=== PATIENT | male | born 1945 | race Hispanic/Latino ===

== ENCOUNTER 2018-04-25 20:08 | Emergency (ER) | payer BC, OTHER ==
--- OUTSIDE RECORDS SUMMARY | 2018-04-25 20:10 | XMS REPORT | Clinical Summary ---
:1945 Author Organization [facility] Address [address] [place] [address] Care Team Providers Name Role Phone Asked, No Pcp Primary Care Provider Unavailable Allergies Not on File Current Medications Prescription Sig. Disp. Refills Start Date End Date Status metFORMIN (GLUCOPHAGE) Take 1,000 mg by Active 500 mg tablet mouth 2 (two) times a day with meals. chlorthalidone Take 25 mg by mouth Active (HYGROTEN) 25 MG tablet daily. repaglinide (PRANDIN) 1 Take 1 mg by mouth 3 Active MG tablet (three) times a day before meals. amLODIPine (NORVASC) 5 Take 5 mg by mouth Active mg tablet daily. olmesartan (BENICAR) 40 Take 40 mg by mouth Active MG tablet daily. atorvastatin (LIPITOR) Take 40 mg by mouth Active 40 MG tablet daily. hydrALAZINE (APRESOLINE) Take 50 mg by mouth Active 50 MG tablet 2 (two) times a day. clopidogrel (PLAVIX) 75 Take 75 mg by mouth Active mg tablet daily. famotidine (PEPCID) 20 Take 20 mg by mouth Active MG tablet 2 (two) times a day as needed for indigestion or heartburn. omega-3 acid ethyl Take 1 g by mouth 2 Active esters (LOVAZA) 1 gram (two) times a day. capsule nebivolol (BYSTOLIC) 5 Take 5 mg by mouth Active MG tablet daily. aspirin (ECOTRIN) 81 MG Take 81 mg by mouth Active enteric coated tablet daily. nitroglycerin Place 0.4 mg under Active (NITROSTAT) 0.4 MG SL the tongue every 5 tablet (five) minutes as needed for chest pain. sodium chloride (OCEAN) 1 spray into each Active 0.65 % nasal spray nostril as needed for rhinitis. insulin GLARGINE Inject 28 Units Active (LANTUS) 100 unit/mL under the skin injection (vial) daily. Active Problems Problem Noted Date Chest pain 01/22/2017 Coronary artery disease involving [place] coronary artery 01/22/2017 Type 2 diabetes mellitus 01/22/2017 Essential hypertension 01/22/2017 Family History Medical History Relation Name Comments Diabetes Father Relation Name Status Comments Father Social History Tobacco Use Types Packs/Day Years Used Date Former Smoker Cigarettes 2 1.5 Quit: 1986 Alcohol Use Drinks/Week oz/Week Comments Yes sociable Sex Assigned at Date Recorded Not on file Last Filed Vital Signs Not on file Plan of Treatment Health Maintenance Due Date Last Done Comments DIABETIC FOOT EXAM 01/07/1954 DIABETIC RETINAL EYE EXAM 01/07/1954 URINE MICROALBUMIN 01/07/1954 COLON CANCER SCREENING 01/07/1994 SHINGRIX VACCINE (#1) 01/07/1994 ZOSTER VACCINE 2004 PNEUMOCOCCAL POLYSACCHARIDE VACCINE AGE 65 AND OVER 01/07/2009 PNEUMOCOCCAL-13 01/07/2009 INFLUENZA VACCINE 06/06/2018 Results Not on fileafter 04/24/2017 Insurance Payer Benefit Plan / Group Subscriber ID Type Phone Address BCBS BCBS CHOICE PPO/FEDERAL EMPL PPO xxxxxxxxxxxx PPO MEDICARE MEDICARE PART A AND B xxxxxxxxxx Medicare [place], [place] Home: [id number] [address] y [phone] [id number]
[2018-04-25] MEDS ORDERED: FLUORESCEIN SODIUM 0.6 MG/WRAP ONE (20:39)
[2018-04-25] MEDS ORDERED: TETRACAINE HCL 0.5% 2ML OPTH ONE (20:40)
--- NOTE | 2018-04-25 21:50 | EDPHYS ---
Physician Documentation [facility] Name: Kel Clark Age: 73 yrs Sex: Male : 1945 Arrival Date: 04/25/2018 Time: 20:12 Bed 10 Private MD: Blake Patel V ED Physician Salomon Marshall HPI: 04/26 00:00 This 73 yrs old Male presents to ER via Ambulatory with complaints of Left Eye pm1 Pain. 00:00 The patient is experiencing itching. 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 Duration: the symptoms are continuous. Aggravated by closing eye, Alleviated by nothing. Associated signs and symptoms: Pertinent negatives: None. fever, headache. Patient wears glasses. Severity of symptoms: in the emergency department the symptoms are unchanged. The patient has been recently seen by a physician: Dr. Griffin Rousseau with left eye injections for DM retinopathy. No changes in vision. Historical: - Allergies: 04/25 20:23 No Known Allergies; aj1 - Home Meds: 20:23 aspirin 325 mg Oral TbEC 1 tab once daily [Active]; Plavix 75 mg Oral tab 1 tab once aj1 daily [Active]; atorvastatin 40 mg Oral tab 1 tab once daily [Active]; Benicar 20 mg Oral tab 1 tab once daily [Active]; Insulin: Regular Sub-Q [Active]; Januvia 100 mg Oral tab 1 tab once daily [Active]; - PMHx: 20:23 Diabetes - IDDM; High Cholesterol; Hypertension; aj1 20:24 cardiac stent; aj1 - PSHx: 20:23 None; aj1 - Immunization history:: Flu vaccine is not up to date. - Social history:: Smoking status: Patient/guardian denies using tobacco. - Ebola Screening: : Patient denies travel to an Ebola-affected area in the 21 days before illness onset. ROS: 04/26 00:00 Constitutional: Negative for fever, chills, and weight loss. pm1 ENT: Negative for injury, pain, and discharge, Neck: Negative for injury, pain, and swelling, Cardiovascular: Negative for chest pain, palpitations, and edema, Respiratory: Negative for shortness of breath, cough, wheezing, and pleuritic chest pain, Abdomen/GI: Negative for abdominal pain, nausea, vomiting, diarrhea, and constipation, Back: Negative for injury and pain, : Negative for injury, bleeding, discharge, and swelling, MS/Extremity: Negative for injury and deformity, Skin: Negative for injury, rash, and discoloration. Neuro: Negative for headache, weakness, numbness, tingling, and seizure. Eyes: Positive for foreign body sensation, Negative for itching, matting, pain, vision loss, visual disturbance. Exam: 00:00 Visual Acuity: I have reviewed the nursing documentation. pm1 00:00 Constitutional: This is a well developed, well nourished patient who is awake, alert, and in no acute distress. Head/Face: Normocephalic, atraumatic. 00:00 Eyes: Periorbital structures: appear normal, Pupils: no acute changes, Extraocular movements: no acute changes, Conjunctiva: injected, in the left eye, Corneas: are normal, no acute changes, no evidence of abrasion, no foreign body, abrasion, is not appreciated, foreign body, is not appreciated, a fluorescein strip employed to appreciate the findings, Sclera: no appreciated abnormality, no acute changes, Anterior chamber: normal, no acute changes, Lids and lashes: appear normal. Vital Signs: 04/25 20:24 BP 122 / 87; Pulse 60; Resp 18; Temp 97.5; Pulse Ox 97% on R/A; Weight 96.62 kg; Height aj1 5 ft. 6 in. (167.64 cm); Pain 9/10; 22:08 BP 164 / 64; Pulse 61; Resp 18 S; Temp 97.1(O); Pulse Ox 97% on R/A; Pain 2/10; bb 20:24 Body Mass Index 34.38 (96.62 kg, 167.64 cm) aj1 MDM: 21:00 Patient medically screened. pm1 21:47 Data reviewed: vital signs. Counseling: I had a detailed discussion with the patient pm1 and/or guardian regarding: the historical points, exam findings, and any diagnostic results supporting the discharge/admit diagnosis, the need for outpatient follow up, to return to the emergency department if symptoms worsen or persist or if there are any questions or concerns that arise at home. 04/25 21:11 Order name: Visual Acuity; Complete Time: 21:15 pm1 04/25 21:11 Order name: Eye Tray; Complete Time: 21:15 pm1 04/25 21:11 Order name: Fluoresene Opth strip; Complete Time: 21:15 pm1 Administered Medications: 21:15 Drug: Tetracaine Drops 0.5 % 1 drops Route: Ophthalmic; Site: left eye; bb Disposition: 04/26 15:34 Co-signature as Attending Physician, Salomon Marshall MD I agree with the assessment and mychal plan of care. Disposition: 04/25/18 21:50 Discharged to Home. Impression: Ocular pain, left eye - localized post injection. - Condition is Stable. - Medication Reconciliation Form, Thank You Letter, Antibiotic Education, Prescription Opioid Use form. - Follow up: Emergency Department; When: As needed; Reason: Worsening of condition. Follow up: Private Physician; When: 2 - 3 days; Reason: Recheck today's complaints, Continuance of care, Re-evaluation by your physician. - Problem is new. - Symptoms have improved. Signatures: Erika Sneed RN RN aj1 Salomon Marshall MD MD cha Ballard, Brenda, RN RN bb Dax Lyles, GARNISHER GARNISHER pm1 Corrections: (The following items were deleted from the chart) 04/25 22:09 21:50 04/25/2018 21:50 Discharged to Home. Impression: Ocular pain, left eye - bb localized post injection. Condition is Stable. Forms are Medication Reconciliation Form, Thank You Letter, Antibiotic Education, Prescription Opioid Use. Follow up: Emergency Department; When: As needed; Reason: Worsening of condition. Follow up: Private Physician; When: 2 - 3 days; Reason: Recheck today's complaints, Continuance of care, Re-evaluation by your physician. Problem is new. Symptoms have improved. pm1
--- NOTE | 2018-04-25 21:50 | ER ---
Nurse's Notes [facility] Name: Kel Clark Age: 73 yrs Sex: Male : 1945 Arrival Date: 04/25/2018 Time: 20:12 Bed 10 Private MD: Blake Patel V Diagnosis: Ocular pain, left eye-localized post injection Presentation: 04/25 20:19 Presenting complaint: Patient states: He went to go get his eye doctor and he got an aj1 injection his eye, and now his left eye is hurting and feels like its scratched when he closes his eye. States this is his 3rd injection and hes never had a feeling like this before. Transition of care: patient was not received from another setting of care. Mechanism of Injury: No Mechanism of Injury. The patient denies any loss of vision. Onset of symptoms was April 25, 2018. Risk Assessment: Do you want to hurt yourself or someone else? Patient reports no desire to harm self or others. Initial Sepsis Screen: Does the patient meet any 2 criteria? No. Patient's initial sepsis screen is negative. Does the patient have a suspected source of infection? No. Patient's initial sepsis screen is negative. Care prior to arrival: None. 20:19 Method Of Arrival: Ambulatory aj1 20:19 Acuity: SAMEER 4 aj1 Triage Assessment: 20:24 General: Appears in no apparent distress. uncomfortable, Behavior is calm, cooperative, aj1 appropriate for age. Pain: Complains of pain in left eye Pain does not radiate. Pain currently is 9 out of 10 on a pain scale. Quality of pain is described as burning, Is continuous. EENT: Reports eye pain. Historical: - Allergies: 20:23 No Known Allergies; aj1 - Home Meds: 20:23 aspirin 325 mg Oral TbEC 1 tab once daily [Active]; Plavix 75 mg Oral tab 1 tab once aj1 daily [Active]; atorvastatin 40 mg Oral tab 1 tab once daily [Active]; Benicar 20 mg Oral tab 1 tab once daily [Active]; Insulin: Regular Sub-Q [Active]; Januvia 100 mg Oral tab 1 tab once daily [Active]; - PMHx: 20:23 Diabetes - IDDM; High Cholesterol; Hypertension; aj1 20:24 cardiac stent; aj1 - PSHx: 20:23 None; aj1 - Immunization history:: Flu vaccine is not up to date. - Social history:: Smoking status: Patient/guardian denies using tobacco. - Ebola Screening: : Patient denies travel to an Ebola-affected area in the 21 days before illness onset. Screenin:38 Abuse screen: Denies threats or abuse. Nutritional screening: No deficits noted. bb Tuberculosis screening: No symptoms or risk factors identified. Fall Risk None identified. Assessment: 20:38 General: Appears in no apparent distress. Behavior is calm, cooperative. Pain: bb Complains of pain in left eye. Neuro: Level of Consciousness is awake, alert, obeys commands, Oriented to person, place, time, situation. Cardiovascular: No deficits noted. Respiratory: Respiratory effort is even, labored. GI: No signs and/or symptoms were reported involving the gastrointestinal system. EENT: Eyes left eye reddened. Sclera/Cornea are reddened in left eye Reports pain in left eye. Musculoskeletal: Circulation, motion, and sensation intact. 21:14 Reassessment: VA cc OD 20/30, OS CF, OU 20/30 pupils 5 mm bilaterally. bb 22:07 Reassessment: Patient is alert, oriented x 3, equal unlabored respirations, skin bb warm/dry/pink. pt verbalized understanding of and agrees to plan of care discharge instructions given, pt ambulated with steady gait to exit accompanied by spouse. Vital Signs: 20:24 BP 122 / 87; Pulse 60; Resp 18; Temp 97.5; Pulse Ox 97% on R/A; Weight 96.62 kg; Height aj1 5 ft. 6 in. (167.64 cm); Pain 9/10; 22:08 BP 164 / 64; Pulse 61; Resp 18 S; Temp 97.1(O); Pulse Ox 97% on R/A; Pain 2/10; bb 20:24 Body Mass Index 34.38 (96.62 kg, 167.64 cm) aj1 ED Course: 20:12 Patient arrived in ED. es 20:12 Blake Patel MD is Private Physician. es 20:21 Triage completed. aj1 20:24 Arm band placed on Patient placed in waiting room, Patient notified of wait time. aj1 20:38 Patient has correct armband on for positive identification. Call light in reach. Adult bb w/ patient. 20:54 Dax Lyles NP is PHCP. pm1 20:54 Salomon Marshall MD is Attending Physician. pm1 21:12 Lena Rodrigez, RN is Primary Nurse. bb 21:15 Assist provider with eye exam of left eye. using fluorescein stain, Performed by fredi Lyles NP Patient tolerated well. 22:09 Patient did not have IV access during this emergency room visit. bb Administered Medications: 21:15 Drug: Tetracaine Drops 0.5 % 1 drops Route: Ophthalmic; Site: left eye; bb Outcome: 21:50 Discharge ordered by . pm1 22:08 Discharged to home ambulatory, with family. bb 22:08 Condition: stable 22:08 Discharge instructions given to patient, Instructed on discharge instructions, follow up and referral plans. Demonstrated understanding of instructions, follow-up care. 22:09 Patient left the ED. bb Signatures: Erika Sneed RN RN aj1 Shana Witt Lena Rodrigez, SUNNY RN Dax Smith, MESSI OPTOMETRY ASSISTANT pm1
== END 2018-04-25 22:09 | disposition home or self-care (01) ==
LOC: ER 20:08
DX: H57.12 Ocular pain, left eye (principal); E11.9 Type 2 diabetes mellitus without complications; I10 Essential (primary) hypertension; E78.00 Pure hypercholesterolemia, unspecified; Z79.4 Long term (current) use of insulin
CPT/HCPCS: 99283

== ENCOUNTER 2019-10-28 08:49 | Day surgery (SDC) | payer BC, OTHER ==
--- NOTE | 2019-10-25 09:18 | RAD REPORT ---
EXAM DESCRIPTION: RAD - Chest Pa And Lat (2 Views) - 10/25/2019 8:56 am CLINICAL HISTORY: preop, soft tissue mass removal from the head COMPARISON: November 2017 TECHNIQUE: PA and lateral views of the chest were obtained. FINDINGS: The lungs are clear. Lung parenchyma is similar to comparison. Diaphragm is flattened als o similar to comparison. Heart size is normal and central vasculature is within normal limits. No pl eural effusion or pneumothorax seen. No acute bony finding noted. No aortic abnormality. IMPRESSION: No acute cardiopulmonary process. No identifiable changes from comparison.
[2019-10-25 09:24] LABS: Absolute Lymphocytes (CBC) 1.4 K/uL (0.7-4.9); Hematocrit 34.1 % (39.6-49.0); Lymphocytes % 29.5 % (15.3-44.8); MPV 9.5 fL (7.6-11.3); RBC Red Blood Cell Count 3.89 M/uL (4.33-5.43)
[2019-10-25 10:18] LABS: Potassium 4.7 mmol/L (3.5-5.1)
--- NOTE | 2019-10-25 16:35 | EKG ---
Test Date: 2019-10-25 Test Time: 08:41:25 Beverage Inspection Machine Tender: CRAMEN MEASUREMENT RESULTS: Intervals: Rate: 50 MS: 180 QRSD: 82 QT: 470 QTc: 428 [place]: P: 37 MS: 180 QRS: 21 T: 64 INTERPRETIVE STATEMENTS: Sinus bradycardia Otherwise normal ECG Compared to ECG 07/12/2012 15:59:47 Sinus rhythm no longer present Sinus arrhythmia no longer present Electronically Signed On 10-25-19 16:33:54 INCOMING FREIGHT CLERK by Amando Huff
[2019-10-28] MEDS ORDERED: NA CHLORIDE 0.9% 1,000 ML ONE (09:57)
[2019-10-28] MEDS ORDERED: CEFAZOLIN/SWI 1gm 1 GM/10 ML SYR ONE (09:57)
[2019-10-28] MEDS ORDERED: propofoL 200 MG/20 ML VIAL IV ONE (11:32)
[2019-10-28] MEDS ORDERED: FENTANYL CITR 100 MCG/2 ML ONE (11:32)
[2019-10-28] MEDS ORDERED: LIDOCAINE 1% MPF 5 ML VIAL ONE (11:32)
[2019-10-28] MEDS ORDERED: KETOROLAC 30 MG/ML INJ ONE (12:22)
[2019-10-28] MEDS ORDERED: ONDANSETRON 4 MG/2 ML VIAL ONE ×2 (12:23→13:56)
--- NOTE | 2019-10-28 12:50 | P.BOP ---
Preoperative diagnosis: tender scalp mass Postoperative diagnosis: same Primary procedure: Excisional biopsy of tender scalp mass 2.5 x 2.5 cm Estimated blood loss: <10cc Specimen: mass Findings: mass Anesthesia: General Complications: None Transferred to: Recovery Room Condition: Good
[2019-10-28] MEDS: HYDRALAZINE HCL 20 MG/ML VIAL ONE ×2 (13:16→13:46)
[2019-10-28] MEDS: MORPHINE 4 MG/ML SYR ONE ×2 (13:53→14:00)
[2019-10-28] MEDS ORDERED: CODEINE 30MG/APAP 300MG TAB ONE (14:38)
[2019-10-28 14:41] VITALS: BP 165/50; TEMP 96.8; O2SAT 98
--- NOTE | 2019-10-28 22:57 | OP ---
Date of Procedure: 10/28/2019 Surgeon: Chano Fernández MD Preoperative Diagnosis: Tender scalp mass with ulceration. Postoperative Diagnosis: Tender scalp mass with ulceration. Procedure: Excisional biopsy of tender scalp mass, 2.5 x 2.5 cm. Estimated Blood Loss: Less than 10 mL. Specimen: Mass. Findings: Subcutaneous mass with involvement of the skin, so both of them were removed at the same t reed. Anesthesia: General plus local. Indications: This is the case of a 74-year-old patient with ulcerated mass in his scalp. Given pain and discomfort, he wants it excised. Benefits, alternatives, and risks of excision were fully expla ined which include but are not limited to infection, bleeding, damage to adjacent structures, anesthe lele complication, recurrence, MO, and even . He also understands this may not relieve any sympt oms. He might need more than one surgical intervention. He understood, signed a consent. Description Of Procedure: Patient was brought to the operating room, placed in supine position. Ane sthesia was done without complication. A time-out was called. The area of concern was marked by me and the patient in the holding room. The patient was placed in lateral decubitus position with prope r protection. Local anesthesia was applied followed by sharp incision of the skin all the way down t o deep subcutaneous tissue. Bone is not involved. Hemostasis was obtained. Local anesthesia was ap plied. Irrigation was done and then the area was closed with suture mattress 2-0 nylon interrupted m ultiple times. Patient tolerated the procedure well. Mass was sent to the pathologist. Sponge count and instrument counts were correct. Patient was sent to the [facility] in stable condition. SHEA/NEDRA Voice ID: [id number] Report ID: [id number]
--- NOTE | 2019-10-28 23:03 | DS ---
Date of Discharge: 10/28/2019 Diagnosis: Tender scalp mass. Procedure: Excisional biopsy of ulcerated tender scalp mass. Disposition: Home. Activity: As tolerated. No heavy lifting. Followup: Follow up in my office in 1 week. Call for appointment at [phone]. Instructions: Keep area dry for 48 hours, then may shower. After shower and remove the gauze, severino wilson put triple antibiotics over the area. SHEA/NEDRA Voice ID: [id number] Report ID: [id number]
== END 2019-10-28 15:15 | disposition home or self-care (01) ==
LOC: OR 08:49
PROVIDERS: ATTEND Surgery
PROC: 0JB00ZZ Excision of Scalp Subcutaneous Tissue and Fascia, Open Approach (ICD-10-PCS; principal; 2019-10-28 13:30)
DX: L72.11 Pilar cyst (principal); L98.499 Non-pressure chronic ulcer of skin of other sites with unspecified severity; E11.622 Type 2 diabetes mellitus with other skin ulcer; I10 Essential (primary) hypertension; I25.10 Atherosclerotic heart disease of native coronary artery without angina pectoris; K21.9 Gastro-esophageal reflux disease without esophagitis; Z79.02 Long term (current) use of antithrombotics/antiplatelets; Z79.4 Long term (current) use of insulin; Z87.891 Personal history of nicotine dependence; Z95.5 Presence of coronary angioplasty implant and graft
CPT/HCPCS: 93005; 85025; 80048; 36415; 82947 ×2; 88304; 71046; 11423; J0360; J2704; J3010; J0690; J7030; J2405 ×2

== ENCOUNTER 2019-11-01 08:45 | Emergency (ER) | payer BC, OTHER ==
[2019-11-01 09:36] LABS: Absolute Lymphocytes (CBC) 1.2 K/uL (0.7-4.9); Basophils % 0.8 % (0-1.3); Hematocrit 32.6 % (39.6-49.0); Lymphocytes % 20.5 % (15.3-44.8); MPV 9.7 fL (7.6-11.3); Protime INR 1.04; RBC Red Blood Cell Count 3.77 M/uL (4.33-5.43)
[2019-11-01 09:46] LABS: Potassium 4.6 mmol/L (3.5-5.1)
--- NOTE | 2019-11-01 11:23 | RAD REPORT ---
EXAM DESCRIPTION: US - Upper Ext Artery Uni Lui - 11/01/2019 11:09 am CLINICAL HISTORY: right arm swelling COMPARISON: None. TECHNIQUE: Sonographic evaluation of the right upper extremity arterial tree performed. FINDINGS: Right common carotid artery is patent with normal velocity. Right subclavian artery is als o patent with peak systolic velocity of 115 cm/second. Right axillary artery shows an elevated veloci ty to 163 cm per second. There is no focal plaque or stenosis. Brachial artery patency is seen with a 99 cm/second peak systolic velocity. Radial and ulnar arteries are also patent. No focal stenosis or occlusion. IMPRESSION: No focal stenosis, occlusion or other significant right upper extremity arterial finding .
--- NOTE | 2019-11-01 11:26 | RAD REPORT ---
EXAM DESCRIPTION: US - UPPER EXTREMITY VENOUS UNILATE - 11/01/2019 11:11 am CLINICAL HISTORY: Right arm pain and swelling COMPARISON: None. TECHNIQUE: Real-time sonographic evaluation of the right upper extremity deep venous systems was per formed. FINDINGS: Normal compressibility, flow augmentation, phasic flow and spontaneous flow are identified in the right upper extremity deep venous system. No intraluminal filling defects seen. Internal jugu lar and subclavian veins are normal as well. IMPRESSION: No DVT in the right upper extremity.
--- NOTE | 2019-11-01 11:57 | ER ---
Nurse's Notes [facility] Name: Kel Clark Age: 74 yrs Sex: Male : 1945 Arrival Date: 11/01/2019 Time: 08:46 Bed 6 Private MD: Blake Patel V; Martinez, Henry Diagnosis: Left Upper extremity Swelling. Cellulitis, Thrombophlebitis left arm Presentation: 11/01 08:58 Presenting complaint: Right lower arm and hand swelling x 5 days. Transition of care: hb patient was not received from another setting of care. Onset of symptoms was October 28, 2019. Risk Assessment: Do you want to hurt yourself or someone else? Patient reports no desire to harm self or others. Initial Sepsis Screen: Does the patient meet any 2 criteria? No. Patient's initial sepsis screen is negative. Does the patient have a suspected source of infection? No. Patient's initial sepsis screen is negative. Care prior to arrival: None. 08:58 Method Of Arrival: Ambulatory hb 08:58 Acuity: SAMEER 3 hb Triage Assessment: 09:00 General: Appears in no apparent distress. comfortable, obese, Behavior is cooperative, bp appropriate for age, anxious. Pain: Complains of pain in right arm. EENT: No deficits noted. Neuro: No deficits noted. Cardiovascular: No deficits noted. Respiratory: No deficits noted. GI: No signs and/or symptoms were reported involving the gastrointestinal system. : No signs and/or symptoms were reported regarding the genitourinary system. Derm: No deficits noted. Musculoskeletal: Swelling present in right arm. Historical: - Allergies: 08:59 No Known Allergies; hb - Home Meds: 08:59 aspirin 325 mg Oral TbEC 1 tab once daily [Active]; atorvastatin 40 mg Oral tab 1 tab hb once daily [Active]; Benicar 20 mg Oral tab 1 tab once daily [Active]; Insulin: Regular Sub-Q [Active]; Januvia 100 mg Oral tab 1 tab once daily [Active]; Plavix 75 mg Oral tab 1 tab once daily [Active]; - PMHx: 08:59 cardiac stent; Diabetes - IDDM; High Cholesterol; Hypertension; hb - PSHx: 08:59 None; hb - Immunization history:: Adult Immunizations up to date. - Social history:: Smoking status: Patient/guardian denies using tobacco. - Ebola Screening: : No symptoms or risks identified at this time. Screenin:00 Abuse screen: Denies threats or abuse. Denies injuries from another. Nutritional bp screening: No deficits noted. Tuberculosis screening: No symptoms or risk factors identified. Fall Risk None identified. Assessment: 09:00 General: SEE TRIAGE NOTE. bp 09:48 Reassessment: Patient appears in no apparent distress at this time. pt remains off the sg unit in ultrasound/radiology at this time. 11:00 Reassessment: PT RETURNED FROM U/S. bp 12:07 Reassessment: PT D/C HOME AMBULATORY, DX WITH CELLULITIS. bp Vital Signs: 08:59 BP 224 / 71; Pulse 60; Resp 16; Temp 97.9; Pulse Ox 100% on R/A; Pain 3/10; hb 09:20 BP 192 / 77; Pulse 66; Resp 16; Pulse Ox 100% on R/A; sg 11:00 BP 185 / 75; Pulse 61; Resp 16; Pulse Ox 100% ; bp 12:08 BP 187 / 77; Pulse 68; Resp 17; Temp 98; Pulse Ox 100% ; bp ED Course: 08:46 Patient arrived in ED. as 08:47 Chano Fernández MD is Private Physician. as 08:47 Blake Patel MD is Private Physician. as 08:53 Kel Rai, SUNNY is Primary Nurse. bp 08:55 Erick Chicas MD is Attending Physician. kdr 08:59 Triage completed. hb 08:59 Arm band placed on. hb 09:00 Patient has correct armband on for positive identification. Bed in low position. Call bp light in reach. Side rails up X2. 09:19 Initial lab(s) drawn, by me, sent to lab. Inserted saline lock: 20 gauge in left sg antecubital area, using aseptic technique. Blood collected. 11:16 Upper Ext Artery Uni Lui In Process Unspecified. EDMS 11:16 UPPER EXTREMITY VENOUS UNILATE In Process Unspecified. EDMS 11:44 Blake Patel MD is Referral Physician. kdr 12:07 No provider procedures requiring assistance completed. IV discontinued, intact, bp bleeding controlled, No redness/swelling at site. Pressure dressing applied. Administered Medications: 11:50 Drug: KeFLEX 500 mg Route: PO; bp 12:09 Follow up: Response: No adverse reaction bp Outcome: 11:56 Discharge ordered by . kdr 12:08 Discharged to home ambulatory. bp 12:08 Condition: stable 12:08 Discharge instructions given to patient, Instructed on discharge instructions, follow up and referral plans. medication usage, Demonstrated understanding of instructions, follow-up care, medications, Prescriptions given X 2. 12:09 Patient left the ED. bp Signatures: Dispatcher [employer] EDMS Eren Lares RN RN sg Erick Chicas MD MD kdr Martinez, Amelia as Araseli Fritz RN RN Kel Rai RN RN bp Corrections: (The following items were deleted from the chart) 09:17 08:58 Acuity: SAMEER 4 hb hb
--- NOTE | 2019-11-01 11:58 | EDPHYS ---
Physician Documentation [facility] Name: Kel Clark Age: 74 yrs Sex: Male : 1945 Arrival Date: 11/01/2019 Time: 08:46 Bed 6 Private MD: Blake Patel V; Martinez, Henry ED Physician Erick Chicas HPI: 11/01 09:05 This 74 yrs old Male presents to ER via Ambulatory with complaints of Hand kdr Swelling. 09:05 The patient or guardian reports decreased range of motion, swelling. The complaints kdr affect the right hand diffusely. Context: The problem was sustained at home, resulted from The patient had an IV on Monday in his right hand and has had the swelling since then to the right arm. He denies CP/SOB. He was here today as an outpatient for an US of his abdomen when it was noted that he had right arm swelling and he was sent to the ED for evaluation. Onset: The symptoms/episode began/occurred gradually, Since Monday. Modifying factors: The symptoms are alleviated by nothing, the symptoms are aggravated by nothing. Associated signs and symptoms: The patient has no apparent associated signs or symptoms. Severity of symptoms: At their worst the symptoms were mild, moderate, just prior to arrival, in the emergency department the symptoms are unchanged. The patient has not experienced similar symptoms in the past. The patient has been recently seen by a physician: The patient had a superficial excision on his posterior scalp on Monday which is what necessitated the IV. Historical: - Allergies: 08:59 No Known Allergies; hb - Home Meds: 08:59 aspirin 325 mg Oral TbEC 1 tab once daily [Active]; atorvastatin 40 mg Oral tab 1 tab hb once daily [Active]; Benicar 20 mg Oral tab 1 tab once daily [Active]; Insulin: Regular Sub-Q [Active]; Januvia 100 mg Oral tab 1 tab once daily [Active]; Plavix 75 mg Oral tab 1 tab once daily [Active]; - PMHx: 08:59 cardiac stent; Diabetes - IDDM; High Cholesterol; Hypertension; hb - PSHx: 08:59 None; hb - Immunization history:: Adult Immunizations up to date. - Social history:: Smoking status: Patient/guardian denies using tobacco. - Ebola Screening: : No symptoms or risks identified at this time. ROS: 09:05 Constitutional: Negative for fever, chills, and weight loss, Eyes: Negative for injury, kdr pain, redness, and discharge, ENT: Negative for injury, pain, and discharge, Neck: Negative for injury, pain, and swelling, Cardiovascular: Negative for chest pain, palpitations, and edema, Respiratory: Negative for shortness of breath, cough, wheezing, and pleuritic chest pain, Abdomen/GI: Negative for abdominal pain, nausea, vomiting, diarrhea, and constipation, Back: Negative for injury and pain, : Negative for injury, bleeding, discharge, and swelling, Skin: Negative for injury, rash, and discoloration, Neuro: Negative for headache, weakness, numbness, tingling, and seizure activity. Psych: Negative for depression, anxiety, suicide ideation, homicidal ideation, and hallucinations, Allergy/Immunology: Negative for hives, rash, and allergies, Endocrine: Negative for neck swelling, polydipsia, polyuria, polyphagia, and marked weight changes, Hematologic/Lymphatic: Negative for swollen nodes, abnormal bleeding, and unusual bruising. 09:05 MS/extremity: Positive for swelling, of the right arm. Exam: 09:05 Constitutional: This is a well developed, well nourished patient who is awake, alert, kdr and in no acute distress. Head/Face: Normocephalic, atraumatic. Eyes: Pupils equal round and reactive to light, extra-ocular motions intact. Lids and lashes normal. Conjunctiva and sclera are non-icteric and not injected. Cornea within normal limits. Periorbital areas with no swelling, redness, or edema. Neck: Trachea midline, no thyromegaly or masses palpated, and no cervical lymphadenopathy. Supple, full range of motion without nuchal rigidity, or vertebral point tenderness. No Meningismus. Chest/axilla: Normal chest wall appearance and motion. Nontender with no deformity. No lesions are appreciated. Cardiovascular: Regular rate and rhythm with a normal S1 and S2. No gallops, murmurs, or rubs. Normal PMI, no JVD. No pulse deficits. Respiratory: Lungs have equal breath sounds bilaterally, clear to auscultation and percussion. No rales, rhonchi or wheezes noted. No increased work of breathing, no retractions or nasal flaring. Abdomen/GI: Soft, non-tender, with normal bowel sounds. No distension or tympany. No guarding or rebound. No evidence of tenderness throughout. Back: No spinal tenderness. No costovertebral tenderness. Full range of motion. Skin: Warm, dry with normal turgor. Normal color with no rashes, no lesions, and no evidence of cellulitis. Neuro: Awake and alert, GCS 15, oriented to person, place, time, and situation. Cranial nerves II-XII grossly intact. Motor strength 5/5 in all extremities. Sensory grossly intact. Cerebellar exam normal. Normal gait. Psych: Awake, alert, with orientation to person, place and time. Behavior, mood, and affect are within normal limits. 09:05 Musculoskeletal/extremity: Extremities: grossly normal except: noted in the right arm: decreased ROM, pain, swelling, tenderness. Vital Signs: 08:59 BP 224 / 71; Pulse 60; Resp 16; Temp 97.9; Pulse Ox 100% on R/A; Pain 3/10; hb 09:20 BP 192 / 77; Pulse 66; Resp 16; Pulse Ox 100% on R/A; sg 11:00 BP 185 / 75; Pulse 61; Resp 16; Pulse Ox 100% ; bp 12:08 BP 187 / 77; Pulse 68; Resp 17; Temp 98; Pulse Ox 100% ; bp MDM: 09:05 Data reviewed: vital signs, nurses notes, lab test result(s), radiologic studies. kdr Counseling: I had a detailed discussion with the patient and/or guardian regarding: the historical points, exam findings, and any diagnostic results supporting the discharge/admit diagnosis, lab results, radiology results, the need for outpatient follow up. 11:56 Patient medically screened. kdr 11/01 09:05 Order name: CBC with Diff; Complete Time: 10:19 kdr 11/01 09:05 Order name: Chem 7; Complete Time: 10:19 kdr 11/01 09:05 Order name: PT-INR; Complete Time: 10:19 kdr 11/01 09:12 Order name: Upper Ext Artery Uni Lui; Complete Time: 11:34 EDMS 11/01 09:12 Order name: UPPER EXTREMITY VENOUS UNILATE; Complete Time: 11:34 EDMS Administered Medications: 11:50 Drug: KeFLEX 500 mg Route: PO; bp 12:09 Follow up: Response: No adverse reaction bp Disposition: 11/01/19 11:56 Discharged to Home. Impression: Left Upper extremity Swelling. Cellulitis, Thrombophlebitis left arm. - Condition is Stable. - Discharge Instructions: Phlebitis, [id number]. - Prescriptions for Keflex 500 mg Oral Capsule - take 1 capsule by ORAL route every 8 hours for 10 days; 30 capsule. Ibuprofen 600 mg Oral Tablet - take 1 tablet by ORAL route every 6 hours As needed take with food; 30 tablet. - Medication Reconciliation Form, Thank You Letter, Antibiotic Education form. - Follow up: Blake Patel MD; When: 2 - 3 days; Reason: If symptoms return, Further diagnostic work-up, Recheck today's complaints, Continuance of care, Re-evaluation by your physician. - Problem is new. - Symptoms are unchanged. Signatures: Dispatcher [employer] EDMS Erick Chicas MD MD [facility] Araseli Fritz RN RN Kel Rai RN RN bp Corrections: (The following items were deleted from the chart) 09:12 09:06 Extremity Venous Uni Ltd+US.RAD.BRZ ordered. EDMS EDMS 09:12 09:07 Lower Extremity Artery Uni Ltd+US.RAD.BRZ ordered. EDID EDMS 12:09 11:56 11/01/2019 11:56 Discharged to Home. Impression: Left Upper extremity Swelling. bp Cellulitis, Thrombophlebitis left arm. Condition is Stable. Forms are Medication Reconciliation Form, Thank You Letter, Antibiotic Education, Prescription Opioid Use. Follow up: Blake Patel; When: 2 - 3 days; Reason: If symptoms return, Further diagnostic work-up, Recheck today's complaints, Continuance of care, Re-evaluation by your physician. Problem is new. Symptoms are unchanged. kdr
[2019-11-01] MEDS ORDERED: CEPHALEXIN 250 MG CAP ONE (12:05)
[2019-11-01 12:16] VITALS: O2SAT 100
[2019-11-01 12:20] VITALS: BP 187/77; TEMP 98
== END 2019-11-01 12:09 | disposition home or self-care (01) ==
LOC: ER 08:45
DX: L03.114 Cellulitis of left upper limb (principal); I80.8 Phlebitis and thrombophlebitis of other sites; I10 Essential (primary) hypertension; E78.00 Pure hypercholesterolemia, unspecified; E11.9 Type 2 diabetes mellitus without complications; Z95.818 Presence of other cardiac implants and grafts; Z79.01 Long term (current) use of anticoagulants; Z79.4 Long term (current) use of insulin; Z79.82 Long term (current) use of aspirin
CPT/HCPCS: 36415; 80048; 85025; 85610; 93931; 93971; 99284

== ENCOUNTER 2020-03-06 19:07 | Emergency (ER) | payer BC, OTHER ==
--- NOTE | 2020-03-06 20:11 | EDPHYS ---
Physician Documentation [facility] Name: Kel Clark Age: 75 yrs Sex: Male : 1945 Arrival Date: 03/06/2020 Time: 19:08 Bed 12 Private MD: ED Physician Herb Carnes HPI: 03/06 20:17 This 75 yrs old Male presents to ER via Wheelchair with complaints of Foot kb Injury. 20:17 The patient presents with a contusion, an injury, pain, swelling, tenderness. The kb complaints affect the left foot. Context: The problem was sustained outdoors, resulted from a heavy object falling, log, the patient can fully bear weight, the patient is able to ambulate. Onset: The symptoms/episode began/occurred today. Modifying factors: The symptoms are alleviated by nothing, the symptoms are aggravated by nothing. Associated signs and symptoms: Pertinent positives: swelling, Pertinent negatives: calf tenderness, fever, nausea, numbness, rash, tingling, vomiting, warmth, weakness. Severity of symptoms: At their worst the symptoms were moderate, in the emergency department the symptoms are unchanged. The patient has not experienced similar symptoms in the past. The patient has not recently seen a physician. Historical: - Allergies: 19:19 No Known Allergies; ca1 - Home Meds: 19:20 aspirin 81 mg oral chew 1 tab once daily [Active]; Plavix 75 mg Oral tab 1 tab once ca1 daily [Active]; - PMHx: 19:19 cardiac stent; Diabetes - IDDM; High Cholesterol; Hypertension; ca1 - PSHx: 19:19 None; ca1 - Immunization history:: Adult Immunizations up to date, Pneumococcal vaccine is up to date, Flu vaccine is not up to date. - Social history:: Smoking status: Patient denies any tobacco usage or history of. ROS: 20:16 Constitutional: Negative for fever, chills, and weight loss, Cardiovascular: Negative kb for chest pain, palpitations, and edema, Respiratory: Negative for shortness of breath, cough, wheezing, and pleuritic chest pain, Abdomen/GI: Negative for abdominal pain, nausea, vomiting, diarrhea, and constipation, Back: Negative for injury and pain, MS/Extremity: Negative for injury and deformity, Neuro: Negative for headache, weakness, numbness, tingling, and seizure. 20:16 Skin: Positive for abrasion(s), ecchymosis, swelling, of the dorsum of left foot. Exam: 20:16 Constitutional: This is a well developed, well nourished patient who is awake, alert, kb and in no acute distress. Head/Face: Normocephalic, atraumatic. Chest/axilla: Normal chest wall appearance and motion. Nontender with no deformity. No lesions are appreciated. Cardiovascular: Regular rate and rhythm with a normal S1 and S2. No gallops, murmurs, or rubs. Normal PMI, no JVD. No pulse deficits. Respiratory: Lungs have equal breath sounds bilaterally, clear to auscultation and percussion. No rales, rhonchi or wheezes noted. No increased work of breathing, no retractions or nasal flaring. Abdomen/GI: Soft, non-tender, with normal bowel sounds. No distension or tympany. No guarding or rebound. No evidence of tenderness throughout. MS/ Extremity: Pulses equal, no cyanosis. Neurovascular intact. Full, normal range of motion. Neuro: Awake and alert, GCS 15, oriented to person, place, time, and situation. Cranial nerves II-XII grossly intact. Motor strength 5/5 in all extremities. Sensory grossly intact. Cerebellar exam normal. Normal gait. 20:16 Skin: injury, abrasion(s), very small abrasion noted, of the dorsum of left foot, contusion(s), that are superficial, of the dorsum of left foot. Vital Signs: 19:14 BP 191 / 78; Pulse 54; Resp 17 S; Temp 97.5(TE); Pulse Ox 99% on R/A; Weight 90.72 kg ca1 (R); Height 5 ft. 7 in. (170.18 cm) (R); Pain 2/10; 20:20 BP 181 / 73; Pulse 65; Resp 17 S; Pulse Ox 99% on R/A; ca1 19:14 Body Mass Index 31.32 (90.72 kg, 170.18 cm) ca1 MDM: 19:59 Patient medically screened. kb 20:16 Data reviewed: vital signs, nurses notes. Data interpreted: Pulse oximetry: on room air kb is 99 %. Interpretation: normal. Counseling: I had a detailed discussion with the patient and/or guardian regarding: the historical points, exam findings, and any diagnostic results supporting the discharge/admit diagnosis, radiology results, the need for outpatient follow up, a family practitioner, to return to the emergency department if symptoms worsen or persist or if there are any questions or concerns that arise at home. 03/06 19:25 Order name: XRAY Foot LEFT 3 View ca1 Administered Medications: No medications were administered Disposition: 23:36 Co-signature as Attending Physician, Herb Carnes MD. donna Disposition: 03/06/20 20:11 Discharged to Home. Impression: Contusion of left foot. - Condition is Stable. - Discharge Instructions: Foot Contusion, [id number]. - Medication Reconciliation Form, Thank You Letter, Antibiotic Education, Prescription Opioid Use form. - Follow up: Emergency Department; When: As needed; Reason: Worsening of condition. Follow up: Private Physician; When: 2 - 3 days; Reason: Recheck today's complaints, Continuance of care, Re-evaluation by your physician. Signatures: Dispatcher [employer] EDMS Suzan Monge, MANAGER MEDICAL DEVICE-C MANAGER MEDICAL DEVICE-Herb Carrillo MD MD pkl Acob, Cheryl RN RN ca1 Corrections: (The following items were deleted from the chart) 20:22 20:11 03/06/2020 20:11 Discharged to Home. Impression: Contusion of left foot. ca1 Condition is Stable. Forms are Medication Reconciliation Form, Thank You Letter, Antibiotic Education, Prescription Opioid Use. Follow up: Emergency Department; When: As needed; Reason: Worsening of condition. Follow up: Private Physician; When: 2 - 3 days; Reason: Recheck today's complaints, Continuance of care, Re-evaluation by your physician. kb
--- NOTE | 2020-03-06 20:11 | ER ---
Nurse's Notes [facility] Name: Kel Clark Age: 75 yrs Sex: Male : 1945 Arrival Date: 03/06/2020 Time: 19:08 Bed 12 Private MD: Diagnosis: Contusion of left foot Presentation: 03/06 19:14 Chief complaint: Patient states: "I was cutting a trunk of a tree when a piece of wood ca1 hit my L foot. I am diabetic so am worried". Bruise noted on L foot. Coronavirus screen: Proceed with normal triage. Patient denies a cough. Patient denies shortness of breath or difficulty breathing. Patient denies measured and/or subjective temperature greater than 100.4F prior to today's visit. Patient denies travel on a cruise ship or to a country the [facility] currently lists as an affected area. Patient denies contact with known and/or suspected case of COVID-19. Ebola Screen: Patient negative for fever greater than or equal to 101.5 degrees Fahrenheit, and additional compatible Ebola Virus Disease symptoms Patient denies exposure to infectious person. Patient denies travel to an Ebola-affected area in the 21 days before illness onset. No symptoms or risks identified at this time. Initial Sepsis Screen: Does the patient meet any 2 criteria? No. Patient's initial sepsis screen is negative. Does the patient have a suspected source of infection? No. Patient's initial sepsis screen is negative. Risk Assessment: Do you want to hurt yourself or someone else? Patient reports no desire to harm self or others. Onset of symptoms was March 06, 2020. 19:14 Method Of Arrival: Wheelchair ca1 19:14 Acuity: SAMEER 4 ca1 Triage Assessment: 20:00 Injury Description: Bruise sustained to dorsum of left foot is black, was sustained 2-4 ca1 hours ago. Historical: - Allergies: 19:19 No Known Allergies; ca1 - Home Meds: 19:20 aspirin 81 mg oral chew 1 tab once daily [Active]; Plavix 75 mg Oral tab 1 tab once ca1 daily [Active]; - PMHx: 19:19 cardiac stent; Diabetes - IDDM; High Cholesterol; Hypertension; ca1 - PSHx: 19:19 None; ca1 - Immunization history:: Adult Immunizations up to date, Pneumococcal vaccine is up to date, Flu vaccine is not up to date. - Social history:: Smoking status: Patient denies any tobacco usage or history of. Screenin:59 Abuse screen: Denies threats or abuse. Denies injuries from another. Nutritional ca1 screening: No deficits noted. Tuberculosis screening: No symptoms or risk factors identified. Fall Risk None identified. Assessment: 19:59 General: Appears in no apparent distress. comfortable, Behavior is calm, cooperative, ca1 appropriate for age. Pain: Complains of pain in dorsum of left foot Pain currently is 3 out of 10 on a pain scale. Pain began 3 hours ago. Neuro: Level of Consciousness is awake, alert, obeys commands, Oriented to person, place, time, situation, Appropriate for age. Derm: Skin is intact, is healthy with good turgor, Skin is pink, warm \\T\\ dry. Bruising that is dark purple, on dorsum of left foot. Musculoskeletal: Circulation, motion, and sensation intact. Capillary refill < 3 seconds, Range of motion: intact in all extremities. 20:20 Reassessment: Patient appears in no apparent distress at this time. Patient is alert, ca1 oriented x 3, equal unlabored respirations, skin warm/dry/pink. "I normally have high BP. I take 4 meds for it but it still does not go down. They say it's because of my heart and my kidneys". Vital Signs: 19:14 BP 191 / 78; Pulse 54; Resp 17 S; Temp 97.5(TE); Pulse Ox 99% on R/A; Weight 90.72 kg ca1 (R); Height 5 ft. 7 in. (170.18 cm) (R); Pain 2/10; 20:20 BP 181 / 73; Pulse 65; Resp 17 S; Pulse Ox 99% on R/A; ca1 19:14 Body Mass Index 31.32 (90.72 kg, 170.18 cm) ca1 ED Course: 19:08 Patient arrived in ED. ag5 19:09 Blake Patel MD is Private Physician. ag5 19:18 Triage completed. ca1 19:19 Suzan Monge FNP-C is [facility]. kb 19:19 Herb Carnes MD is Attending Physician. kb 19:19 Arm band placed on right wrist. ca1 19:59 Daniela Beavers, RN is Primary Nurse. ca1 19:59 Patient has correct armband on for positive identification. Bed in low position. Call ca1 light in reach. Side rails up X 1. Pulse ox on. NIBP on. 19:59 No provider procedures requiring assistance completed. Patient did not have IV access ca1 during this emergency room visit. 20:09 XRAY Foot LEFT 3 View In Process Unspecified. EDMS Administered Medications: No medications were administered Outcome: 20:11 Discharge ordered by MD. etienne 20:21 Discharged to home ambulatory. ca1 20:21 Condition: good 20:21 Discharge instructions given to patient, Instructed on discharge instructions, follow up and referral plans. 20:22 Patient left the ED. ca1 Signatures: Dispatcher [employer] EDMS Suzan Monge, GE SANCHEZ-Daniela Gant RN RN ca1 Karrie Carr ag5 Corrections: (The following items were deleted from the chart) 19:19 19:14 Pulse 54bpm; Resp 17bpm; Spontaneous; Pulse Ox 99% RA; Temp 97.5F Temporal; 90.72 ca1 kg Reported; Height 5 ft. 7 in. Reported; BMI: 31.3; Pain 2/10; ca1
--- NOTE | 2020-03-06 20:39 | RAD REPORT ---
EXAM DESCRIPTION: RAD - Foot Left 3 View - 03/06/2020 8:08 pm CLINICAL HISTORY: PAIN COMPARISON: No comparisons FINDINGS: No fracture or dislocation seen. Vascular calcifications are evident. Moderate soft tissue swelling is seen along the dorsum of the forefoot. Prominent calcaneal spurs evident.
== END 2020-03-06 20:22 | disposition home or self-care (01) ==
LOC: ER 19:07
DX: S90.32XA Contusion of left foot, initial encounter (principal); W22.8XXA Striking against or struck by other objects, initial encounter; Y93.9 Activity, unspecified; Y92.89 Other specified places as the place of occurrence of the external cause; Z79.01 Long term (current) use of anticoagulants; Z79.82 Long term (current) use of aspirin; E78.00 Pure hypercholesterolemia, unspecified; I10 Essential (primary) hypertension; E11.9 Type 2 diabetes mellitus without complications; Z95.818 Presence of other cardiac implants and grafts
CPT/HCPCS: 99283

== ENCOUNTER → 2020-04-29 | Day surgery (SDC) | payer BC, OTHER ==
[~2020-04-29] MED LIST: EPOETIN ALFA-EPBX 10,000 UNIT/ML VIAL ONE
--- OUTSIDE RECORDS SUMMARY | 2020-04-29 08:02 | XMS REPORT | Clinical Summary ---
:1945 Author Organization [facility] Address [address] [place] [address] Care Team Providers Name Role Phone Asked, No Pcp Primary Care Provider Unavailable Allergies No Known Allergies Medications Medication Sig Dispensed Refills Start End Date Status Date chlorthalidone Take 25 mg by 0 A ctive (HYGROTEN) 25 MG mouth daily. tablet repaglinide Take 1 mg by 0 Activ e (PRANDIN) 1 MG mouth 3 (three) tablet times a day before meals. atorvastatin Take 40 mg by 0 Act josh (LIPITOR) 40 MG mouth daily. tablet clopidogrel Take 75 mg by 0 Acti ve (PLAVIX) 75 mg mouth daily. tablet famotidine (PEPCID) Take 20 mg by 0 Active 20 MG tablet mouth 2 (two) times a day as needed for indigestion or heartburn. omega-3 acid ethyl Take 1 g by 0 Active esters (LOVAZA) 1 mouth 2 (two) gram capsule times a day. nebivolol Take 5 mg by 0 Active (BYSTOLIC) 5 MG mouth daily. tablet aspirin (ECOTRIN) Take 81 mg by 0 Active 81 MG enteric mouth daily. coated tablet nitroglycerin Place 0.4 mg 0 Act josh (NITROSTAT) 0.4 MG under the SL tablet tongue every 5 (five) minutes as needed for chest pain. sodium chloride 1 spray into 0 A ctive (OCEAN) 0.65 % each nostril as nasal spray needed for rhinitis. multivitamin with Take 1 tablet 0 Active minerals tablet by mouth daily. tamsulosin (FLOMAX) Take 0.4 mg by 0 Active 0.4 mg capsule mouth daily with dinner. pantoprazole Take 40 mg by 0 Act josh (PROTONIX) 40 MG EC mouth 2 (two) tablet times a day. metFORMIN Take 1,000 mg 0 02/04/20 Discon tinued (GLUCOPHAGE) 500 mg by mouth 2 20 (Stop Taking at tablet (two) times a Discha rge) day with meals. amLODIPine Take 5 mg by 0 02/04/20 Discon tinued (NORVASC) 5 mg mouth daily. 20 (S top Taking at tablet Discharge) olmesartan Take 40 mg by 0 02/04/20 Disco ntinued (BENICAR) 40 MG mouth daily. 20 ( Stop Taking at tablet Discharge) hydrALAZINE Take 100 mg by 0 02/04/20 Dis continued (APRESOLINE) 50 MG mouth 2 (two) 20 (Stop Taking at tablet times a day. Luna ge) insulin GLARGINE Inject 28 Units 0 0 Discontinued (LANTUS) 100 under the skin 20 (S top Taking at unit/mL injection daily. Di kimmie) (vial) NIFEdipine XL Take 30 mg by 0 02/04/20 Di scontinued (PROCARDIA XL) 30 mouth daily. 20 (Stop Taking at MG 24 hr tablet Disc harge) spironolactone Take 25 mg by 0 02/04/20 D iscontinued (ALDACTONE) 25 MG mouth daily. 20 (Stop Taking at tablet Discharge) cholecalciferol, Take 2,000 0 02/04/20 Di scontinued vitamin D3, 50 mcg Units by mouth 20 (Stop Taking at (2,000 unit) daily. Luna young) capsule capsule hydrALAZINE Take 1 tablet 90 tablet 2 03/05/20 Expi red (APRESOLINE) 50 MG (50 mg total) 0 20 tablet by mouth every 8 (eight) hours for 30 days. NIFEdipine XL Take 1 tablet 30 tablet 2 03/06/20 Ex pired (PROCARDIA XL) 90 (90 mg total) 0 20 MG 24 hr tablet by mouth daily for 30 days. finasteride Take 1 tablet 30 tablet 2 03/05/20 Expi red (PROSCAR) 5 mg (5 mg total) by 0 20 tablet mouth nightly for 30 days. furosemide (Lasix) Take 1 tablet 60 tablet 0 0 40 mg tablet (40 mg total) 0 20 by mouth 2 (two) times a day for 30 days. Active Problems Problem Noted Date Acute systolic congestive heart failure 01/31/2020 Chest pain 01/22/2017 Coronary artery disease involving [place] coronary [place] 01/22/2017 Type 2 diabetes mellitus 01/22/2017 Essential hypertension 01/22/2017 Encounters Date Type Specialty Care Team Description 02/10/2020 Patient Outreach Quality Jean Pierre Sotomayor, [facility] 02/07/2020 Patient Outreach Quality Jean Pierre Sotomayor [facility] 01/31/2020 - Hospital Encounter General Internal Power, Acute systolic congestive heart failure (HCC) (Primary Dx); 02/04/2020 Medicine MD Yohannes CRISTIAN (acute kidney injury) (HCC); [place], Type 2 diabetes mellitus with hyperosmolarity without coma, with long-term current use of insulin (HCC); Brandon Butler Sr., Essential hyp ertension MD after 04/29/2019 Family History Medical History Relation Name Comments Diabetes Father Relation Name Status Comments Father Social History Tobacco Use Types Packs/Day Years Used Date Former Smoker Cigarettes 2 1.5 Quit: 1986 Alcohol Use Drinks/Week oz/Week Comments Yes sociable Sex Assigned at Date Recorded Not on file Job Start Date Occupation Industry Not on file Not on file Not on file Travel History Travel Start Travel End No recent travel history available. Last Filed Vital Signs Vital Sign Reading Time Taken Comments Blood Pressure 149/61 02/04/2020 3:54 PM CDT Pulse 67 02/04/2020 3:54 PM CDT Temperature 36.3 C (97.4 F) 02/04/2020 3:54 PM CDT Respiratory Rate 18 02/04/2020 3:54 PM CDT Oxygen Saturation 97% 02/04/2020 3:54 PM CDT Inhaled Oxygen Concentration - - Weight 93.8 kg (206 lb 14.4 oz) 02/04/2020 6:03 AM CDT Height 170.2 cm (5' 7") 01/31/2020 7:10 PM CDT Body Mass Index 32.41 01/31/2020 7:10 PM CDT Plan of Treatment Health Maintenance Due Date Last Done Comments DIABETIC RETINAL EYE EXAM 1945 DIABETIC FOOT EXAM 01/07/1954 URINE MICROALBUMIN 01/07/1954 COLONOSCOPY SCREENING 01/07/1994 SHINGLES VACCINES (#1) 01/07/1994 65+ PNEUMOCOCCAL VACCINE (1 of 2 - PCV13) 01/07/2009 INFLUENZA VACCINE 06/06/2020 Procedures Procedure Name Priority Date/Time Associated Comments Diagnosis POC GLUCOSE Routine 02/04/2020 11:29 Results for this AM CDT procedure are i n the results section. POC GLUCOSE Routine 02/04/2020 7:46 Results for this AM CDT procedure are i n the results section. ESTIMATED GFR Routine 02/04/2020 4:25 Results fo r this AM CDT procedure are i n the results section. PHOSPHORUS LEVEL Routine 02/04/2020 4:25 Results for this AM CDT procedure are i n the results section. MAGNESIUM LEVEL Routine 02/04/2020 4:25 Results for this AM CDT procedure are i n the results section. BASIC METABOLIC PANEL Routine 02/04/2020 4:25 Re sults for this AM CDT procedure are i n the results section. POC GLUCOSE Routine 02/03/2020 8:58 Results for this PM CDT procedure are i n the results section. POC GLUCOSE Routine 02/03/2020 5:21 Results for this PM CDT procedure are i n the results section. POC GLUCOSE Routine 02/03/2020 11:13 Results for this AM CDT procedure are i n the results section. POC GLUCOSE Routine 02/03/2020 8:13 Results for this AM CDT procedure are i n the results section. ESTIMATED GFR Routine 02/03/2020 5:25 Results fo r this AM CDT procedure are i n the results section. BASIC METABOLIC PANEL Routine 02/03/2020 5:25 Re sults for this AM CDT procedure are i n the results section. MAGNESIUM LEVEL Routine 02/03/2020 5:25 Results for this AM CDT procedure are i n the results section. PHOSPHORUS LEVEL Routine 02/03/2020 5:25 Results for this AM CDT procedure are i n the results section. HC COMPLETE BLD COUNT Routine 02/03/2020 4:00 Re sults for this W/AUTO DIFF AM CDT procedure are i n the results section. POC GLUCOSE Routine 02/02/2020 9:33 Results for this PM CDT procedure are i n the results section. POC GLUCOSE Routine 02/02/2020 6:47 Results for this PM CDT procedure are i n the results section. POC GLUCOSE Routine 02/02/2020 5:14 Results for this PM CDT procedure are i n the results section. POC GLUCOSE Routine 02/02/2020 12:11 Results for this PM CDT procedure are i n the results section. POC GLUCOSE Routine 02/02/2020 9:31 Results for this AM CDT procedure are i n the results section. ESTIMATED GFR Routine 02/02/2020 4:00 Results fo r this AM CDT procedure are i n the results section. PHOSPHORUS LEVEL Routine 02/02/2020 4:00 Results for this AM CDT procedure are i n the results section. MAGNESIUM LEVEL Routine 02/02/2020 4:00 Results for this AM CDT procedure are i n the results section. TOTAL IRON BINDING Routine 02/02/2020 4:00 Resul ts for this CAPACITY AM CDT procedure are i n the results section. FERRITIN LEVEL Routine 02/02/2020 4:00 Results f or this AM CDT procedure are i n the results section. BASIC METABOLIC PANEL Routine 02/02/2020 4:00 Re sults for this AM CDT procedure are i n the results section. HC COMPLETE BLD COUNT Routine 02/02/2020 3:30 Re sults for this W/AUTO DIFF AM CDT procedure are i n the results section. POC GLUCOSE Routine 02/01/2020 9:13 Results for this PM CDT procedure are i n the results section. POC GLUCOSE Routine 02/01/2020 5:14 Results for this PM CDT procedure are i n the results section. US RENAL Routine 02/01/2020 3:41 Results for this PM CDT procedure are i n the results section. CREATININE LEVEL, Routine 02/01/2020 2:00 Result s for this URINE, RANDOM PM CDT procedure are in the results section. PROTEIN, URINE, RANDOM Routine 02/01/2020 2:00 R esults for this PM CDT procedure are i n the results section. TTE COMPLETE, WO Routine 02/01/2020 12:19 Results for this CONTRAST, W DOPPLER PM CDT procedur e are in ([id number]) the results section. POC GLUCOSE Routine 02/01/2020 11:40 Results for this AM CDT procedure are i n the results section. POC GLUCOSE Routine 02/01/2020 7:34 Results for this AM CDT procedure are i n the results section. POC GLUCOSE Routine 02/01/2020 4:39 Results for this AM CDT procedure are i n the results section. MANUAL DIFFERENTIAL Routine 02/01/2020 3:44 Resu lts for this AM CDT procedure are i n the results section. ESTIMATED GFR Routine 02/01/2020 3:44 Results fo r this AM CDT procedure are i n the results section. T4, FREE Routine 02/01/2020 3:44 Results for this AM CDT procedure are i n the results section. THYROID STIMULATING Routine 02/01/2020 3:44 Resu lts for this HORMONE AM CDT procedure are i n the results section. HEMOGLOBIN A1C Routine 02/01/2020 3:44 Results f or this AM CDT procedure are i n the results section. LIPID PANEL Routine 02/01/2020 3:44 Results for this AM CDT procedure are i n the results section. BASIC METABOLIC PANEL Routine 02/01/2020 3:44 Re sults for this AM CDT procedure are i n the results section. CBC WITH PLATELET AND Routine 02/01/2020 3:44 Re sults for this DIFFERENTIAL AM CDT procedure are i n the results section. TROPONIN Timed 02/01/2020 1:45 Results for this AM CDT procedure are i n the results section. TROPONIN Timed 01/31/2020 9:24 Results for this PM CDT procedure are i n the results section. URINALYSIS SCREEN AND Routine 01/31/2020 9:10 Re sults for this MICROSCOPY, WITH REFLEX PM CDT proc edure are in TO CULTURE the results section. URINE CULTURE Routine 01/31/2020 9:00 Results fo r this PM CDT procedure are i n the results section. XR CHEST 1 VW PORTABLE STAT 01/31/2020 8:57 R esults for this PM CDT procedure are i n the results section. ECG 12-LEAD STAT 01/31/2020 8:04 Results for this PM CDT procedure are i n the results section. ECG ED PRELIMINARY Routine 01/31/2020 7:49 Resul ts for this INTERPRETATION PM CDT procedure are in the results section. D-DIMER STAT 01/31/2020 7:43 Results for this PM CDT procedure are i n the results section. ESTIMATED GFR STAT 01/31/2020 7:43 Results fo r this PM CDT procedure are i n the results section. PROTHROMBIN TIME WITH STAT 01/31/2020 7:43 Re sults for this INR PM CDT procedure are i n the results section. PARTIAL THROMBOPLASTIN STAT 01/31/2020 7:43 R esults for this TIME (PTT) PM CDT procedure are i n the results section. B NATRIURETIC PEPTIDE STAT 01/31/2020 7:43 Re sults for this PM CDT procedure are i n the results section. TROPONIN STAT 01/31/2020 7:43 Results for this PM CDT procedure are i n the results section. COMPREHENSIVE METABOLIC STAT 01/31/2020 7:43 Results for this PANEL PM CDT procedure are i n the results section. HC COMPLETE BLD COUNT STAT 01/31/2020 7:43 Re sults for this W/AUTO DIFF PM CDT procedure are i n the results section. after 04/29/2019 Results POC glucose (02/04/2020 11:29 AM CDT)Only the most recent of16 resultswithin the time period is included. Pathologist Sig nature POC glucose 182 (H) 65 - 99 mg/dL [facility] Comment: [facility] [employer] Worker Name: Phogn Neil Device ID: [id number] Chartable: [facility] Notified RN Specimen Blood Performing Organization Address City/[facility]/Zipcode Phone Number [facility] DEPARTMENT OF PATHOLOGY AND [address] [place] [phone] Estimated GFR (02/04/2020 4:25 AM CDT)Only the most recent of5 resultswithin the time period is included. Estimated GFR 15 (A) mL/min/1.73 [facility] Comment: HOSPITAL Catergory Units Interpretation G1 >=90 Normal or high G2 60-89 Mildly decreased G3a 45-59 Mildly to moderately decreas ed G3b 30-44 Moderately to severely decre ased G4 15-29 Severely decreased G5 <15 Kidney failure The eGFR was calculated using the Chronic Kidney Disea se Epidemiology Collaboration (CKD-EPI) equation. Interpretation is based on recommendations of the National Kidney Foundation-Kidney Disease Outcomes Darrel lity Initiative (NKF-KDOQI) published in 2014. Specimen Performing Organization Address City/[facility]/Zipcode Phone Number [facility] DEPARTMENT OF PATHOLOGY AND [address] [place] [phone] Phosphorus level (02/04/2020 4:25 AM CDT)Only the most recent of3 resultswithin the time period is included. Pathologist Sig nature Phosphorus 4.2 2.4 - 4.5 mg/dL [facility] L Specimen Blood Performing Organization Address City/[facility] Phone Number [facility] DEPARTMENT OF [facility]OLOG[facility] AND [address] [place] [address] [phone] [phone] Magnesium level (02/04/2020 4:25 AM CDT)Only the most recent of3 resultswithin the time period is included. Pathologist Sig nature Magnesium 1.6 1.6 - 2.4 mg/dL [facility] L Specimen Blood Performing Organization Address [facility] Phone Number [facility] DEPARTMENT OF PATHOLOGY AND [address] [place] [phone] Basic metabolic panel (02/04/2020 4:25 AM CDT)Only the most recent of4 results within the time period is included. Pathologist Sig nature Sodium 141 135 - 148 mEq/L [facility] [place] Potassium 4.3 3.5 - 5.0 mEq/L [facility] [place] Chloride 105 98 - 112 mEq/L [facility] [place] CO2 26 24 - 31 mEq/L [facility] [place] Anion gap 10@ANIO 7 - 15 mEq/L [facility] [place] [place] BUN 40 (H) 8 - 23 mg/dL [facility] [place] [place] Creatinine 3.71 (H) 0.70 - 1.20 mg/dL [facility] [place] [place] Glucose 96 65 - 99 mg/dL [facility] [place] Calcium 8.5 (L) 8.8 - 10.2 mg/dL [facility] Specimen Blood Performing Organization Address City/[facility] Phone Number [facility] DEPARTMENT OF [facility]OLOGY AND [address] [place] [address] [phone] [phone] CBC with platelet and differential (02/03/2020 4:00 AM CDT)Only the most recent of4 resultswithin the time period is included. WBC 4.46 (L) 4.50 - 11.00 [facility] RBC 3.12 (L) 4.40 - 6.00 [facility] m/uL [facility] HGB 9.0 (L) 14.0 - 18.0 [facility] g/dL HOSPITAL HCT 28.6 (L) 41.0 - 51.0 % [facility] [place] MCV 91.7 82.0 - 100.0 [facility] MCH 28.8 27.0 - 34.[address] [facility] [place] MCHC 31.5 31.0 - 37.0 [facility] g/dL HOSPITAL RDW - SD 48.0 37.0 - 55.0 [facility] MPV 11.5 8.8 - 13.2 [facility] Platelet count 146 (L) 150 - 400 k/uL [facility] [place] Nucleated RBC 0.00 /[address] [facility] [place] Neutrophils 46.5 39.0 - 69.0 % [facility] [place] Lymphocytes 40.6 25.0 - 45.0 % [facility] [place] Monocytes 8.3 0.0 - 10.0 % [facility] [place] Eosinophils 4.0 0.0 - 5.0 % [facility] [place] Basophils 0.4 0.0 - 1.0 % [facility] [place] Immature granulocytes 0.2Comment: 0.0 - 1.0 % [facility] "[facility] granulocytes" (promyelocytes , myelocytes, metamyelocytes ) Specimen Performing Organization Address City/State/Zipcode Phone Number [facility] DEPARTMENT OF PATHOLOGY AND [address] [place] [address] [phone] [address] Total iron binding capacity (02/02/2020 4:00 AM CDT) Pathologist Sig nature Iron level 56 (L) 59 - 158 ug/dL [facility] [place] Iron binding capacity 170 (L) 200 - 400 ug/dL [facility] % Saturation 32.9 20.0 - 40.0 % [facility] [place] Specimen Blood Performing Organization Address City/State/Zipcode Phone Number [facility] DEPARTMENT OF PATHOLOGY AND [address] [place] [address] [phone] [address] Ferritin level (02/02/2020 4:00 AM CDT) Pathologist Sig nature Ferritin level 197 30 - 400 ng/mL [facility] Specimen Blood Performing Organization Address City/State/Zipcode Phone Number [facility] DEPARTMENT OF PATHOLOGY AND [address] [place] [phone] [facility] [place] [address] [place] [phone] [place] Renal (02/01/2020 3:41 PM CDT) Specimen Narrative Performed At [facility]AMIN[facility]: Renal failure acute (kidney inju ry), Renal failure chronic (kidney disease) COMPARISON: None available. FINDINGS: The kidneys are normal in size and echogenicity. There is no evidence of renal mass, calculi, or hydronephrosis. The right kidney measures 11.5 x 6.1 x 5.4 cm. The rig ht renal parenchymal width measures [address] ructures are present likely representing simple cysts, the largest of which measures 2.4 x 2.0 x 2.1 cm. The left kidney measures 11.2 x 5.8 x 5.6 cm. The left renal parenchymal width measures 15 mm. The urinary bladder is unremarkable. IMPRESSION: No acute sonographic renal abnormality. [facility]-[id number] Procedure Note Interface, Radiology Results Incoming - 02/01/2020 3:50 PM CDT EXAMINATION: US RENAL CLINICAL HISTORY: Renal failure acute (kidney injury), Renal failure chronic (kidney disease) COMPARISON: None available. FINDINGS: The kidneys are normal in size and echog enicity. There is no evidence of renal mass, calculi, or hydronephrosis. The right kidney measures 11.5 x 6.1 x 5 .4 cm. The right renal parenchymal width measures 15 mm. Multiple anechoic structures are present likely representing simple cysts, the largest of which measures 2.4 x 2.0 x 2.1 cm. The left kidney measures 11.2 x 5.8 x 5. 6 cm. The left renal parenchymal width measures 15 mm. The urinary bladder is unremarkable. IMPRESSION: No acute sonographic renal abnormality. [facility]-[id number] Performing Organization Address City/State/Zipcode Phone Number [facility] [address] [place] [address] Protein, urine, random (02/01/2020 2:00 PM CDT) Pathologist Sig nature Protein, urine random 465 mg/dL [facility] [place] Specimen Urine Performing Organization Address City/State/Zipcode Phone Number [facility] DEPARTMENT OF PATHOLOGY AND [address] [place], [place] [phone] [facility] [address] [phone] Creatinine level, urine, random (02/01/2020 2:00 PM CDT) Pathologist Forrest meyer Creatinine, urine, 44 mg/dL [facility] Specimen Urine Performing Organization Address City/State/Zipcode Phone Number [facility] DEPARTMENT OF PATHOLOGY AND [address] [place], [place] [phone] [address] [facility] [address] [place] [address] Transthoracic Echocardiogram Complete, (w Contrast, Strain and 3D if needed) (02/01/2020 12:19 PM CDT) Specimen Narrative Performed At [facility] Echo cardiography Report [id number] [facility] [address] [address] Pat.Name: MACRINA CLARK Pat.ID: [id number] .Date: 02/01/2020 Refer.MD: BRANDON HUGHES MD Exam Time: 11:44:00 AM Study Type:Ro utine Echo Height: 67in Weight: 226lb BSA: 2.13 m2 Ag e: 1945,75Y Sex: MALE BP: 172/70 HR: 58 bpm Sonogr phr: Anum Fernández RDCS Pat. Stat.:Inpatient Room: A0846 Study Status:Final Echo Event ID:[id number] Order ID: [id number] Reason for Study:Chest pain, cardiac crista ology suspected Procedures: 2D Echo, Colorflow Doppler, Strain, Portable Race: C SUMMARY: Normal biventricular systolic function. Elevated LV filling pressure and RAP. Findings consistent with HFpEF. Clinical correlation required. FINDINGS: LV: LV size is normal. There is mild concentric LV hypertrophy. Normal average LV global longitudinal s train at -22%. LV EF is normal. Overall wall m otion is normal. Estimated EF is 60-64%. RV: RV size is normal. RV systo lic function is normal. LA: LA volume is moderately enl arged. RA: RA size is normal. AO: Aortic root diameter is nor mal. BRAULIO: No pericardial effusion. SVn: Inferior vena cava is dilat ed. Minimal collapse of IVC during inspiration is consistent with e levated RA pressure. AV: Tri cuspid aortic valve. MV: No structural MV abnormalit ies noted. PV: No structural PV abnormalit ies noted. TV: No structural TV abnormalit ies noted. Ferrer: Diastolic dysfunction Grade II (Moderate): Impaired relaxation with elevated LV filling pressures. Other: Insufficient TR jet to estim ate PA systolic pressure. MEASUREMENTS: 2D Parasternal Long [place] Ao Rtd 3.8 cm Index 1.8 cm/m2 RWT 0.49 IVSd 1.1 cm LV Mass 254 g (122-1 74) LVIDd 5.3 cm Index 2.5 cm/m2 LVM Index 119 g/m LVPWd 1.3 cm LA Sng Plane LA Area 28 cm (8.8-23.4) LA Vol 91 ml Index 43 ml/m2 LA LngAx 6.9 cm Signed 02/01/2020 03:05 PM Marques Arcos M.D. Procedure Note Interface, Radiology Results In - 2019 3:07 PM CDT Echocardiography Report [id number] [address] Pat.Name: MACRINA CLARK Pat.I D: [id number] .Date: 02/01/2020 Refer.MD: BRANDON HUGHES MD Exam Time: 11:44:00 AM Study Type:Routine Echo Height: 67in Weigh t: 226lb BSA: 2.13 m2 Age: 2 1945,75Y Sex: MALE BP: 172/70 HR: 58 bpm Sonog rphr: Anum Fernández RDCS Pat. Stat.:Inpatient Room: A0846 Study Status:Final Echo Event ID:[id number] Order ID: [id number] Reason for Study:Chest pain, cardiac crista ology suspected Procedures: 2D Echo, Colorflow Doppler, Strain, Portable Race: C SUMMARY: Normal biventricular systolic function. Elevated LV filling pressure and RAP. Findings consistent with HFpEF. Clinical correlation required. FINDINGS: LV: LV size is normal. There is mi ld concentric LV hypertrophy. Normal average LV global longi tudinal strain at -22%. LV EF is normal. Overall wall motion is normal. Estimated EF is 60-64%. RV: RV size is normal. RV systolic function is normal. LA: LA volume is moderately enlarg ed. RA: RA size is normal. AO: Aortic root diameter is normal . BRAULIO: No pericardial effusion. SVn: Inferior vena cava is dilated. Minimal collapse of IVC during inspiration is consiste nt with elevated RA pressure. AV: Tri cuspid aortic valve. MV: No structural MV abnormalities noted. PV: No structural PV abnormalities noted. TV: No structural TV abnormalities noted. Ferrer: Diastolic dysfunction Grade II (Moderate): Impaired relaxation with elevated LV fi lling pressures. Other: Insufficient TR jet to estimat e PA systolic pressure. MEASUREMENTS: 2D Parasternal [place] Ao Rtd 3.8 cm Inde x 1.8 cm/m2 RWT 0.49 IVSd 1.1 cm LV Mass 254 g (122-174) LVIDd 5.3 cm Inde x 2.5 cm/m2 LVM Index 119 g/m LVPWd 1.3 cm LA Sng Plane LA Area 28 cm (8.8-23.4) L A Vol 91 ml Index 43 ml/m2 LA LngAx 6.9 cm Signed 02/01/2020 03:05 PM Marques Arcos M.D. Performing Organization Address City/[facility]/Zipcode Phone Number [facility] [address] [place] [address] Manual differential (02/01/2020 3:44 AM CDT) Manual differential PERFORMED [facility] [place] Neutrophils 53.0 39.0 - 69.0 % [facility] [place] [place] Lymphocytes 42.0 25.0 - 45.0 % [facility] [place] Monocytes 2.0 0.0 - 10.0 % [facility] [place] [place] Eosinophils 3.0 0.0 - 5.0 % [facility] Basophils 0.0 0.0 - 1.0 % [facility] [place] [place] Metamyelocytes 0 % [facility] [place] [place] Promyelocytes 0 % [facility] [place] [place] Platelet slide review Elke slt decr [facility] Anisocytosis Moderate [facility] Enlarged platelets Moderate (A) [facility] [place] Specimen Performing Organization Address City/[facility]/Zipcode Phone Number [facility] DEPARTMENT OF PATHOLOGY AND [address] [place] [address] [phone] [address] Thyroid stimulating hormone (02/01/2020 3:44 AM CDT) Pathologist Sig nature TSH 5.93 (H) 0.27 - 4.20 uIU/mL [facility] [place] Specimen Blood Performing Organization Address [facility]/Zipcode Phone Number [facility] DEPARTMENT OF PATHOLOGY AND [address] [place] [address] [phone] [address] T4, free (02/01/2020 3:44 AM CDT) Pathologist Sig nature T4, free 1.0 0.9 - 1.7 ng/dL [facility] L Specimen Blood Performing Organization Address City/State/Zipcode Phone Number [facility] DEPARTMENT OF PATHOLOGY AND [address] [place] [address] [phone] [address] Hemoglobin A1c (02/01/2020 3:44 AM CDT) Hemoglobin A1C 7.5 (H) 4.0 - 5.6 % [facility] Comment: HOSPITAL HbA1c cutoffs for diagnosing diabetes: 4.0% - 5.6% = normal 5.7% - 6.4% = increased risk for diabetes (prediabetes )9 >=6.5% = diabetes9 Goals for glycemic control (ADA 2016) < 7.0% Target for non adults with diabetes. More or less stringent targets may be appropriate for individual patients. <7.5% Target for Children and adolescents with type 1 diabetes. Specimen Blood Performing Organization Address City/State/Zipcode Phone Number [facility] DEPARTMENT OF PATHOLOGY AND [address] [place] [address] [phone] [address] Lipid panel (02/01/2020 3:44 AM CDT) Cholesterol 105 <200 mg/dL [facility] [place] Triglycerides 125 <150 mg/dL [facility] [place] HDL cholesterol 34 (L) >40 mg/dL [facility] [place] LDL cholesterol 57Comment: Result <100 mg/dL [place] obtained by direct [facility]IAN LDL measurement [facility] Comment: [facility] Total Cholesterol (mg/dL) HOSPIT [place] <200 Desirable 200-239 Borderline-high >=240 High Triglycerides (mg/dL) <150 Normal 150-199 Borderline-high 200-499 High >=500 Very high HDL Cholesterol (mg/dL) <40 Low (male) <40 Low (female) LDL Cholesterol (mg/dL) <100 Optimal 100-129 Near or above optimal 130-159 Borderline-high 160-189 High >=190 Very high Risk Catergories that modify LDL goals. Risk Catergories LDL goal (mg/d L) CHD and CHD risk equivalent <100 (10-year risk >20%) Multiple (2+) risk factors <130 (10-year risk =<20%) 0-1 risk factors <160 (<10-year risk) Defining levels of lipids in metabolic syndrome Triglycerides >=150 mg/dL HDL Cholesterol Men <40 mg /dL Women <40 mg/ dL Non-HDL cholesterol is a second target for therapy in persons with high triglycerides (>=200 mg/dL) Specimen Blood Performing Organization Address [facility] Phone Number [facility] DEPARTMENT OF [facility]OLOGY AND [address] [place], [place] [phone] GENOMIC MEDICINE [address] [address] Troponin (02/01/2020 1:45 AM CDT)Only the most recent of3 resultswithin the time period is included. Troponin 0.019 0.000 - 0.040 [facility] Comment: ng/mL HOSPITAL In patients suspected of having a myocardial infarctio n, along with all other appropriate clinical measures and actions includ ing ECG and other diagnostics as appropriate, measure Ultra TnI at 0 hrs and at 3 hrs. Myocardial infarction VERY LIKELY The 0 hr TnI level is > 0.10 ng/mL Myocardial infarction LIKELY The 0 hr TnI level is > 0.04 ng/mL and 3 hr level is i ncreased or decreased by at least 0.020 ng/mL Myocardial infarction VERY UNLIKELY Both the 0 hr and 3 hr TnI levels <= 0.04 ng/mL(within normal limits) OR 0 hr is > 0.04 ng/mL and 3 hr is increased OR decreased by less than 0.020 ng/mL Specimen Blood Performing Organization Address City/[facility] Phone Number [facility] DEPARTMENT OF PATHOLOGY AND [address] [place], [place] [phone] [address] Urinalysis screen and microscopy, with reflex to culture (01/31/2020 9:10 PM CDT) Specimen site Clean catch [facility] Color, UA Yellow [facility] Appearance, UA Clear [facility] Specific gravity, UA 1.015 1.001 - 1.[address] [facility] pH, UA 7.0 5.0 - 8.[address] [facility] [place] Protein, UA 3+ (A) Negative [facility] Glucose, UA 3+ (A) Negative [facility] Ketones, UA Negative Negative [facility] Bilirubin, UA Negative Negative [facility] Blood, UA Negative Negative [facility] Nitrite, UA Negative Negative [facility] Urobilinogen, UA <2.0 <2.[address] [facility] [place] Leukocyte esterase, Negative Negative [facility] Epithelial cells, UA <1 /HPF [facility] [place] WBC, UA 3 (H) 0 - 1 /HPF [facility] RBC, UA 1 0 - 5 /HPF [facility] [place] Bacteria, UA None seen None seen [facility] Yeast, UA None seen [facility] Yeast with None seen [facility] pseudohyphae, [facility] Hyaline casts, UA 10 /LPF [facility] Specimen Urine Performing Organization Address City/[facility]/Zipcode Phone Number [facility] DEPARTMENT OF PATHOLOGY AND [address] [place] [address] [phone] [address] Urine culture (01/31/2020 9:00 PM CDT) Pathologist Sig nature Urine culture SEE COMMENTComment: [facility] Bacteriuria screen HOSPITAL negative. Specimen Performing Organization Address City/[facility]/Zipcode Phone Number [facility] DEPARTMENT OF PATHOLOGY AND [address] [place] [address] [phone] [address] XR Chest 1 Vw Portable (01/31/2020 8:57 PM CDT) Specimen Narrative Performed At EXAMINATION: XR CHEST 1 VW PORTABLE [facility] CLINICAL HISTORY: 75 years Male edema COMPARISON: 01/22/2017 IMPRESSION: 1.The heart size is normal. The aorta is atherosclerotic. 2.Mild central pulmonary vascular conges tion. 3.Minimal bibasilar atelectasis with tin y pleural effusions. [facility]-[id number] Procedure Note Hm Interface, Radiology Results Incoming - 01/31/2020 9:02 PM CDT EXAMINATION: XR CHEST 1 VW PORTABLE CLINICAL HISTORY: 75 years Male edema COMPARISON: 01/22/2017 IMPRESSION: 1.The heart size is normal. The aorta is atherosclerotic. 2.Mild central pulmonary vascular conges tion. 3.Minimal bibasilar atelectasis with tin y pleural effusions. [facility]-[id number] Performing Organization Address [facility] Phone Number [facility] [address] [place] [address] ECG 12 lead (01/31/2020 8:04 PM CDT) Pathologist Sig nature Ventricular rate 56 [facility] Atrial rate 56 [facility] [place] interval 164 [facility] QRSD interval 82 [facility] QT interval 446 [facility] QTC interval 430 [facility] P axis 1 28 [facility] QRS axis 1 11 [facility] T wave axis 30 [facility] EKG impression Sinus [facility] bradycardia-Otherwise normal ECG-- Specimen Narrative Performed At This result has an attachment that is no t available. Performing Organization Address [facility] Phone Number [facility] MUSE [address] [place] [address] ECG ED Preliminary Interpretation - Not an Order (01/31/2020 7:49 PM CDT) Narrative Performed At Yohannes Power MD 02/03/2020 7 :50 AM ECG ED Preliminary Interpretation - Not an Order Performed by: Yohannes Power MD Authorized by: Yohannes Power MD ECG reviewed by ED Physician in the abse nce of a warehouse assistant: yes Interpretation: Interpretation: abnormal Rate: ECG rate: 56 ECG rate assessment: bradycardic Rhythm: Rhythm: sinus bradycardia Ectopy: Ectopy: none QRS: QRS axis: Normal QRS intervals: Normal Conduction: Conduction: normal ST segments: ST segments: Normal T waves: T waves: normal Partial thromboplastin time, activated (01/31/2020 7:43 PM CDT) PTT 31.7 23.0 - 36.0 [facility] Comment: [facility] PTT therapeutic range for unfractionated heparin is 61.0-112.0 seconds which corresponds to Anti-Xa 0.3-0.7 U/ml. Specimen Blood Performing Organization Address City/State/Zipcode Phone Number [facility] DEPARTMENT OF PATHOLOGY AND [address] [place] [address] [phone] [address] Prothrombin time with INR (01/31/2020 7:43 PM CDT) [facility] Prothrombin time 14.9 (H) 11.5 - 14.5 [facility] INR 1.2 [place] Comment: [facility] International Normalized Ratio (INR) is a therapeu [facility] HOSPITAL monitoring tool for patients who are stable on oral anticoagulant therapy. An INR of 2.0-3.0 is suggested for deep vein thrombosis/pulmonary embolism. Specimen Blood Performing Organization Address [facility] Phone Number [facility] DEPARTMENT OF PATHOLOGY AND [address] [place] [address] D-dimer (01/31/2020 7:43 PM CDT) [facility] D-dimer 1.30 (H) 0.00 - 0.40 [facility] Comment: ug/mL [facility] HOSPITAL Units are ug/ml Fibrinogen Equivalent Unit. When combined with low clinical probability, D-dimer r esults of less than 0.5 ug/ml FEU have a good negative pred ictive value in excluding PE or DVT. For D-dimer results greater than 0.5 ug/ml FEU [facility] er testing is indicated if PE or DVT is suspected clini nasir. Elevated D-dimer results have been reported in DVT, PE , and DIC cases and may indicate the presence of a clot. D-dimer results may be elevated due to old age, pregna ncy, inflammatory diseases, trauma, post-operative states, sepsis, and malignancies. Specimen Blood Performing Organization Address City/State/Zipcode Phone Number [facility] DEPARTMENT OF PATHOLOGY AND [address] [place] [address] [phone] [address] B natriuretic peptide (01/31/2020 7:43 PM CDT) Pathologist Sig nature BNP 538 (H) 0 - 100 pg/mL [facility] Specimen Blood Performing Organization Address City/[facility]/Zipcode Phone Number [facility] DEPARTMENT OF PATHOLOGY AND [address] [place], [place] [address] [facility] [address] [place] [address] Comprehensive metabolic panel (01/31/2020 7:43 PM CDT) Sodium 141 135 - 148 [facility] mEq/L [facility] Potassium 5.3 (H) 3.5 - 5.0 [facility] mEq/L [facility] Chloride 114 (H) 98 - 112 [facility] mEq/L [facility] CO2 22 (L) 24 - 31 mEq/L [facility] Anion gap 5@ANIO (L) 7 - 15 mEq/L [facility] BUN 37 (H) 8 - 23 mg/dL [facility] Creatinine 3.78 (H) 0.70 - 1.20 [facility] mg/dL [facility] Glucose 193 (H) 65 - 99 mg/dL [facility] Calcium 8.7 (L) 8.8 - 10.2 [facility] mg/dL [facility] Protein 6.0 (L) 6.3 - 8.3 [facility] Comment: g/dL HOSPITAL - 4.6-7.0 g/dL 1 week 4.4-7.6 g/dL 7 months-1year 5.1-7.3 g/dL 1-2 years 5.6-7.5 g/dL >3 years 6.0-8.0 g/dL 18-150 6.3-8.3 g/dL Albumin 2.4 (L) 3.5 - 5.0 [facility] g/dL [facility] A/G ratio 0.7 0.7 - 3.[address] [facility] Alkaline phosphatase 99 40 - 129 U/L [facility] AST 27 10 - 50 U/L [facility] ALT 20 5 - 50 U/L [facility] [place] Total bilirubin 0.4 0.0 - 1.2 [facility] mg/dL [facility] Specimen Blood Performing Organization Address City/[facility]/Zipcode Phone Number [facility] DEPARTMENT OF PATHOLOGY AND [address] [place], [place] [address] 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
--- OUTSIDE RECORDS SUMMARY | 2020-04-29 08:04 | XMS REPORT | Continuity of Care Document ---
:1945 Author Organization [facility] t Address [address] [place] [address] Care Team Providers Name Role Phone Asked, No Pcp Primary Care Physician Unavailable Bran IZQUIERDO Attending Clinician Unavailable Tono ECHOLS Attending Clinician Ellne ECHOLS, O. Attending Clinician ELLEN Admitting Clinician Unavailable Payers Payer Name Policy Policy Number Effective Expiration Source Type Date Date BCBSBCBS CHOICE xxxxxxxxxxxx 2008 [facility] PPO/FEDERAL EMPL 00:00:00 Methodis t PPOxxxxxxxxxxxx2[facility] xxxxxxxxxxx 2011 Tiburcio jamil A AND 00:00:00 Faith Bxxxxxxxxxxx2011- [place], [place] Condition Condition Condition Status Onset Resolution Last Treating Co mments Source Name Details Category Date Date Treatment Clinician Date Acute Acute Disease Active [facility] systolic systolic 01-30 Method i congestive congestive 00:00: st heart heart 00 failure failure Chest pain Chest pain Disease Active [place] - Method[facility] 00:00: st 00 Coronary Coronary Disease Active [place] artery artery 01-22 [facility] disease disease 00:00: st involving involving 00 kotlik kotlik coronary coronary artery artery Type 2 Type 2 Disease Active [facility] diabetes diabetes 3- Method i mellitus mellitus 00:00: st 00 Essential Essential Disease Active [facility] [facility] hypertensi hypertensi 01-22 Me thodi on on 00:00: st 00 Allergies, Adverse Reactions, Alerts This patient has no known allergies or adverse reactions. Family History Family Member Diagnosis Comments Start Date Stop Date Source Natural father Diabetes [facility] thodist Social History Social Habit Start Date Stop Date Quantity Comments Source History of tobacco Current smoker Tiburcio jamil Faith use Sex Assigned At [facility] ethodist Cigarettes smoked 2017-01-23 2017-01-23 [facility] Faith current (pack per 00:00:00 00:00:00 day) - Reported Cigarette 2017-01-23 2017-01-23 [facility] Method ist pack-years 00:00:00 00:00:00 Alcohol intake 2017-01-23 2017-01-23 Current drinker [place] [facility] 00:00:00 00:00:00 of alcohol (finding) Alcohol Comment 2017-01-22 2017-01-22 sociable [facility] ethodist 00:00:00 00:00:00 Smoking Status Start Date Stop Date Source Former smoker 2017-01-23 00:00:00 2017-01-23 00:00:00 [facility] Faith Medications Ordered Filled Start Stop Current Ordering Indication Dosage Frequency Signature Comments Components Source Medication Medication Date Date Medication? Clinician (SIG) Name Name NIFEdipine 2019-0 2020- No 90mg QD Take 1 [place] XL 02-04 tablet (90 Method[facility] (PROCARDIA 00:00: 23:59 mg total) s t XL) 90 MG 00 :00 by mouth 24 hr daily for tablet 30 days. metFORMIN 2019-0 2020- No 1000mg Q.5D Take 1,000 [place] (GLUCOPHAGE 02-03-31 mg by Method i ) 500 mg 16:44: 00:[address] tablet 41 :00 (two) times a day with meals. amLODIPine 2019-0 2020- No 5mg QD Take 5 mg [place] (NORVASC) 5 02-03 by mouth Met hodi mg tablet 16:44: 00:[address] 41 :00 olmesartan 2019-0 2020- No 40mg QD Take 40 mg [facility] (BENICAR) 02-03 by mouth Metho di 40 MG 16:44: 00:[address] tablet 41 :00 hydrALAZINE 2019-0 2020- No 100mg Q.5D Take 100 [facility] (APRESOLINE 02-03-31 mg by Method i ) 50 MG 16:44: 00:[address] tablet 41 :00 (two) times a day. insulin 2020-0 2020- No 28U QD Inject 28 [place] GLARGINE 02-03-31 Units Methodi (LANTUS) 16:44: 00:[address] 100 unit/mL 41 :00 skin injection daily. (vial) NIFEdipine 2020-0 2020- No 30mg QD Take 30 mg [place] XL 02-03 by mouth Methodi (PROCARDIA 16:44: 00:[address] XL) 30 MG 41 :00 24 hr tablet spironolact 2020-0 2020- No 25mg QD Take 25 mg [facility] one 02-03 by mouth [facility] (ALDACTONE) 16:44: 00:[address] 25 MG 41 :00 tablet cholecalcif 2020-0 2020- No 2000U QD Take 2,000 [place] nasir, 02-03 Units by Methodi vitamin D3, 16:44: 00:[address] 50 mcg 41 :00 daily. (2,000 unit) capsule capsule chlorthalid 2020-0 Yes 25mg QD Take 25 mg [place] one 02-03 by mouth [facility] (HYGROTEN) 16:44: daily. st 25 MG 40 tablet repaglinide 2020-0 Yes 1mg Q.[id number] Take 1 mg [place] (PRANDIN) 1 02-03 [id number] by mouth 3 Methodi MG tablet 16:44: 3D (three) st 40 times a day before meals. atorvastati 2020-0 Yes 40mg QD Take 40 mg [place] n (LIPITOR) - by mouth Meth tiffanie 40 MG 16:44: daily. st tablet 40 clopidogrel 2020-0 Yes 75mg QD Take 75 mg [facility] (PLAVIX) 75 3-31 by mouth Meth tiffanie mg tablet 16:44: daily. st 40 famotidine 2020-0 Yes 20mg Q.5D Take 20 mg [place] (PEPCID) 20 3-31 by mouth 2 Me thodi MG tablet 16:44: (two) st 40 times a day as needed for indigestio n or heartburn. omega-3 2020-0 Yes 1g Q.5D Take 1 g [place] acid ethyl -31 by mouth 2 Met hodi esters 16:44: (two) st (LOVAZA) 1 40 times a gram day. capsule nebivolol 2020-0 Yes 5mg QD Take 5 mg [place] (BYSTOLIC) 3-31 by mouth Metho di 5 MG tablet 16:44: daily. st 40 aspirin 2020-0 Yes 81mg QD Take 81 mg [place] (ECOTRIN) 3-31 by mouth Method i 81 MG 16:44: daily. st enteric 40 coated tablet nitroglycer 2020-[address] 0.4 [place] in 3-31 mg under Method[facility] (NITROSTAT) 16:44: the tongue st 0.4 MG SL 40 every 5 tablet (five) minutes as needed for chest pain. sodium 2020-0 Yes 1{spray 1 spray [place] chloride 3-31 } into each Method i (OCEAN) 16:44: nostril as st 0.65 % 40 needed for nasal spray rhinitis. multivitami 2020-0 Yes 1{tbl} QD Take 1 [place] with 3-31 tablet by Methodi minerals 16:44: mouth st tablet 40 daily. tamsulosin 2020-0 Yes .4mg QD Take 0.4 [place] (FLOMAX) 3-31 mg by Methodi 0.4 mg 16:44: mouth st capsule 40 daily with dinner. pantoprazol 2020-0 Yes 40mg Q.5D Take 40 mg [place] e 3-31 by mouth 2 Method[facility] (PROTONIX) 16:44: (two) st 40 MG EC 40 times a tablet day. hydrALAZINE 2020-0 2020- No 50mg Q8H Take 1 [place] (APRESOLINE 3-31 04-30 tablet (50 M ethodi ) 50 MG 00:00: 23:59 mg total) st tablet 00 :00 by mouth every 8 (eight) hours for 30 days. finasteride 2020-0 2020- No 5mg QD Take 1 [place] (PROSCAR) 5 3-31 04-30 tablet (5 Me thodi mg tablet 00:00: 23:59 mg total) st 00 :00 by mouth nightly for 30 days. furosemide 2020-0 2020- No 40mg Q.5D Take 1 [place] (Lasix) 40 3-31 04-30 tablet (40 Me thodi mg tablet 00:00: 23:59 mg total) st 00 :00 by mouth 2 (two) times a day for 30 days. Vital Signs Vital Name Observation Time Observation Value Comments Source Systolic blood 2020-02-04 15:54:39 149 mm[Hg] [place] n Faith pressure Diastolic blood 2020-02-04 15:54:39 61 mm[Hg] [place] [facility] pressure Heart rate 2020-02-04 15:54:39 67 /min Akbar Gan Body temperature 2020-02-04 15:54:39 36.33 Vanessa [place] [facility] Respiratory rate 2020-02-04 15:54:39 18 /min [place] [facility] Oxygen saturation in 2020-02-04 15:54:39 97 /min Akbar Gan Arterial blood by Pulse oximetry Body weight 2020-02-04 06:03:00 93.849 kg Akbar Gan BMI 2020-02-04 06:03:00 32.41 kg/m2 Akbar Gan Body height 2020-01-31 19:10:00 170.2 cm Akbar Gan Procedures Procedure Date / Time Performing Clinician Source Performed POC GLUCOSE 2020-02-04 11:29:00 Brandon Hughes POC GLUCOSE 2020-02-04 07:46:00 Brandon Hughes BASIC METABOLIC PANEL 2020-02-04 04:25:00 Gerardo Russell Kimo MAGNESIUM LEVEL 2020-02-04 04:25:00 Gerardo Russell ethodist Kimo PHOSPHORUS LEVEL 2020-02-04 04:25:00 Gerardo Russell Kimo ESTIMATED GFR 2020-02-04 04:25:00 Gerardo Russell ethodist Kimo POC GLUCOSE 2020-02-03 20:58:00 Brandon Hughes POC GLUCOSE 2020-02-03 17:21:00 Brandon Hughes POC GLUCOSE 2020-02-03 11:13:00 Brandon Hughes POC GLUCOSE 2020-02-03 08:13:00 Brandon Hughes PHOSPHORUS LEVEL 2020-02-03 05:25:00 Brandon Hughes MAGNESIUM LEVEL 2020-02-03 05:25:00 Brandon Hughes BASIC METABOLIC PANEL 2020-02-03 05:25:00 Brandon Hughes ESTIMATED GFR 2020-02-03 05:25:00 Brandon Hughes HC COMPLETE BLD COUNT 2020-02-03 04:00:00 Brandon Hughes W/AUTO DIFF POC GLUCOSE 2020-02-02 21:33:00 Brandon Hughes POC GLUCOSE 2020-02-02 18:47:00 Brandon Hughes POC GLUCOSE 2020-02-02 17:14:00 Brandon Hughes POC GLUCOSE 2020-02-02 12:11:00 Brandon Hughes POC GLUCOSE 2020-02-02 09:31:00 Brandon Hughes BASIC METABOLIC PANEL 2020-02-02 04:00:00 Brandon Hughes FERRITIN LEVEL 2020-02-02 04:00:00 Gerardo Russell ethodist Kimo TOTAL IRON BINDING 2020-02-02 04:00:00 Gerardo Russell CAPACITY Kimo MAGNESIUM LEVEL 2020-02-02 04:00:00 Gerardo Russell ethodist Kimo PHOSPHORUS LEVEL 2020-02-02 04:00:00 Gerardo Russell Kimo ESTIMATED GFR 2020-02-02 04:00:00 Brandon Hughes HC COMPLETE BLD COUNT 2020-02-02 03:30:00 Brandon Hughes W/AUTO DIFF POC GLUCOSE 2020-02-01 21:13:00 Brandon Hughes POC GLUCOSE 2020-02-01 17:14:00 Brandon Hughes US RENAL 2020-02-01 15:41:55 Gerardo Russell ethodist Kimo PROTEIN, URINE, RANDOM 2020-02-01 14:00:00 Gerardo Russell Kimo CREATININE LEVEL, URINE, 2020-02-01 14:00:00 Gerardo Russell RANDOM Kimo TTE COMPLETE, WO CONTRAST, 2020-02-01 12:19:08 Brandon Hughes W DOPPLER ([id number]) POC GLUCOSE 2020-02-01 11:40:00 Brandon Hughes POC GLUCOSE 2020-02-01 07:34:00 Brandon Hughes POC GLUCOSE 2020-02-01 04:39:00 Brandon Hughes CBC WITH PLATELET AND 2020-02-01 03:44:00 Brandon Hughes DIFFERENTIAL BASIC METABOLIC PANEL 2020-02-01 03:44:00 Brandon Hughes LIPID PANEL 2020-02-01 03:44:00 Brandon Hughes HEMOGLOBIN A1C 2020-02-01 03:44:00 Brandon Hughes THYROID STIMULATING 2020-02-01 03:44:00 Brandon Hughes HORMONE T4, FREE 2020-02-01 03:44:00 Brandon Hughes ESTIMATED GFR 2020-02-01 03:44:00 Brandon Hughes MANUAL DIFFERENTIAL 2020-02-01 03:44:00 Brandon Hughes TROPONIN 2020-02-01 01:45:00 [facility]odist TROPONIN 2020-01-31 21:24:00 [facility] URINALYSIS SCREEN AND 2020-01-31 21:10:00 Yohann[facility] on [facility] MICROSCOPY, WITH REFLEX TO CULTURE URINE CULTURE 2020-01-31 21:00:00 [facility] hodist XR CHEST 1 VW PORTABLE 2020-01-31 20:57:35 Y[facility]ann[facility] Faith ECG 12-LEAD 2020-01-31 20:04:24 [facility]ist ECG ED PRELIMINARY 2020-01-31 19:49:26 Yohann[facility] INTERPRETATION HC COMPLETE BLD COUNT 2020-01-31 19:43:00 Yohannes [facility] on Faith W/AUTO DIFF COMPREHENSIVE METABOLIC 2020-01-31 19:43:00 [facility] PANEL TROPONIN 2020-01-31 19:43:00 [facility] B NATRIURETIC PEPTIDE 2020-01-31 19:43:00 Yohannes [facility] on [facility] PARTIAL THROMBOPLASTIN 2020-01-31 19:43:00 Yohannes Power Faith TIME (PTT) PROTHROMBIN TIME WITH INR 2020-01-31 19:43:00 Yohannes [facility] ESTIMATED GFR 2020-01-31 19:43:00 Y[facility]ann[facility]odist D-DIMER 2020-01-31 19:43:00 PowerYohannes starr Met hodist Plan of Care Planned Activity Planned Date Details Comments Source Future Scheduled 2020-06-06 INFLUENZA VACCINE [place] [facility] Test 00:00:00 [code = INFLUENZA VACCINE] Future Scheduled 2009-01-07 65+ PNEUMOCOCCAL [facility] Test 00:00:00 VACCINE (1 of 2 - PCV13) [code = 65+ PNEUMOCOCCAL VACCINE (1 of 2 - PCV13)] Future Scheduled 1994-01-07 COLONOSCOPY SCREENING [facility] [place] [facility] Test 00:00:00 [code = COLONOSCOPY SCREENING] Future Scheduled 1994-01-07 SHINGLES VACCINES (#1) [place] [facility] Test 00:00:00 [code = SHINGLES VACCINES (#1)] Future Scheduled 1955-01-07 DIABETIC FOOT EXAM [place] [facility] Test 00:00:00 [code = DIABETIC FOOT EXAM] Future Scheduled 1955-01-07 URINE MICROALBUMIN [place] [facility] Test 00:00:00 [code = URINE MICROALBUMIN] Future Scheduled 1945 DIABETIC RETINAL EYE [place] [facility] Test 00:00:00 EXAM [code = DIABETIC RETINAL EYE EXAM] Encounters Start End Encounter Admission Attending Care Care Encounter Source Date/Time Date/Time Type Type Clinicians Facility Department ID 2020-01-31 2020-02-04 Inpatient [facility] [id number] [facility] 00:00:00 00:00:[address] BRANDON [address] Results Test Description Test Time Test Comments Results Result Comments Source POC glucose 2020-02-04 11:30:26 Test Item Value Reference Range Interpretation Comme nts POC glucose (test code = 182 mg/dL 65-99 H Ope rator Name: Phong Campos [id number]) ID: [id number] hartable: [facility] 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 Interpretation (test code = Abnormal 93947-0) [facility] SanjayistBasic metabolic [id number] 05:55:35 Test Item Value Reference Range Interpretation Comments Sodium (test code = 2951-2) 141 135- 148 mEq/L Potassium (test code = 2823-3) 4.3 3.5- 5.0 mEq/L Chloride (test code = 2075-0) 105 98- 112 mEq/L CO2 (test code = 2027-9) 26 24- 31 mEq/L Anion gap (test code = 56440-0) 10@ANIO 7- 15 mEq/L BUN (test code = 3094-0) 40 mg/dL 8-23 H Creatinine (test code = 2160-0) 3.71 mg/dL 0.7-1.2 H Glucose (test code = 2345-7) 96 mg/dL 65-99 Calcium (test code = 97117-5) 8.5 mg/dL 8.8-10.2 L Lab Interpretation (test code = Abnormal 97311-8) Akbar MethodistMagnesium [id number] 05:55:35 Test Item Value Reference Range Interpretation Comments Magnesium (test code = 59479-1) 1.6 mg/dL 1.6-2.4 Akbar MethodistEstimated [id number] 05:55:35 Test Item Value Reference Range Interpretation Comments Estimated GFR (test 15 mL/min/1.73 m2 Almaz Luis Manuel mitchell Units code = 5488) InterpretationG 1 >=90 Annamarie l or highG2 60-89 Mildly decrease dG3a 45-59 Mil dly to moderately decr sprmiV5z 30-44 Moderately to s everely decreasedG4 15-29 Severe ly decreasedG5 <15 Kidney zachery lureThe eGFR was calcul ated using the Chron ic Kidney Disease Epidemiology Collaboration ( CKD-EPI) equation. Interpretation is based on recommendati ons of the National Ki dney Foundation-Kidn ey Disease Outcome s Quality Initiat josh (NKF-KDOQI) pub lished in 2013. Lab Interpretation Abnormal (test code = 34212-8) Akbar MethodistPhosphorus [id number] 05:55:34 Test Item Value Reference Range Interpretation Comments Phosphorus (test code = 2777-1) 4.2 mg/dL 2.4-4.5 Akbar MethodistCBC with platelet and [id number] 05:31:32 Test Item Value Reference Range Interpretation Comments WBC (test code = 43773-2) 4.46 4.50- 11.00 k/uL L RBC (test code = 69039-0) 3.12 m/uL 4.4-6 L HGB (test code = 718-7) 9.0 g/dL 14-18 L HCT (test code = 4544-3) 28.6 % 41-51 L MCV (test code = 787-2) 91.7 fL 82-100 MCH (test code = 785-6) 28.8 pg 27-34 MCHC (test code = 786-4) 31.5 g/dL 31-37 RDW - SD (test code = 48.0 fL 37-55 64938-2) MPV (test code = 44136-9) 11.5 fL 8.8-13.2 Platelet count (test code 146 150- 400 k/uL L = 49380-3) Nucleated RBC (test code 0.00 /100 WBC = 29255-9) Neutrophils (test code = 46.5 % 39-69 34264-5) Lymphocytes (test code = 40.6 % 25-45 04388-7) Monocytes (test code = 8.3 % 0-10 21567-7) Eosinophils (test code = 4.0 % 0-5 94801-6) Basophils (test code = 0.4 % 0-1 12777-9) Immature granulocytes 0.2 % 0-1 "Immat ure (test code = 49709-2) granul ocytes" (promyelocytes, myelocytes, metamyelocytes) Lab Interpretation (test Abnormal code = 72254-8) [facility] MethodistFerritin [id number] 05:22:34 Test Item Value Reference Range Interpretation Comments Ferritin level (test code = 2276-4) 197 ng/mL 30-400 [facility] MethodistTotal iron binding [id number] 05:16:37 Test Item Value Reference Range Interpretation Comments Iron level (test code = 2498-4) 56 ug/dL 59-158 L Iron binding capacity (test code = 170 ug/dL 200-400 L 2500-7) % Saturation (test code = 2502-3) 32.9 % 20-40 Lab Interpretation (test code = Abnormal 83708-5) Akbar MethodistProtein, urine, [id number] 17:19:52 Test Item Value Reference Range Interpretation Comments Protein, urine random (test code = 465 mg/dL 2888-6) [facility] MethodistCreatinine level, urine, [id number] 17:07:30 Test Item Value Reference Range Interpretation Comments Creatinine, urine, random (test code 44 mg/dL = 33844-2) [facility] FaithUS [id number] 15:47:22Hm Interface, Radiology Results Incoming 02/01/2020 3:50 PM CDTEXAMINATION: US RENALCLINICAL HISTORY: Renal failure acute (kidney injury), Renal failure chronic (kidney disease)COMPARISON: Noneavailable.FINDINGS: The kidneys are normal in size and echogenicity. There is no evidence of renal mass, calculi, or hydronephrosis.The right kidney measures 11.5 x 6.1 x 5.4 cm. The right renal parenchymal width measures 15 mm. Multiple anechoic structures are present likely representing simple cysts, the largest of which measures 2.4 x 2.0 x 2.1 cm.The left kidney measures 11.2 x 5.8 x 5.6 cm. The left renal parenchymal width measures 15 mm. The urinary bladder is unremarkable.IMPRESSION:No acute sonographic renal abnormality.[facility]-[id number] MethodistTransthoracic Echocardiogram Complete, (w Contrast, Strain and 3D if needed)2020-02-01 15:05:00Interface, Radiology Results In 02/01/2020 3:07 PM CDT Echocardiography Report [address] [place] [address] Pat.Name: SONAL CLARKIRO Pat.ID: [id number].Date: 02/01/2020 Refer.MD: BRANDON HUGHES MDExrenuka Time: 11:44:00 AM Study Type:Routine Echo Height: 67in Weight: 226lb BSA: 2.13 m2 Age: 3 1945,75Y Sex: MALE BP: 172/70 HR: 58 bpm Sonogrphr: Anum Fernández RDCS Pat. Stat.:Inpatient Room: A0846 Study Status:Final Echo Event ID:[id number] Order ID: [id number] Reason for Study:Chest pain, cardiac etiology suspectedProcedures: 2D Echo, Colorflow Doppler, Strain, PortableRace: C SUMMARY: Normal biventricular systolic function.Elevated LV filling pressure and RAP.Findings consistent with HFpEF. Clinical correlation required. FINDINGS:---- LV: LV size is normal. There is mild concentric LV hypertrophy. Normal average LV global longitudinal strain at -22%. LV EF is normal. Overall wall motion is normal. Estimated EF is 60-64%.RV: RV size is normal. RV systolic function is normal.LA: LA volume is moderately enlarged.RA: RA size is normal.AO: Aortic root diameter is normal.BRAULIO: No pericardial effusion.SVn: Inferior vena cava is dilated. Minimal collapse of IVC during inspiration is consistent with elevated RA pressure.AV: Tri cuspid aortic valve.MV: No structural MV abnormalities noted.PV: No structural PV abnormalities noted.TV: No structural TV abnormalities noted.Ferrer: Diastolic dysfunction Grade II (Moderate): Impaired relaxation with elevated LV filling pressures.Other: Insufficient TR jet to estimate PA systolic pressure. MEASUREMENTS: 2DParasternal Long [place] Ao Rtd 3.8 cm Index 1.8 cm/m2 RWT 0.49 IVSd 1.1 cm LV Mass 254 g (122- 174) LVIDd 5.3 cm Index 2.5 cm/m2 LVM Index 119 g/m2 LVPWd 1.3 cm LA Sng Plane LA Area 28 cm2 (8.8-23.4) LA Vol 91 ml Index 43 ml/m2 LA LngAx 6.9 cm Signed 02/01/2020 03:05 PMSherif Rhina Arcos M.D.Akbar MethodistECG 12 [id number] 12:13:03 Test Item Value Reference Range Interpretation Comments Ventricular rate (test 56 code = 253) Atrial rate (test code = 56 255) GA interval (test code = 164 266) QRSD interval (test code 82 = 260) QT interval (test code = 446 264) QTC interval (test code 430 = 265) P axis 1 (test code = 28 267) QRS axis 1 (test code = 11 268) T wave axis (test code = 30 270) EKG impression (test Sinus code = 273) bradycardia-Otherwise normal ECG-- [facility] MethodistHemoglobin [id number] 08:05:23 Test Item Value Reference Range Interpretation Comments Hemoglobin A1C (test 7.5 % 4-5.6 H HbA1c c utoffs for code = 18609-7) diagnosing diabetes:4.0% - 5.6% = normal5.7% - 6.4% = increased risk for diabetes (prediabetes)9> =6.5% = fbvapizq5Ccou s for glycemic contro l (ADA 2016)< 7.0% Ta rget for non adults with pati betes. More or less stringent targe ts may be appropriate for individual kalpana ents. <7.5% Target for Children and adolescents wit h type 1 diabetes. Lab Interpretation (test Abnormal code = 17797-1) Akbar MethodistManual [id number] 07:10:42 Test Item Value Reference Range Interpretation Comments Manual differential (test code = PERFORMED 66391-4) Neutrophils (test code = 53.0 % 39-69 09646-5) Lymphocytes (test code = 42.0 % 25-45 33721-7) Monocytes (test code = 70277-1) 2.0 % 0-10 Eosinophils (test code = 3.0 % 0-5 87913-3) Basophils (test code = 13525-6) 0.0 % 0-1 Metamyelocytes (test code = 0 % 740-1) Promyelocytes (test code = 0 % 783-1) Platelet slide review (test code Elke slt decr = 45721-2) Anisocytosis (test code = 702-1) Moderate Enlarged platelets (test code = Moderate A 77408-8) Lab Interpretation (test code = Abnormal 36827-6) Akbar MethodistT4, [id number] 04:35:47 Test Item Value Reference Range Interpretation Comments T4, free (test code = 3024-7) 1.0 ng/dL 0.9-1.7 [facility] MethodistThyroid stimulating [id number] 04:35:47 Test Item Value Reference Range Interpretation Comments TSH (test code = 3016-3) 5.93 0.27- 4.20 uIU/mL H Lab Interpretation (test code = Abnormal 13971-5) [facility] MethodistLipid [id number] 04:30:09 Test Item Value Reference Interpretation Comments Range Cholesterol (test 105 mg/dL <200 code = 2093-3) Triglycerides (test 125 mg/dL <150 code = 2571-8) HDL cholesterol 34 mg/dL >40 L (test code = 2085-9) LDL cholesterol 57 mg/dL <100 Result obtai jalil by direct (test code = 2089-1) LDL efrain surement Lipid panel SeeBelow Total Cholester ol (mg/dL) interpretation (test < 200 code = 89347-9) Desirable 200-239 Borderline -high >=240 Hi gh Triglyceri [place] (mg/dL) <150 No rmal 150-199 Borderline-high 200-499 High >=500 Very high HDL Choles terol (mg/dL) <40 Low (male) < 40 Low (female) L DL Cholesterol (mg /dL) <100 Optimal 1 00-129 Near or above o ptimal 130-159 Borderline-high 160-189 High >=190 Very high Risk Cat ergories that modify LDL goals.Risk Catergories LDL goal (mg/dL )CHD and CHD risk equiva lent <100 (10-year risk >20%)Multiple ( 2+) risk factors < 130 (10-year risk = <20%)0-1 risk factors <160 (<10-ye ar risk) Defining levels of lipids in metabolic syndromeTriglyc erides > =150 mg/dLHDL Choles terol Men <40 mg/dL Women <40 mg/dL Non-HDL cholest nasir is a second target f or therapy in personswith high triglycerides ( >=200 mg/dL) Lab Interpretation Abnormal (test code = 85881-1) Akbar [id number] 02:58:50 Test Item Value Reference Range Interpretation Comments Troponin (test code 0.019 ng/mL 0-0.04 In patie nts suspected = 01373-1) of having a matty cardial infarction, jeny mercedes with all other appro priate clinical measur es and actions includi ng ECG and other diagn ostics as appropriate, measure Ultra TnI at 0 hrs and at 3 hrs.Myocar dial infarction VERY LIKELYThe 0 hr TnI level is > 0.10 ng/mL -------- -------- -------- --------Myocard ial infarction LIKE LYThe 0 hr TnI level is > 0.04 ng/mL and 3 hr level is increased or de creased by at least 0.0 20 ng/mL -------- -------- -------- ---Myocardial infarction VERY UNLIKELYBoth th e 0 hr and 3 hr TnI le vels <= 0.04 ng/mL(with in normal limits) OR 0 hr is > 0.04 ng/mL and 3 hr is increased OR decreased by le ss than 0.020 ng/mL [facility] MethodistUrinalysis screen and microscopy, with reflex to culture 2020-01-31 22:34:38 Test Item Value Reference Range Interpretation Comments Specimen site (test code = Clean catch 4812507) Color, UA (test code = 5778-6) Yellow Appearance, UA (test code = Clear 5767-9) Specific gravity, UA (test code = 1.015 1.001-1.035 5811-5) pH, UA (test code = 5803-2) 7.0 5.0-8.5 Protein, UA (test code = 09962-6) 3+ Negative A Glucose, UA (test code = 36883-0) 3+ Negative A Ketones, UA (test code = 2514-8) Negative Negative Bilirubin, UA (test code = Negative Negative 5770-3) Blood, UA (test code = 5794-3) Negative Negative Nitrite, UA (test code = 5802-4) Negative Negative Urobilinogen, UA (test code = <2.0 <2.0 10312-9) Leukocyte esterase, UA (test code Negative Negative = 5799-2) Epithelial cells, UA (test code = <1 /HPF 5787-7) WBC, UA (test code = 5821-4) 3 0- 1 /HPF H RBC, UA (test code = 48385-9) 1 0- 5 /HPF Bacteria, UA (test code = None seen None seen 01232-9) Yeast, UA (test code = 81017-0) None seen Yeast with pseudohyphae, UA (test None seen code = 62265-3) Hyaline casts, UA (test code = 10 /LPF 5796-8) Lab Interpretation (test code = Abnormal 79925-9) Akbar GanUrine [id number] 21:52:58 Test Item Value Reference Range Interpretation Comments Urine culture (test SEE COMMENT Bacteriu bolivar screen code = 3379682) negative. Akbar GanXR Chest 1 [id number] 20:59:33Hm Interface, Radiology Results 01/31/2020 9:02 PM CDTEXAMINATION: XR CHEST 1 PORTABLECLINICAL HISTORY: 75 years Male edemaCOMPARISON: 01/22/2017IMPRESSION:1.The heart size is normal. The aorta is atherosclerotic.2.Mild central pulmonary vascular congestion.3.Minimal bibasilar atelectasis with tiny pleural effusions. [facility]-[id number] [facility] metabolic [id number] 20:21:09 Test Item Value Reference Range Interpretation Comments Sodium (test code = 141 135- 148 mEq/L 2951-2) Potassium (test code = 5.3 3.5- 5.0 mEq/L H 2823-3) Chloride (test code = 114 98- 112 mEq/L H 5-0) CO2 (test code = 2027-) 22 24- 31 mEq/L L Anion gap (test code = 5@ANIO 7- 15 mEq/L L 65743-0) BUN (test code = 3094-0) 37 mg/dL 8-23 H Creatinine (test code = 3.78 mg/dL 0.7-1.2 H 2160-0) Glucose (test code = 193 mg/dL 65-99 H 2345-7) Calcium (test code = 8.7 mg/dL 8.8-10.2 L 96030-7) Protein (test code = 6.0 g/dL 6.3-8.3 L -[place] n 2885-2) 4.6-7.0 g/dL1 week 4.4-7 .6 g/dL7 months-1y ear 5.1-7 .3 g/dL1-2 years 5.6-7 .5 g/dL>3 years 6.0-8 .0 g/xL97-063 6.3-8 .3 g/dL Albumin (test code = 2.4 g/dL 3.5-5 L 1751-7) A/G ratio (test code = 0.7 0.7-3.8 1759-0) Alkaline phosphatase 99 U/L 40-129 (test code = 6768-6) AST (test code = 1920-8) 27 U/L 10-50 ALT (test code = 1742-6) 20 U/L 5-50 Total bilirubin (test 0.4 mg/dL 0-1.2 code = 1974-) Lab Interpretation (test Abnormal code = 09930-7) [facility]bar MethodistB natriuretic [id number] 20:18:36 Test Item Value Reference Range Interpretation Comments BNP (test code = 78938-6) 538 pg/mL 0-100 H Lab Interpretation (test code = Abnormal 88641-4) Akbar [id number] 20:06:38 Test Item Value Reference Range Interpretation Comments D-dimer (test code = 1.30 0.00- 0.40 ug/mL H Uni ts are ug/ml 66648-4) FEU Fibrinogen Equivalent Unit .When combined with l ow clinical probability, D- dimer results of less than 0.5 ug/ml FEU h ave a good negative predictive valu e in excluding PE or DVT. For D-dimer re sults greater than 0. 5 ug/ml FEU furth er testing is laurie cated if PE or DVT is suspected clinically.Elev ated D-dimer results have been reported i n DVT, PE, and DI C cases and may indicate the presence of a c lot. D-dimer results may be elevated due to old age, pregna ncy, inflammatory diseases, traum a, post-operative states, sepsis, and malignancies. Lab Interpretation Abnormal (test code = 70547-8) Mclean MethodistProthrombin time with [id number] 20:04:52 Test Item Value Reference Range Interpretation Comments Prothrombin time (test 14.9 11.5- 14.5 sec H code = 5902-2) INR (test code = 1.2 [facility] 53037-3) Normalized Rati o (INR) is a therapeuti c monitoring tool for patients who ar e stable on oral anticoagulant t herapy. An INR of 2.0-3 .0 is suggested for d eep vein thrombosis/pulm onary embolism. Lab Interpretation Abnormal (test code = 35894-8) Mclean MethodistPartial thromboplastin time, [id number] 20:04:33 Test Item Value Reference Range Interpretation Comments PTT (test code = 31.7 23.0- 36.0 [place] [address]-9) unfractionated heparin is61.0-112.0 se conds which corresponds to Anti-Xa0.3-0.7 U/ml. [facility] Preliminary Interpretation - Not an [id number] 19:49:26 Test Item Value Reference Range Interpretation Comments SRIDHAR (test code = SRIDHAR) Yohannes Power MD 02/03/2020 7:50 [facility] ED Preliminary Interpretation - Not an OrderPerformed by: Yohannes Power MDAuthorized by: Yohannes Power MD ECG reviewed by ED Physician in the absence of a soccer referee: yes Interpretation: Interpretation: abnormal Rate: ECG rate: 56 ECG rate assessment: bradycardic Rhythm: Rhythm: sinus bradycardia Ectopy: Ectopy: none QRS: QRS axis: Normal QRS intervals: NormalConduction: Conduction: normal ST segments: ST segments: NormalT waves: T waves: normal Lab Interpretation Abnormal (test code = 52835-5) Akbar Gan
[2020-04-29 08:14] VITALS: BP 148/53; TEMP 97.5; O2SAT 98; BMI 33.0
[2020-04-29 08:25] LABS: Hematocrit 26.4 % (39.6-49.0)
== END ==
LOC: DS 07:46
PROVIDERS: ATTEND Internal Medicine
DX: N18.4 Chronic kidney disease, stage 4 (severe) (principal); D63.1 Anemia in chronic kidney disease; D50.9 Iron deficiency anemia, unspecified
CPT/HCPCS: 36415; 85018; 85014; 96372; Q5106

== ENCOUNTER 2022-07-25 09:34 | Emergency (ER) | payer BC, OTHER ==
--- OUTSIDE RECORDS SUMMARY | 2022-07-25 09:38 | XMS REPORT | Continuity of Care Document ---
:1945 Author Organization [facility] t Address Pending sale to [facility] [place] [address] Care Team Providers Name Role Phone Asked, No Pcp Primary Care Physician Unavailable KAMLESH MOORE Attending Clinician Unavailable MD KAMLESH MOORE Attending Clinician Unavailable BRANDON HUGHES Attending Clinician Unavailable KAMLESH MOORE Admitting Clinician Unavailable MD KAMLESH MOORE Admitting Clinician Unavailable BRANDON HUGHES Admitting Clinician Unavailable Problems Condition Condition Condition Status Onset Resolution Last Treating Co mments Source Name Details Category Date Date Treatment Clinician Date ESRD (end ESRD (end Disease Active Overview: [facility] stage stage 5-[address] renal renal 00:00: g of this Hospita disease) disease) 00 note l might be different from the original. 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 Family History Family Member Diagnosis Comments Start Date Stop Date Source Natural father [facility] Social History Social Habit Start Date Stop Date Quantity Comments Source History of tobacco Current smoker [facility] Alcohol intake 2021-10-18 2021-10-18 [facility] 00:00:00 00:00:00 Hospital Cigarettes smoked 2021-03-15 2021-03-[address] current (pack per 00:00:00 00:00:00 Hospita l day) - Reported Cigarette 2021-03-15 2021-03-15 [facility] pack-years 00:00:00 00:00:00 Hospital Tobacco use and 2021-03-15 2021-03-15 Smokeless tobacco [facility] exposure 00:00:00 00:00:00 non-user Hospital Alcohol Comment 2017-01-22 2017-01-22 [facility] 00:00:00 00:00:00 Hospital Sex Ass[birth year] At [birth year] [facility] 00:00:00 00:[facility]:00 Hospital Smoking Status Start Date Stop Date Source Ex-smoker 2021-03-15 00:00:00 2021-03-[facility] Or[facility] F[facility] Start Stop Current Ordering Indication Dosage Frequency Signature Comments Components Source Medication Medication Date Date Medication? Clinician (SIG) Name Name chlorthalid Yes 25mg QD Take 25 mg [facility] one 5-[address] (HYGROTEN) 17:07: daily. Hospi ta 25 MG 39 l tablet repaglinide Yes 1mg Q.55140308 Take 1 mg [facility] (PRANDIN) 1 5-20 [id number] mouth [address] MG tablet 17:07: 3D (three) Hospi ta 39 times a l day before meals. atorvastati Yes 40mg QD Take 40 mg [facility] n (LIPITOR) 5-[address] 40 MG 17:07: daily. Hospita tablet 39 l clopidogrel Yes 75mg QD Take 75 mg [facility] (PLAVIX) 75 5-[address] mg tablet 17:07: daily. Hospit a 39 l famotidine Yes 20mg Q.5D Take 20 mg M [facility]i (PEPCID) 20 5-[address] MG tablet 17:07: (two) Hospita 39 times a l day as needed for indigestio n or heartburn. omega-3 Yes 1g Q.5D Take 1 g [facility] acid ethyl 5-[address] esters 17:07: (two) Hospita (LOVAZA) 1 39 times a l gram day. capsule nebivolol Yes 5mg QD Take 5 mg Met hodi (BYSTOLIC) 5-[address] 5 MG tablet 17:07: daily. Hosp abdirizak 39 l aspirin Yes 81mg QD Take 81 mg Meth tiffanie (ECOTRIN) 5-[address] 81 MG 17:07: daily. Hospita enteric 39 l coated tablet nitroglycer Yes .4mg Place 0.4 M ethodi in 5-[address] (NITROSTAT) 17:07: the tongue Hospita 0.4 MG SL 39 every 5 l tablet (five) minutes as needed for chest pain. sodium Yes 1{spray 1 spray Metho di chloride 5-20 } into each st (OCEAN) 17:07: nostril as Hosp abdirizak 0.65 % 39 needed for l nasal spray rhinitis. multivitami Yes 1{tbl} QD Take 1 [facility] with 5-[address] minerals 17:07: mouth Hospita tablet 39 daily. l tamsulosin Yes .4mg QD Take 0.4 Met [facility]odi (FLOMAX) 5-[address] 0.4 mg 17:07: mouth Hospita capsule 39 daily with l dinner. pantoprazol Yes 40mg Q.5D Take 40 mg [facility] e 5-[address] (PROTONIX) 17:07: (two) Hospit a 40 MG EC 39 times a l tablet day. Procedures This patient has no known procedures. Plan of Care Planned Activity Planned Date Details Comments Source Future Scheduled 2022-07-05 HEPATITIS B VACCINES Met [facility] Test 09:38:21 (1 of 3 - 3-dose series) [code = HEPATITIS B VACCINES (1 of 3 - 3-dose series)] Future Scheduled 2022-07-05 COVID-19 VACCINE (#1) [facility] Test 09:38:21 [code = COVID-19 VACCINE (#1)] Future Scheduled 2022-07-05 65+ PNEUMOCOCCAL [facility] Test 09:38:21 VACCINE (1 - PCV) [code = 65+ PNEUMOCOCCAL VACCINE (1 - PCV)] Future Scheduled 2022-07-05 DIABETES: RETINAL EYE [facility] Test 09:38:21 EXAM [code = DIABETES: RETINAL EYE EXAM] Future Scheduled 2022-07-05 DIABETIC FOOT EXAM [facility] Test 09:38:21 [code = DIABETIC FOOT EXAM] Future Scheduled 2022-07-05 Hepatitis C screening [facility] Test 09:38:21 (procedure) [code = 000577466] Future Scheduled 2022-07-05 SHINGLES VACCINES (1 Met [facility] Test 09:38:21 of 2) [code = SHINGLES VACCINES (1 of 2)] Future Scheduled 2022-07-05 INFLUENZA VACCINE Method [facility] Test 09:38:21 [code = INFLUENZA VACCINE] Encounters Start End Encounter Admission Attending Care Care Encounter Source Date/Time Date/Time Type Type Clinicians Facility Department ID 2021-04-07 2021-04-07 Outpatient [facility] [id number] [place] 00:00:00 00:00:00 KAMLESH 685 Method i 2021-03-25 2021-03-25 Outpatient [facility] 021 [id number] [place] 00:00:00 00:00:00 KAMLESH 314 Method i 2021-03-22 2021-03-22 Outpatient [facility] [id number] [place] 00:00:00 00:00:00 KAMLESH 912 Method i 2021-03-15 2021-03-15 Outpatient [facility] [id number] [place] 00:00:00 00:00:00 KAMLESH 471 Method i 2020-01-31 2020-02-04 Inpatient [facility] [id number] [place] 00:00:00 00:00:00 BRANDON [address] Results Test Description Test Time Test Comments Results Result Comments Source SARS-CoV-2 (COVID-19) RNA [Presence] in Respiratory sp ecimen by 2021-03-23 02:40:28 SERGIO with probe detection Test Item Value Reference Range Interpretation Comme nts SARS-CoV-2 (COVID-19) RNA [Presence] in Respiratory Not detected No t-Detected specimen by SERGIO with probe detection (test code = 31271-7) Whether patient is employed in a healthcare setting (test code = 02135-6) Whether the patient has symptoms related to condition of interest (test code = 18937-2) Patient was hospitalized because of this condition (test code = 10069-4) Whether the patient was admitted to intensive care unit (ICU) for condition of interest (test code = 18533-6) Whether patient resides in a congregate care setting (test code = 76134-8)
--- NOTE | 2022-07-25 11:04 | ER ---
Nurse's Notes [facility] Name: Kel Clark Age: 77 yrs Sex: Male : 1945 Arrival Date: 07/25/2022 Time: 09:36 Bed 10 Private MD: Diagnosis: Other specified disorders of synovium, left wrist;Left Wrist Tendonitis Presentation: 07/25 09:57 Chief complaint: Patient states: L wrist pain x 3 days, denies trauma, swelling noted ph to hand, took Tylenol at 0730. Coronavirus screen: Vaccine status: Patient reports receiving the 2nd dose of the covid vaccine. Ebola Screen: No symptoms or risks identified at this time. Initial Sepsis Screen: Does the patient meet any 2 criteria? No. Patient's initial sepsis screen is negative. Does the patient have a suspected source of infection? No. Patient's initial sepsis screen is negative. Risk Assessment: Do you want to hurt yourself or someone else? Patient reports no desire to harm self or others. Onset of symptoms was July 25, 2022. 09:57 Method Of Arrival: Ambulatory ph 09:57 Acuity: SAMEER 4 ph Triage Assessment: 09:59 General: Appears in no apparent distress. Behavior is calm, cooperative, appropriate ph for age. Pain: Complains of pain in left wrist. Musculoskeletal: Swelling present in left hand. Historical: - Allergies: :58 No Known Allergies; ph - PMHx: :58 Hypertension; cardiac stent; Diabetes - IDDM; High Cholesterol; peritoneal dialysis; ph - Immunization history:: Adult Immunizations unknown. - Social history:: Smoking status: Patient denies any tobacco usage or history of. Screenin:59 Abuse screen: Denies threats or abuse. Denies injuries from another. Nutritional ph screening: No deficits noted. Tuberculosis screening: No symptoms or risk factors identified. Fall Risk None identified. Assessment: 10:20 General: SEE TRIAGE NOTE. ph Vital Signs: 09:57 BP 145 / 54; Pulse 64; Resp 18; Temp 98.0; Pulse Ox 98% on R/A; Weight 97.98 kg; Height ph 5 ft. 7 in. (170.18 cm); Pain 10/10; 09:57 Body Mass Index 33.83 (97.98 kg, 170.18 cm) ph ED Course: 09:36 Patient arrived in ED. rg4 09:37 [facility] Mitchell [facility] 7 09:37 Dominique Jackson MD is Attending Physician. [facility] er 09:57 Sydney Frias, RN is Primary Nurse. ph 09:58 Triage completed. ph 09:59 Arm band placed on Patient placed in an exam room, on a stretcher. ph 09:59 Patient has correct armband on for positive identification. Bed in low position. Call light in reach. Side rails up X 1. Pulse ox on. NIBP on. 10:32 XRAY Hand LEFT 3 View In Process Unspecified. EDMS 10:32 XRAY Wrist LEFT 3 view In Process Unspecified. EDMS 11:25 No provider procedures requiring assistance completed. Patient did not have IV access jl7 during this emergency room visit. Yon wrap to left wrist. Administered Medications: 11:25 Drug: Decadron (dexamethasone) 10 mg Route: IM; Site: left deltoid; 7 11:26 Follow up: Response: Medication administered at discharge. 7 Medication: 09:59 VIS not applicable for this client. Outcome: 11:04 Discharge ordered by . 7 11:25 Discharged to home ambulatory, with family. jl7 11:25 Condition: stable 11:25 Discharge instructions given to patient, family, Instructed on discharge instructions, follow up and referral plans. Demonstrated understanding of instructions, follow-up care. 11:26 Patient left the ED. jl7 Signatures: Dispatcher [employer] EDCA Sydney Frias, RN Analisa Flores ph rg4 Dorothea Mittal RN RN [facility] Meghna Mitchell FNP [place] [id number]
--- NOTE | 2022-07-25 11:04 | EDPHYS ---
Physician Documentation [facility] Name: Kel Clark Age: 77 yrs Sex: Male : 1945 Arrival Date: 07/25/2022 Time: 09:36 Bed 10 Private MD: ED Physician Dominique Jackson HPI: 07/25 09:55 This 77 yrs old Male presents to ER via Ambulatory with complaints of Arm Pain.jh7 09:55 The patient or guardian complains of decreased range of motion, pain, that is acute, jh7 swelling, tenderness. The complaints affect the left wrist. Onset: The symptoms/episode began/occurred 3 day(s) ago. Treatment prior to arrival includes: over the counter medications, Tylenol. Associated signs and symptoms: Pertinent negatives: deformity, fever, warmth. Historical: - Allergies: 09:58 No Known Allergies; ph - PMHx: 09:58 Hypertension; cardiac stent; Diabetes - IDDM; High Cholesterol; peritoneal dialysis; ph - Immunization history:: Adult Immunizations unknown. - Social history:: Smoking status: Patient denies any tobacco usage or history of. ROS: 09:55 Constitutional: Negative for fever, chills, and weight loss, Eyes: Negative for injury, jh7 pain, redness, and discharge, Neck: Negative for injury, pain, and swelling, Cardiovascular: Negative for chest pain, palpitations, and edema, Respiratory: Negative for shortness of breath, cough, wheezing, and pleuritic chest pain, Abdomen/GI: Negative for abdominal pain, nausea, vomiting, diarrhea, and constipation, Back: Negative for injury and pain, Skin: Negative for injury, rash, and discoloration, Neuro: Negative for headache, weakness, numbness, tingling, and seizure. 09:55 MS/extremity: Positive for decreased range of motion, pain, swelling, tenderness, Negative for injury or acute deformity, erythema. 09:55 All other systems are negative. Exam: 09:55 Constitutional: This is a well developed, well nourished patient who is awake, alert, jh7 and in no acute distress. Head/Face: Normocephalic, atraumatic. Neck: Trachea midline, no thyromegaly or masses palpated, and no cervical lymphadenopathy. Supple, full range of motion without nuchal rigidity, or vertebral point tenderness. No Meningismus. Cardiovascular: Regular rate and rhythm with a normal S1 and S2. No gallops, murmurs, or rubs. Normal PMI, no JVD. No pulse deficits. Respiratory: Lungs have equal breath sounds bilaterally, clear to auscultation and percussion. No rales, rhonchi or wheezes noted. No increased work of breathing, no retractions or nasal flaring. Back: No spinal tenderness. No costovertebral tenderness. Full range of motion. Skin: Warm, dry with normal turgor. Normal color with no rashes, no lesions, and no evidence of cellulitis. Neuro: Awake and alert, GCS 15, oriented to person, place, time, and situation. Sensory grossly intact. Normal gait. 09:55 Musculoskeletal/extremity: ROM: limited active range of motion, in the left wrist, limited passive range of motion due to pain, in the left wrist. Vital Signs: 09:57 BP 145 / 54; Pulse 64; Resp 18; Temp 98.0; Pulse Ox 98% on R/A; Weight 97.98 kg; Height ph 5 ft. 7 in. (170.18 cm); Pain 10/10; 09:57 Body Mass Index 33.83 (97.98 kg, 170.18 cm) ph MDM: 09:41 Patient medically screened. [facility] 11:20 Differential diagnosis: closed fracture, contusion, tendonitis. Data reviewed: vital [facility] signs, nurses notes, radiologic studies, plain films. Data interpreted: Pulse oximetry: is 98 %. Interpretation: normal. Counseling: I had a detailed discussion with the patient and/or guardian regarding: the historical points, exam findings, and any diagnostic results supporting the discharge/admit diagnosis, to return to the emergency department if symptoms worsen or persist or if there are any questions or concerns that arise at home. 07/25 09:54 Order name: XRAY Hand LEFT 3 View; Complete Time: 11:49 [facility] 07/25 09:54 Order name: XRAY Wrist LEFT 3 view; Complete Time: 11:49 [facility] 07/25 10:58 Order name: Yon Wrap; Complete Time: 11:25 [facility] Administered Medications: 11:25 Drug: Decadron (dexamethasone) 10 mg Route: IM; Site: left deltoid; 7 11:26 Follow up: Response: Medication administered at discharge. jl7 Disposition: 17:08 STAFF ATTESTATION STATEMENT: I was immediately available onsite in the emergency sd2 department for consultation in the care of this patient. I did not see or examine this patient. Dominique Jackson MD. Disposition Summary: 07/25/22 11:04 Discharge Ordered Location: [place] [address] Problem: new [facility] Symptoms: are unchanged [facility] Condition: Stable [facility] Diagnosis - Other specified disorders of synovium, left wrist [facility] - Left Wrist Tendonitis [facility] Followup: [facility] - With: Private Physician - When: 2 - 3 days - Reason: Recheck today's complaints Discharge Instructions: - Discharge Summary Sheet [facility] - Wrist Pain, Adult [facility] Forms: - Medication Reconciliation Form [facility] - Thank You Letter [facility] Signatures: Dispatcher [employer] Sydney Hwang, RN RN Dorothea Mittal RN RN 7 Meghna Mitchell, PAINTING MANAGER PAINTING MANAGER [facility] Dominique Jackson MD MD [facility]
[2022-07-25] MEDS ORDERED: dexAMETHasone 10 MG/ML VIAL ONE (11:26)
--- NOTE | 2022-07-25 11:45 | RAD REPORT ---
EXAM DESCRIPTION: RAD - Hand Left 3 View - 07/25/2022 10:31 am CLINICAL HISTORY: PAIN COMPARISON: No comparisons FINDINGS: Soft tissue swelling is seen along the dorsum of the hand and wrist. Diffuse osteopenia is evident. No acute fracture or dislocation. Moderate radiocarpal arthritic changes. Heavy vascular at herosclerotic change.
--- NOTE | 2022-07-25 11:45 | RAD REPORT ---
EXAM DESCRIPTION: RAD - Wrist Left 3 View - 07/25/2022 10:31 am CLINICAL HISTORY: PAIN Pain COMPARISON: Hand Left 3 View dated 07/25/2022 FINDINGS: Prominent osteopenia seen. Mild radiocarpal arthritic changes are present. Heavy atheros clerosis. No acute fracture or dislocation.
[2022-07-26 15:10] VITALS: BP 145/54; TEMP 98; O2SAT 98
== END 2022-07-25 11:26 | disposition home or self-care (01) ==
LOC: ER 09:34
DX: M67.832 Other specified disorders of synovium, left wrist (principal); I10 Essential (primary) hypertension; Z99.2 Dependence on renal dialysis
CPT/HCPCS: 73130; 73110; J1100; 96372; 99284

== ENCOUNTER 2023-09-01 17:31 | Emergency (ER) | payer OTHER ==
--- OUTSIDE RECORDS SUMMARY | 2023-09-01 17:35 | XMS REPORT | Continuity of Care Document ---
:1945 Author Organization [facility] t Address [address] [place] [address] Care Team Providers Name Role Phone Asked, [...] Added automatic ally from request for surgery [id number] Acute Acute Disease Active [facility] systolic systolic 3-27 st congestive congestive 00:00: [facility] heart heart 00 l failure failure Coronary Coronary Disease Active [facility] artery artery 3-[facility] st disease disease 00:00: [facility]ospita involving involving [place] coronary coronary artery artery Chest pain Chest pain Disease Active [facility] 00:00: Hospita 00 l Coronary Coronary Disease Active [facility] artery artery 3-[facility] st disease disease 00:00: [facility]ospita involving involving [place] coronary coronary artery artery Type 2 Type [...] Date Stop Date Source Natural father [facility] Social History Social Habit Start Date Stop Date Quantity Comments Source History of tobacco [facility]igarette [facility] of Social 2021-10-18 2021-10-[address] function 00:00:00 00:00:00 [facility] Alcohol intake 2021-10-18 2021-10-18 [facility] Tobacco use and 2021-03-15 2021-03-15 Smokeless [facility] 00:[facility]:00 tobacco non-user Hospital Cigarettes smoked 2021-03-15 2021-03-[address] current (pack per 00:00:00 00:00:00 Hospita l day) - Reported Cigarette 2021-03-15 2021-03-15 [facility]00 [facility] Alcohol Comment 2017-01-22 2017-01-22 [facility] Sex Assigned At [birth year] [facility] Smoking Status Start Date Stop Date Source Ex-smoker 2021-03-15 00:00:00 2021-03-15 00:00:00 [facility] Medications Ordered Filled Start Stop Current Ordering Indication Dosage Frequency Signature Comments Components Source Medication Medication Date Date Medication? Clinician (SIG) Name Name chlorthalid Yes 25mg QD Take 25 mg [facility] one 5-[address] (HYGROTEN) 17:07: daily. Hospi ta 25 MG 39 l tablet repaglinide Yes 1mg Q.[id number] Take 1 mg [facility] (PRANDIN) 1 5-20 [id number] [address] mouth [address] MG tablet 17:07: 3D (three) Hospi ta 39 times a l day before meals. atorvastati Yes 40mg QD Take 40 mg [facility] n (LIPITOR) 5-[address] 40 MG 17:07: daily. Hospita tablet 39 l clopidogrel 0 Yes 75mg QD Take 75 mg [facility] (PLAVIX) 75 5-[address] mg tablet 17:07: daily. Hospit a 39 l famotidine 0 Yes 20mg Q.5D Take 20 mg [facility] (PEPCID) 20 5-[address] MG tablet 17:07: (two) Hospita 39 times a l day as needed for indigestio n or heartburn. omega-3 0 Yes 1g Q.5D Take 1 g [facility] acid ethyl 5-[address] esters 17:07: (two) Hospita (LOVAZA) 1 39 times a l gram day. capsule nebivolol 0 Yes 5mg QD Take 5 mg [facility] (BYSTOLIC) 5-[address] 5 MG tablet 17:07: daily. Hosp abdirizak 39 l aspirin 0 Yes 81mg QD Take 81 mg Meth [...] mouth Hospita tablet 39 daily. l tamsulosin 0 Yes .4mg QD Take 0.4 [facility] (FLOMAX) 5-[address] 0.4 mg 17:07: mouth Hospita capsule 39 daily with l dinner. pantoprazol 0 Yes 40mg Q.5D Take 40 mg [facility] e 5-[address] (PROTONIX) 17:07: (two) Hospit a 40 MG EC 39 times a l tablet day. chlorthalid 0 Yes 25mg QD Take 25 mg [facility] one 5-[address] (HYGROTEN) 17:07: daily. Hospi ta 25 MG 39 l tablet repaglinide Yes 1mg Q.[id number] Take 1 mg [facility] (PRANDIN) 1 5-20 [id number] [address] mouth [address] MG tablet 17:07: 3D (three) Hospi ta 39 times a l day before meals. atorvastati 0 Yes 40mg QD Take 40 mg [facility] (LIPITOR) 5-[address] 40 MG 17:07: daily. Hospita tablet 39 l clopidogrel 0 Yes 75mg QD Take 75 mg [facility] (PLAVIX) 75 5-[address] mg tablet 17:07: daily. Hospit a 39 l famotidine Yes 20mg Q.5D Take 20 mg [facility] (PEPCID) 20 5-[address] MG tablet 17:07: (two) Hospita 39 times a l day as needed for indigestio n or heartburn. omega-3 0 Yes 1g Q.5D Take 1 g [facility] acid ethyl 5-[address] esters 17:07: (two) Hospita (LOVAZA) 1 39 times a l gram day. capsule nebivolol Yes 5mg QD Take 5 mg [facility] (BYSTOLIC) 5-[address] 5 MG tablet 17:07: daily. Hosp abdirizak 39 l aspirin 0 Yes 81mg QD Take 81 mg Meth [...] mouth Hospita tablet 39 daily. l tamsulosin 2021-0 Yes .4mg QD Take 0.4 [facility] [...] Planned Date Details Comments Source Future Scheduled 2023-08-28 COVID-19 VACCINE (#1) [facility] Test 12:41:02 [code = COVID-19 VACCINE (#1)] Future Scheduled 2023-08-28 65+ P[facility]UMOCOCCAL [facility] Test 12:41:02 VACCINE (1 - PCV) [code = 65+ PNEUMOCOCCAL VACCINE (1 - PCV)] Future Scheduled 2023-08-28 DIABETES: RETINAL EYE [facility] Test 12:41:02 EXAM [code = DIABETES: RETINAL EYE EXAM] Future Scheduled 2023-08-28 DIABETIC FOOT EXAM [facility] Test 12:41:02 [code = DIABETIC FOOT EXAM] Future Scheduled 2023-08-28 Hepatitis C screening [facility] Test 12:41:02 (procedure) [code = 382169182] Future Scheduled 2023-08-28 SHINGLES VACCINES ([address] [facility] Test 12:41:02 of 2) [code = SHINGLES VACCINES (1 of 2)] Future Scheduled 2023-08-28 INFLUENZA VACCINE (#1) [facility] Test 12:41:02 [code = INFLUENZA VACCINE (#1)] Future Scheduled 2022-07-05 HEPATITIS B VACCINES [facility] Test 09:38:21 (1 of 3 - 3-dose series) [code = HEPATITIS B VACCINES (1 of 3 - 3-dose series)] Future Scheduled 2022-07-05 COVID-19 VACCINE (#1) [facility] Test 09:38:21 [code = COVID-19 VACCINE (#1)] Future Scheduled 2022-07-05 65+ [facility]OCOCCAL [facility] Test 09:38:21 VACCINE (1 - PCV) [code = 65+ PNEUMOCOCCAL VACCINE (1 - PCV)] Future Scheduled 2022-07-05 DIABETES: RETINAL EYE [facility] Test 09:38:21 EXAM [code = DIABETES: RETINAL EYE EXAM] Future Scheduled 2022-07-05 DIABETIC FOOT EXAM [facility] Test 09:38:21 [code = DIABETIC FOOT EXAM] Future Scheduled 2022-07-05 Hepatitis C screening [facility] Test 09:38:21 (procedure) [code = 380159925] Future Scheduled 2022-07-05 SHINGLES VACCINES (1 Met [facility] Test 09:38:21 of 2) [code = SHINGLES VACCINES (1 of 2)] Future Scheduled 2022-07-05 INFL[facility]ENZA VACCINE [facility] Test 09:38:21 [code = INFLUENZA VACCINE] Encounters Start End Encounter Admission Attending Care Care Encounter Source Date/Time Date/Time Type Type Clinicians Facility Department ID 2021-04-07 2021-04-07 [facility] [id number] [place] 00:00:00 00:00:[address] [facility] [address] 2021-03-25 2021-03-25 Outpatient [place] [id number] [place] 00:00:00 00:00:00 [facility] [address] 2021-03-22 2021-03-22 Outpatient [facility] [id number] [place] 00:00:00 00:00:00 [facility] [address] 2021-03-15 2021-03-15 Outpatient [facility] [id number] [place] 00:00:00 00:00:00 [facility] [address] 2020-01-31 2020-02-04 Inpatient [facility] [id number] [place] 00:00:00 00:00:[address] [facility] [address] Results Test Description Test Time Test Comments Results Result Comments Source SARS-CoV-2 (COVID-19) RNA [Presence] in Respiratory sp ecimen by 2021-03-23 02:40:28 SERGIO with probe detection Test Item Value Reference Range Interpretation Comme nts SARS-CoV-2 (COVID-19) RNA [Presence] in Respiratory Not detected No t-Detected specimen by SERGIO with probe detection (test code = 51057-6) Whether patient is employed in a healthcare setting (test code = 90163-8) Whether the patient has symptoms related to condition of interest (test code = 69257-1) Patient was hospitalized because of this condition (test code = 39066-1) Whether the patient was admitted to intensive care unit (ICU) for condition of interest (test code = 72573-7) Whether patient resides in a congregate care setting (test code = 19136-3) [facility]
[2023-09-01 18:23] LABS: Absolute Lymphocytes (CBC) 0.5 K/uL (0.7-4.9); Hematocrit 31.1 % (39.6-49.0); MCV 87.4 fL (80-100); MPV 7.9 fL (7.6-11.3); Platelets 244 thou/uL (152-406); RBC Red Blood Cell Count 3.55 M/uL (4.33-5.43)
[2023-09-01 18:38] LABS: Protime INR 1.09
[2023-09-01 18:46] LABS: ALT/SGPT 14 U/L (16-61); AST/SGOT 25 U/L (15-37); Albumin 2.1 g/dL (3.4-5.0); Alkaline Phosphatase 73 U/L (45-117); BUN Blood Urea Nitrogen 42 mg/dL (7-18); Bicarbonate 29 mEq/L (21-32); Bilirubin Direct 0.2 mg/dL (0-0.2); Bilirubin Indirect, Calculated 0.3 mg/dL (0.2-0.8); Bilirubin Total 0.5 mg/dL (0.2-1.0); Glucose Level 69 mg/dL (74-106); Lipase 27 U/L (13-75); Magnesium 2.2 mg/dL (1.6-2.4); Potassium 4.1 mEq/L (3.5-5.1); Protein, Total 6.1 g/dL (6.4-8.2); SARS-CoV-2 Antigen Rapid Res Negative (Negative); Sodium Level 141 mEq/L (136-145)
[2023-09-01 18:57] LABS: Glomerular Filtration Rate 5 ml/min (=/>90)
[2023-09-01 18:58] LABS: NT PRO-BNP > 175000 pg/mL (<450)
--- NOTE | 2023-09-01 19:03 | RAD REPORT ---
EXAM DESCRIPTION: [place] Single View09/01/2023 6:20 pm CLINICAL HISTORY: Chest pain COMPARISON: 2020 FINDINGS: [id number] bilateral pulmonary opacities Heart is mildly enlarged. Small bilateral pleural effusions are probably present. IMPRESSION: These findings most likely represent CHF
--- NOTE | 2023-09-01 19:14 | EDPHYS ---
Physician Documentation [facility] Name: Kel Clark Age: 78 yrs Sex: Male : 1945 Arrival Date: 09/01/2023 Time: 17:31 Bed 20 Private MD: ED Physician Salomon Marshall HPI: 09/01 17:48 This 78 yrs old Male presents to ER via Wheelchair with complaints of cp Shortness Of Breath. 17:48 The patient has shortness of breath at rest. Onset: The symptoms/episode began/occurred cp 2 week(s) ago. 17:48 Duration: The symptoms are continuous, and are steadily getting worse. cp 17:48 Associated signs and symptoms: Pertinent positives: chest pain, Pertinent negatives: cp non-productive cough, productive cough, diaphoresis, fever, vomiting. Severity of symptoms: in the emergency department the symptoms are unchanged despite home interventions. Historical: - Allergies: 17:47 No Known Allergies; tm6 - Home Meds: 17:39 Januvia 100 mg Oral tab 1 tab once daily [Active]; ld1 17:47 hydralazine 100 mg Oral tablet 1 tab 2 times per day [Active]; calcitriol 0.5 mcg oral tm6 capsule 2 caps once [Active]; potassium chloride 20 mEq Oral Tablet, ER Particles/Crystals 1 tab daily [Active]; terbinafine HCl 250 mg oral tablet 1 tab q48h [Active]; furosemide 40 mg Oral tablet 1 tab 2 times per day [Active]; losartan-hydrochlorothiazide 50-12.5 mg oral tablet 1 tab daily [Active]; clonidine HCl 0.1 mg Oral tablet 1 tab 2 times per day [Active]; doxazosin 1 mg oral tablet 3 tabs twice daily [Active]; aspirin 81 mg Oral capsule 1 cap daily [Active]; Farxiga 5 mg oral tablet 1 tab daily [Active]; 17:51 CoQ-10 100 mg oral capsule 1 cap daily [Active]; heparin (porcine) injection [Active]; tm6 - PMHx: 17:39 cardiac stent; Diabetes - IDDM; Hypertension; High Cholesterol; PERITONEAL DIALYSIS; ld1 - Immunization history:: Adult Immunizations up to date. - Social history:: Smoking status: Patient denies any tobacco usage or history of. Patient/guardian denies using alcohol. ROS: 17:50 Constitutional: Negative for body aches, chills, fever, poor PO intake, cp 17:50 Cardiovascular: Positive for chest pain, edema, cp 17:50 Respiratory: Positive for shortness of breath, at rest. 17:50 Eyes: Negative for injury, pain, redness, and discharge, cp 17:50 ENT: Negative for drainage from ear(s), ear pain, sore throat, difficulty swallowing, cp difficulty handling secretions, 17:50 Abdomen/GI: Negative for abdominal pain, 17:50 Neuro: Negative for altered mental status, headache, syncope, weakness, 17:50 All other systems are negative, Exam: 17:54 ECG was reviewed by the Attending Physician. cp 17:55 Constitutional: The patient appears in no acute distress, alert, awake, cp non-diaphoretic, non-toxic, well developed, well nourished, 17:55 Head/Face: Normocephalic, atraumatic. cp 17:55 Eyes: Periorbital structures: appear normal, Conjunctiva: normal, no exudate, no injection, Sclera: no appreciated abnormality, Lids and lashes: appear normal, bilaterally, 17:55 ENT: External ear(s): are unremarkable, Nose: is normal, Mouth: Lips: moist, Oral mucosa: pink and intact, moist, Posterior pharynx: is normal, airway is patent, no erythema, no exudate, 17:55 Chest/axilla: Inspection: normal, cp 17:55 Cardiovascular: Rate: tachycardic, Rhythm: regular, Edema: ankle edema, that is mild, JVD: is not appreciated, 17:55 Respiratory: the patient does not display signs of respiratory distress, Respirations: labored breathing, that is mild, Breath sounds: decreased breath sounds, that are mild, throughout, stridor, is not appreciated, wheezing: is not appreciated, 17:55 Abdomen/GI: Inspection: abdomen appears normal, Palpation: abdomen is soft and non-tender, in all quadrants, 17:55 Back: pain, is absent, ROM is normal, 17:55 Skin: cellulitis, is not appreciated, no rash present. 17:55 Neuro: Orientation: to person, place \T\ time. Mentation: is normal, Motor: moves all fours, strength is normal, Sensation: is normal, Vital Signs: 17:43 BP 146 / 84; Pulse 105; Resp 17; Temp 98.6(TE); Pulse Ox 96% ; Weight 76.2 kg; Height 5 tm6 ft. 7 in. ; Pain /10; 19:10 BP 146 / 78; Pulse 106; Resp 25; Pulse Ox 98% on R/A; nj1 20:00 BP 158 / 89; Pulse 106; Resp 24; Pulse Ox 95% on R/A; nj1 21:01 BP 151 / 86; Pulse 108; Resp 26; Pulse Ox 97% ; nj1 21:30 BP 151 / 86; Pulse 110; Resp 27 S; Pulse Ox 96% on R/A; km8 22:14 BP 138 / 88; Pulse 108; Resp 26 S; Pulse Ox 96% on R/A; 8 22:18 BP 138 / 88; Pulse 108; Resp 24 S; Pulse Ox 98% on R/A; 8 22:40 Weight 92.9 kg; pf1 09/02 00:01 BP 138 / 76; Pulse 104; Resp 24 S; Pulse Ox 97% on R/A; 8 01:22 BP 146 / 83; Pulse 102; Resp 20 S; Pulse Ox 98% on R/A; 8 09/01 17:43 Body Mass Index 26.31 (92.90 kg, 170.18 cm) tm6 09/01 17:43 Pain Scale: Adult tm6 MDM: 09/01 17:54 Patient medically screened. 20:00 Data reviewed: vital signs, nurses notes, lab test result(s), EKG, radiologic studies, cp plain films, ultrasound, I have discussed the patient's presentation/case with the attending Emergency Department Physician; and as a result, I will transfer patient. 20:00 Care significantly affected by the following chronic conditions: Diabetes, cp Hypertension, Congestive Heart Failure, Chronic Kidney Disease. 09/01 17:50 Order name: Basic Metabolic Panel; Complete Time: 19:04 cp 09/01 19:04 Interpretation: Normal except: GLUC 69; BUN 42; CRE 10.40; GFR 5. cp 09/01 17:50 Order name: CBC with Diff; Complete Time: 18:38 cp 09/01 18:38 Interpretation: Normal except: RBC 3.55; HGB 10.1; HCT 31.1; RDW 16.5; BRENNON% 77.9; LYM% cp 10.0; LYMA 0.5. 09/01 17:50 Order name: LFT's; Complete Time: 19:04 cp 09/01 18:54 Interpretation: Normal except: ALT 14; TP 6.1; ALB 2.1; GLOB 4.0; A/G 0.5. cp 09/01 17:50 Order name: Magnesium; Complete Time: 19:04 cp 09/01 17:50 Order name: NT PRO-BNP; Complete Time: 19:04 cp 09/01 19:04 Interpretation: Abnormal: NT PRO-BNP > 736198. cp 09/01 17:50 Order name: PT-INR; Complete Time: 18:53 cp 09/01 17:50 Order name: Troponin HS; Complete Time: 19:04 cp 09/01 18:54 Interpretation: Abnormal: Troponin HS 7738.2. cp 09/01 17:50 Order name: Lipase; Complete Time: 19:04 09/01 17:50 Order name: Influenza Screen (a \T\ B); Complete Time: 18:57 09/01 18:21 Order name: SARS-COV-2 Antigen Rapid; Complete Time: 18:53 EDMS 09/01 19:12 Order name: Lactate w/ 2H reflex if indic.; Complete Time: 20:41 cp 09/01 19:12 Order name: Blood Culture Adult (2) cp 09/01 19:12 Order name: Ptt, Activated; Complete Time: 20:41 09/01 19:45 Order name: Glucose, Ancillary Testing; Complete Time: 19:53 EDMS 09/01 19:54 Interpretation: Reviewed. 09/01 21:42 Order name: Glucose, Ancillary Testing; Complete Time: 22:24 EDMS 09/01 22:24 Interpretation: Reviewed. 09/01 23:53 Order name: Ptt, Activated km8 09/01 17:50 Order name: XRAY Chest (1 view); Complete Time: 19:53 09/01 19:53 Interpretation: Report review. 09/01 17:50 Order name: US Extremity Venous W Compression Lui; Complete Time: 19:53 cp 09/01 19:53 Interpretation: Report reviewed. 09/01 17:50 Order name: EKG; Complete Time: 17:50 09/01 17:50 Order name: Cardiac monitoring; Complete Time: 18:10 cp 09/01 17:50 Order name: EKG - Nurse/Tech; Complete Time: 17:52 cp 09/01 17:50 Order name: IV Saline Lock; Complete Time: 18:10 cp 09/01 17:50 Order name: Labs collected and sent; Complete Time: 18:10 cp 09/01 17:50 Order name: O2 Per Protocol; Complete Time: 17:52 cp 09/01 17:50 Order name: O2 Sat Monitoring; Complete Time: 17:52 cp 09/01 19:12 Order name: Accucheck Blood Glucose; Complete Time: 20:09 cp EC:54 Rate is 105 beats/min. Rhythm is regular. QRS interval is prolonged at 126 msec. QT cp interval is normal. T waves are Inverted in leads I, II, aVL. Interpreted by me. Reviewed by me. Administered Medications: 19:30 Drug: Aspirin PO Chewable Tablet 324 mg PO once; 81 mg tablets x 4 Route: PO; [facility] 21:17 Follow up: Response: No adverse reaction [facility] 19:35 Drug: D10 in Water IVP 250 ml IVP once Route: IVP; Site: left antecubital; [facility] 21:00 Follow up: Response: No adverse reaction; Blood sugar is elevated [facility] 19:46 Drug: Furosemide IVP 40 mg IVP once; give over 2 minutes Route: IVP; Site: right [facility] antecubital; 21:17 Follow up: Response: No adverse reaction [facility] 19:50 Drug: Heparin (TX Drip) 12 units/kg/hr - ([place] [address] units, D5W IV 500 ml) IV at [facility] calculated rate Per protocol; Max initial rate 1000 units/hr {Co-Signature: [email or web address] (Lucila Barrios RN).} Route: IV; Rate: calculated rate; Site: right antecubital; 22:48 Follow up: Rate change 1000 units/hr [facility] 09/02 00:20 Follow up: Rate change 1100 units/hr [facility] 01:51 Follow up: IV Status: Infusion continued upon transfer [facility] 09/01 20:04 Not Given (Patient Refused): fentanyl (pf)25 mcg IVP once [facility] 21:17 Drug: Furosemide IVP 20 mg IVP once; give over 2 minutes Route: IVP; Site: left nj1 antecubital; 22:08 Follow up: Response: No adverse reaction km8 Disposition Summary: 09/01/23 19:14 Transfer Ordered Notes: Transfer Location: [facility] cp Reason: Higher level of care cp Condition: Stable cp Problem: new cp Symptoms: have improved cp Accepting Physician: DR Smith(09/02/23 01:50) km8 Diagnosis - Non ST elevation [place] cp - Unspecified combined systolic (congestive) and diastolic (congestive) heart failure cp - 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 EDMS EDMS 19:04 18:53 Normal except: GLUC 69; BUN 42. cp cp 19:14 19:14 Doctor cp cp 21:12 19:14 Doctor cp cp 09/02 01:50 09/01 21:12 DR Smith cp km8
--- NOTE | 2023-09-01 19:14 | ER ---
Nurse's Notes [facility] Name: Kel Clark Age: 78 yrs Sex: Male : 1945 Arrival Date: 09/01/2023 Time: 17:31 Bed 20 Private MD: Diagnosis: Non ST elevation OK;Unspecified combined systolic (congestive) and diastolic (congestive) heart failure;Hypertensive heart and chronic kidney disease with heart failure and with stage 5 chronic kidney disease, or end stage renal disease Presentation: 09/01 17:43 Chief complaint: Patient states: difficult to breathe, nausea and vomiting. Coronavirus tm6 screen: Vaccine status: Patient reports receiving the 2nd dose of the covid vaccine. Client denies travel out of the [place] in the last 14 days. At this time, unable to obtain information related to travel outside the [place] At this time, the client does not indicate any symptoms associated with coronavirus-19. Ebola Screen: Patient negative for fever greater than or equal to 101.5 degrees Fahrenheit, and additional compatible Ebola Virus Disease symptoms Patient denies exposure to infectious person. Patient denies travel to an Ebola-affected area in the 21 days before illness onset. No symptoms or risks identified at this time. Initial Sepsis Screen: Does the patient meet any 2 criteria? No. Patient's initial sepsis screen is negative. Does the patient have a suspected source of infection? No. Patient's initial sepsis screen is negative. Initial Sepsis Screen: Does the patient meet any 2 criteria? HR > 90 bpm. Risk Assessment: Do you want to hurt yourself or someone else? Patient reports no desire to harm self or others. Onset of symptoms was August 22, 2023. 17:43 Method Of Arrival: Wheelchair tm6 17:43 Acuity: SAMEER 3 tm6 Triage Assessment: 17:43 General: Appears in no apparent distress. Behavior is calm, cooperative, appropriate tm6 for age. Pain: Complains of pain in chest. Neuro: Level of Consciousness is awake, alert, obeys commands, Oriented to person, place, time, situation. Cardiovascular: Reports chest pain, Capillary refill < 3 seconds Patient's skin is warm and dry. Respiratory: Reports shortness of breath Onset: The symptoms/episode began/occurred two weeks, the patient has mild shortness of breath. Historical: - Allergies: 17:47 No Known Allergies; tm6 - Home Meds: 17:39 Januvia 100 mg Oral tab 1 tab once daily [Active]; ld1 17:47 hydralazine 100 mg Oral tablet 1 tab 2 times per day [Active]; calcitriol 0.5 mcg oral tm6 capsule 2 caps once [Active]; potassium chloride 20 mEq Oral Tablet, ER Particles/Crystals 1 tab daily [Active]; terbinafine HCl 250 mg oral tablet 1 tab q48h [Active]; furosemide 40 mg Oral tablet 1 tab 2 times per day [Active]; losartan-hydrochlorothiazide 50-12.5 mg oral tablet 1 tab daily [Active]; clonidine HCl 0.1 mg Oral tablet 1 tab 2 times per day [Active]; doxazosin 1 mg oral tablet 3 tabs twice daily [Active]; aspirin 81 mg Oral capsule 1 cap daily [Active]; Farxiga 5 mg oral tablet 1 tab daily [Active]; 17:51 CoQ-10 100 mg oral capsule 1 cap daily [Active]; heparin (porcine) injection [Active]; tm6 - PMHx: 17:39 cardiac stent; Diabetes - IDDM; Hypertension; High Cholesterol; PERITONEAL DIALYSIS; ld1 - Immunization history:: Adult Immunizations up to date. - Social history:: Smoking status: Patient denies any tobacco usage or history of. Patient/guardian denies using alcohol. Screenin:13 [facility] ED Fall Risk Assessment (Adult) Score/Fall Risk Level 0 - 2 = Low Risk nj Oriented to surroundings, Maintained a safe environment, Hourly rounding (assess needs \T\ fall precautionary measures) done. Abuse screen: Denies threats or abuse. Denies injuries from another. Nutritional screening: No deficits noted. Tuberculosis screening: No symptoms or risk factors identified. Assessment: 19:12 General: Appears in no apparent distress. comfortable, Behavior is calm, cooperative, nj1 appropriate for age. Pain: Denies pain. Neuro: Level of Consciousness is awake, alert, obeys commands, Oriented to person, place, time, situation. Cardiovascular: Rhythm is sinus tachycardia Chest pain is denied. Respiratory: Reports shortness of breath Airway is patent Respiratory effort is even, unlabored. GI: Patient currently denies nausea. 20:00 Reassessment: Patient appears in no apparent distress at this time. No changes from nj1 previously documented assessment. Patient and/or family updated on plan of care and expected duration. Pain level reassessed. Patient is alert, oriented x 3, equal unlabored respirations, skin warm/dry/pink. Patient denies pain at this time. 21:00 Reassessment: Patient appears in no apparent distress at this time. No changes from nj1 previously documented assessment. Patient and/or family updated on plan of care and expected duration. Pain level reassessed. Patient is alert, oriented x 3, equal unlabored respirations, skin warm/dry/pink. 22:18 Reassessment: Patient appears in no apparent distress at this time. No changes from km8 previously documented assessment. Patient and/or family updated on plan of care and expected duration. Pain level reassessed. Patient is alert, oriented x 3, equal unlabored respirations, skin warm/dry/pink. 23:29 General: attempted to call report to [facility] ICU, nurse ask for me to call [facility] back in 5 mins. 23:51 General: report called to SUNNY Breen at [facility] ICU. [facility] Vital Signs: 17:43 BP 146 / 84; Pulse 105; Resp 17; Temp 98.6(TE); Pulse Ox 96% ; Weight 76.2 kg; Height 5 tm6 ft. 7 in. ; Pain 6/10; 19:10 BP 146 / 78; Pulse 106; Resp 25; Pulse Ox 98% on R/A; nj1 20:00 BP 158 / 89; Pulse 106; Resp 24; Pulse Ox 95% on R/A; nj1 21:01 BP 151 / 86; Pulse 108; Resp 26; Pulse Ox 97% ; nj1 21:30 BP 151 / 86; Pulse 110; Resp 27 S; Pulse Ox 96% on R/A; km8 22:14 BP 138 / 88; Pulse 108; Resp 26 S; Pulse Ox 96% on R/A; km8 22:18 BP 138 / 88; Pulse 108; Resp 24 S; Pulse Ox 98% on R/A; km8 22:40 Weight 92.9 kg; pf1 09/02 00:01 BP 138 / 76; Pulse 104; Resp 24 S; Pulse Ox 97% on R/A; km8 01:22 BP 146 / 83; Pulse 102; Resp 20 S; Pulse Ox 98% on R/A; km8 09/01 17:43 Body Mass Index 26.31 (92.90 kg, 170.18 cm) tm6 09/01 17:43 Pain Scale: Adult tm6 ED Course: 09/01 17:35 Patient arrived in ED. ts1 17:38 Salomon Calvin PA is PHCP. cp 17:38 Salomon Marshall MD is Attending Physician. cp 17:43 Arm band placed on left wrist. tm6 17:45 Triage completed. tm6 18:09 Influenza Screen (a \T\ B) Sent. tm6 18:13 Inserted saline lock: 22 gauge in left antecubital area, using aseptic technique. Blood sm8 collected. 18:21 XRAY Chest (1 view) In Process Unspecified. EDMS 18:39 US Extremity Venous W Compression Lui In Process Unspecified. EDMS 18:53 Notified Nurse Practitioner and/or Physician Compressor Operator Adjuster of a critical lab result(s), hb TROP 7738.2. 19:09 Annamarie Ontiveros, RN is Primary Nurse. nj1 19:13 Patient has correct armband on for positive identification. Bed in low position. Call nj1 light in reach. Adult w/ patient. Provided Education on: call light, fall precautions. 19:14 No provider procedures requiring assistance completed. nj1 20:05 Initiated transfer to [facility], spoke with Karen. 20:20 Karen called from [facility] to stated that they needed to decline due to capacity, wm but she would need to contact [facility] to determine if they will have a bed soon. 20:42 Karen called and stated [facility] will officially decline due to capacity. Stated they have wm a bed in [place], will start transfer to there. Salomon Calvin verified with Pt that it was okay to go to [place]. 21:13 Report given to Hiwot CORREA. nj1 21:14 Primary Nurse role handed off by Annamarie Ontiveros, SUNNY km8 21:14 Hiwot Acharya, SUNNY is Primary Nurse. km8 21:25 Pt accepted for transfer to [facility] ICU: 256 by Mary Ann Chavez \T\ 3 per Karen King. 21:50 pt requesting to be placed in recliner to sit up; family in room with pt. km8 22:20 [facility] declined due to no available truck, [facility] accepted for transport with ETA \T\ 0000. 09/02 00:01 Ptt, Activated Sent. km8 00:24 Called [facility] to get updated ETA, they apologized and stated 0100 now. 01:50 Patient transferred, IV remains in place. km8 Administered Medications: 09/01 19:30 Drug: Aspirin PO Chewable Tablet 324 mg PO once; 81 mg tablets x 4 Route: PO; nj1 21:17 Follow up: Response: No adverse reaction nj1 19:35 Drug: D10 in Water IVP 250 ml IVP once Route: IVP; Site: left antecubital; nj1 21:00 Follow up: Response: No adverse reaction; Blood sugar is elevated km8 19:46 Drug: Furosemide IVP 40 mg IVP once; give over 2 minutes Route: IVP; Site: right [facility] antecubital; 21:17 Follow up: Response: No adverse reaction ma1 19:50 Drug: Heparin (OK Drip) 12 units/kg/hr - ([place] [address] units, D5W IV 500 ml) IV at [facility] calculated rate Per protocol; Max initial rate 1000 units/hr {Co-Signature: lg3 (Lucila Barrios RN).} Route: IV; Rate: calculated rate; Site: right antecubital; 22:48 Follow up: Rate change 1000 units/hr 8 09/02 00:20 Follow up: Rate change 1100 units/hr [facility] 01:51 Follow up: IV Status: Infusion continued upon transfer [facility] 09/01 20:04 Not Given (Patient Refused): fentanyl (pf)25 mcg IVP once [facility] 21:17 Drug: Furosemide IVP 20 mg IVP once; give over 2 minutes Route: IVP; Site: left [facility] antecubital; 22:08 Follow up: Response: No adverse reaction 8 Medication: 19:14 VIS not applicable for this client. nj1 Outcome: 19:14 ER care complete, transfer ordered by MD. bello 09/02 01:50 Transferred by ground EMS to [facility], Transfer form completed. km8 Condition: good Discharge instructions given to patient, family, Instructed on the need for transfer, Demonstrated understanding of instructions, 01:50 Patient left the ED. km8 Signatures: Dispatcher [employer] EDMS Salomon Calvin PA PA cp Baxter, Heather, RN RN Mariluz Alvarez, RN RN ld1 Rand Pichardo Pamala, RN RN pf1 Annamarie Ontiveros, RN RN nj1 Rosa Quinones PAS PAS ts1 Benjamín, Ria [facility] Hiwot Acharya, RN RN 8 Benny Duval, RN RN 6 Lucila Barrios RN lg3 Corrections: (The following items were deleted from the chart) 09/01 18:14 18:10 Inserted saline lock: 22 gauge in left antecubital area, using aseptic technique. [facility] Blood collected. [email or web address]] 18:21 18:09 SARS-COV-2 RT PCR+MOL.LAB.TATIZ drawn and sent. [address] 21:50 21:50 Reassessment: [place] [address] 23:44 23:29 General: report called to .... from [facility] ICU. [place] [address] 23:52 23:29 General: report called to .... from [facility] ICU. [place] [id number]
--- NOTE | 2023-09-01 19:36 | RAD REPORT ---
EXAM DESCRIPTION: USExtrem Venous W Compress Bil09/01/2023 6:37 pm CLINICAL HISTORY: Leg pain COMPARISON: none FINDINGS: The common femoral, greater saphenous, popliteal and posterior tibial veins bilaterally a re compressible and demonstrate augmentation. Right superficial femoral vein is patent. Doppler demonstrates good flow. Echogenic material consistent with acute thrombus is present within the left superficial femoral vein . The vein is partially compressible Grayscale, color and spectral analysis performed on all vessels IMPRESSION: Acute thrombus within the left superficial femoral vein
[2023-09-01] MEDS ORDERED: ASPIRIN 81 MG CHEWABLE TABLET ONE (19:39)
[2023-09-01] MEDS ORDERED: FUROSEMIDE 40 MG/4 ML VIAL ONE (19:40)
[2023-09-01] MEDS ORDERED: FENTANYL CITR 100 MCG/2 ML ONE (19:40)
[2023-09-01] MEDS ORDERED: D10W 250 ML IV ONE (19:41)
[2023-09-01] MEDS ORDERED: HEPARIN/D5W 25,000 UNIT/500 ML BAG IV ONE (19:41)
[2023-09-01] MEDS ORDERED: FUROSEMIDE 20 MG/ 2ML VIAL ONE (21:19)
[2023-09-02 02:09] VITALS: TEMP 98.6
[2023-09-02 02:27] VITALS: BP 146/83; O2SAT 98
--- NOTE | 2023-09-05 08:02 | EKG ---
Test Date: 2023-09-01 Test Time: 17:46:02 Media Sales Executive: Rocio FALLON MEASUREMENT RESULTS: Intervals: Rate: 105 NM: QRSD: 126 QT: 414 QTc: 547 [place]: P: NM: QRS: -14 T: 141 INTERPRETIVE STATEMENTS: Sinus tachycardia with PVCs Nonspecific intraventricular block Cannot rule out Anteroseptal infarct, age undetermined T wave abnormality, consider inferolateral ischemia Abnormal ECG Compared to ECG 02/23/2021 14:50:03 Ventricular premature complex(es) now present Myocardial infarct finding now present T-wave abnormality now present Possible ischemia now present ST (T wave) deviation no longer present Prolonged QT interval no longer present Electronically Signed On 09-05-23 07:54:32 CDT by Rayshawn Trejo
== END 2023-09-02 01:50 | disposition short-term general hospital (02) ==
LOC: ER 17:31
DX: I21.4 Non-ST elevation (NSTEMI) myocardial infarction (principal); I50.40 Unspecified combined systolic (congestive) and diastolic (congestive) heart failure; E11.22 Type 2 diabetes mellitus with diabetic chronic kidney disease; I13.2 Hypertensive heart and chronic kidney disease with heart failure and with stage 5 chronic kidney disease, or end stage renal disease; N18.5 Chronic kidney disease, stage 5; Z99.2 Dependence on renal dialysis; Z95.818 Presence of other cardiac implants and grafts; Z79.82 Long term (current) use of aspirin; Z11.52 Encounter for screening for COVID-19
CPT/HCPCS: 93005; 87040 ×2; 85025; 80048; 36415; 83735; 85610; 82947 ×2; 80076; 83605; 85730 ×2; 84484; 83690; 83880; 87804 ×2; 71045; 93970; 99285; 87811; J1940 ×2; J3010

== ENCOUNTER → 2024-01-20 | Emergency (ER) | payer OTHER ==
[~2024-01-20] MED LIST changes: -EPOETIN ALFA-EPBX 10,000 UNIT/ML VIAL ONE; +HYDROCODONE/APAP 5/325 MG TAB ONE; +ONDANSETRON 4 MG (ODT) TAB ONE
[2024-01-21 00:08] LABS: Specific Gravity 1.013 (1.005-1.030); Sqamous Epithelial <5 /HPF (None Seen); Urine Bacteria <20 /HPF (<20); Urine Bilirubin NEGATIVE (Negative); Urine Blood 1+ (Negative); Urine Clarity Extremely Turbid (Clear); Urine Color Light-Yellow (Yellow); Urine Crystals Unidentified Few /HPF (None Seen); Urine Culture Reflex Order REFLEXED; Urine Glucose 3+ (Negative); Urine Ketones NEGATIVE (Negative); Urine Microscopic Reflex YN ORDER UMIC; Urine Mucus Slight /HPF (None Seen); Urine Nitrite NEGATIVE (Negative); Urine Protein 3+ (Negative); Urine Urobilinogen Normal (Normal); Urine WBC >50 /HPF (<5); Urine WBC Clump Occasional /HPF (None Seen); Urine Yeast (Budding) Occasional /HPF (None Seen)
[2024-01-21 00:34] LABS: Absolute Eosinophils 0.5 K/uL (0-0.5); Absolute Lymphocytes (CBC) 1.1 K/uL (0.7-4.9); Absolute Monocytes 0.6 K/uL (0.1-1.3); Absolute Neutrophil 2.5 K/uL (1.8-8.0); Basophils % 0.7 % (0-1.3); Hemoglobin 10.1 g/dL (13.6-17.9); MCH 30.5 pg (27.0-35.0); MCHC 33.6 g/dL (32.0-36.0); MCV 90.5 fL (80-100); MPV 8.6 fL (7.6-11.3); Monocytes % 13.5 % (3.3-12.3); Neutrophils % 51.8 % (41.7-73.7); Platelets 161 thou/uL (152-406); RBC Red Blood Cell Count 3.32 M/uL (4.33-5.43)
[2024-01-21 00:47] LABS: Albumin 3.4 g/dL (3.4-5.0); Anion Gap 14.7 mEq/L (5.0-15.0); Bilirubin Total 0.3 mg/dL (0.2-1.0); Globulin 3.5 g/dL (2.3-3.5); Potassium 4.7 mEq/L (3.5-5.1); Protein, Total 6.9 g/dL (6.4-8.2)
--- NOTE | 2024-01-21 04:08 | ER ---
Nurse's Notes [facility] Name: Kel Clark Age: 79 yrs Sex: Male : 1945 Arrival Date: 01/20/2024 Time: 23:14 Bed 7 Private MD: Jani Escobar Diagnosis: UTI/ Urinary tract infection, site not specified;Abdominal discomfort, abdominal musculature weakness Presentation: 01/19 23:45 Chief complaint: Patient states: I am having right lower quadrant pain that radiates to jb4 my right lower back and it feels like my abdomen is swelling. Coronavirus screen: At this time, the client does not indicate any symptoms associated with coronavirus-19. Ebola Screen: No symptoms or risks identified at this time. Initial Sepsis Screen: Does the patient meet any 2 criteria? No. Patient's initial sepsis screen is negative. Does the patient have a suspected source of infection? No. Patient's initial sepsis screen is negative. Risk Assessment: Do you want to hurt yourself or someone else? Patient reports no desire to harm self or others. Onset of symptoms was January 20, 2024. Transition of care: patient was not received from another setting of care. 23:45 Method Of Arrival: Ambulatory jb4 23:45 Acuity: SAMEER 3 jb4 Triage Assessment: 23:48 General: Appears in no apparent distress. comfortable, Behavior is calm, cooperative, jb4 appropriate for age. Pain: Complains of pain in right lower quadrant Pain radiates to right low back Pain currently is 5 out of 10 on a pain scale. at worst was 7 out of 10 on a pain scale. EENT: No signs and/or symptoms were reported regarding the EENT system. Neuro: Level of Consciousness is awake, alert, obeys commands, Oriented to person, place, time, situation. Cardiovascular: Patient's skin is warm and dry. Respiratory: Airway is patent Respiratory effort is even, unlabored, Respiratory pattern is regular, symmetrical. GI: Abdomen is flat, distended, Abd is soft X 4 quads Abd is non tender in right upper quadrant, left upper quadrant and left lower quadrant Abdomen is tender to palpation in right lower quadrant Reports lower abdominal pain. : No signs and/or symptoms were reported regarding the genitourinary system. Derm: Skin is intact, Skin is pink, warm \T\ dry. Musculoskeletal: Circulation, motion, and sensation intact. Range of motion: intact in all extremities. Historical: - Allergies: 23:48 No Known Allergies; jb4 - PMHx: 23:48 cardiac stent; High Cholesterol; Hypertension; Diabetes - IDDM; PERITONEAL DIALYSIS; jb4 dialysis TTS; - PSHx: 23:48 Double bipass (PERITONEAL DIALYSIS ); jb4 - Immunization history:: Adult Immunizations up to date. - Social history:: Smoking status: Patient denies any tobacco usage or history of. Screenin:52 [facility] ED Fall Risk Assessment (Adult) History of falling in the last 3 months, jb4 including since admission No falls in past 3 months (0 pts) Confusion or Disorientation No (0 pts) Intoxicated or Sedated No (0 pts) Impaired Gait No (0 pts) Mobility Assist Device Used No (0 pt) Altered Elimination No (0 pt) Score/Fall Risk Level 0 - 2 = Low Risk Oriented to surroundings, Maintained a safe environment. Abuse screen: Denies threats or abuse. Nutritional screening: No deficits noted. Tuberculosis screening: No symptoms or risk factors identified. Assessment: 23:52 Reassessment: see triage note. jb4 01/20 00:35 Reassessment: Patient appears in no apparent distress at this time. Patient and/or jb4 family updated on plan of care and expected duration. Pain level reassessed. Patient is alert, oriented x 3, equal unlabored respirations, skin warm/dry/pink. 01:30 Reassessment: Patient appears in no apparent distress at this time. Patient and/or jb4 family updated on plan of care and expected duration. Pain level reassessed. Patient is alert, oriented x 3, equal unlabored respirations, skin warm/dry/pink. 02:30 Reassessment: Patient appears in no apparent distress at this time. Patient and/or jb4 family updated on plan of care and expected duration. Pain level reassessed. Patient is alert, oriented x 3, equal unlabored respirations, skin warm/dry/pink. 03:30 Reassessment: Patient appears in no apparent distress at this time. Patient and/or jb4 family updated on plan of care and expected duration. Pain level reassessed. Patient is alert, oriented x 3, equal unlabored respirations, skin warm/dry/pink. 04:21 Reassessment: Patient appears in no apparent distress at this time. Patient and/or jb4 family updated on plan of care and expected duration. Pain level reassessed. Patient is alert, oriented x 3, equal unlabored respirations, skin warm/dry/pink. Vital Signs: 01/19 23:45 BP 163 / 56; Pulse 64; Resp 16; Temp 97.9; Pulse Ox 100% on R/A; Weight 84.82 kg (R); jb4 Height 5 ft. 7 in. (R); Pain /; 01/20 00:48 BP 136 / 54; Pulse 63; Resp 16; Pulse Ox 100% on R/A; jb4 01:45 BP 151 / 56; Pulse 60; Resp 16; Pulse Ox 100% on R/A; cm10 02:00 BP 161 / 58; Pulse 63; Resp 16; Pulse Ox 98% on R/A; cm10 03:00 BP 150 / 60; Pulse 64; Resp 16; Pulse Ox 94% on R/A; cm10 04:07 BP 161 / 64; Pulse 58; Resp 16; Pulse Ox 100% on R/A; cm10 03 23:45 Body Mass Index 29.29 (84.82 kg, 170.18 cm) jb4 01/19 23:45 Pain Scale: Adult jb ED Course: 01/19 23:20 Patient arrived in ED. mr 23:20 Jani Escobar DO is Private Physician. mr 23:27 Suzan Monge FNP-C is [facility]. kb 23:27 Vin Guzman MD is Attending Physician. kb 23:48 Triage completed. jb4 23:48 Arm band placed on right wrist. jb4 23:[address] via wheelchair. jb4 23:52 Patient has correct armband on for positive identification. Bed in low position. Call [facility] light in reach. Side rails up X 1. Provided Education on: expected wait times. 01/20 00:01 Urinalysis w/ reflexes Sent. jb4 00:12 CT Abd/Pelvis - Without Contrast In Process Unspecified. EDMS 00:19 Initial lab(s) drawn, by il, sent to lab. Inserted saline lock: 18 gauge in right jb4 antecubital area, using aseptic technique. Blood collected. 00:21 Urine Culture Sent. jb4 00:21 Lipase Sent. jb4 00:21 CMP Sent. jb4 00:21 CBC with Diff Sent. jb4 01:04 Stanley Thomas, RN is Primary Nurse. jb4 01:07 Door closed. Noise minimized. Lights dimmed. kmf 01:07 Pillow given. kmf 04:00 ED physician to see patient. cm10 04:07 Vin Guzman MD is Referral Physician. sp4 04:07 Jani Escobar DO is Referral Physician. sp4 04:21 No provider procedures requiring assistance completed. IV discontinued, intact, jb4 bleeding controlled, No redness/swelling at site. Pressure dressing applied. Administered Medications: 03:13 Drug: HYDROcodone-acetaminophen PO 5 mg-325 mg 1 tabs PO once Route: PO; jb4 03:13 Drug: Ondansetron PO 4 mg PO once Route: PO; jb4 Medication: 01/19 23:52 VIS not applicable for this client. jb4 Outcome: 01/20 04:08 Discharge ordered by . sp4 04:21 Discharged to home ambulatory, with family, jb4 04:21 Condition: stable 04:21 Discharge instructions given to patient, Instructed on discharge instructions, follow up and referral plans. no drinking with medication, no driving heavy equipment, medication usage, Demonstrated understanding of instructions, follow-up care, medications, Prescriptions given X 3, 04:22 Patient left the ED. jb4 Signatures: Dispatcher [employer] EDMS Suzan Monge, OWNER SPA DIRECTOR-C OWNER SPA DIRECTOR-Ckb DuongBrenda, Reg Reg mr Stanley Thomas, SUNNY CORREA jb4 Vin Guzman MD MD sp4 Lilly Fernández RN RN 10 Claudia Fuentes [facility] Corrections: (The following items were deleted from the chart) 01/19 23:49 23:48 PMHx: Dialysis; jb4 jb4
--- NOTE | 2024-01-21 04:08 | EDPHYS ---
Physician Documentation [facility] Name: Kel Clark Age: 79 yrs Sex: Male : 1945 Arrival Date: 01/20/2024 Time: 23:14 Bed 7 Private MD: Jani Escobar ED Physician Vin Guzman HPI: 01/20 00:06 This 79 yrs old Male presents to ER via Ambulatory with complaints of kb Abdominal Swelling. 00:06 Pt is an 79 year old male who presents for right sided abd pain that started about a kb month ago and is now radiating to back. Denies n/v/d/fever. States he noticed swelling to right abd today as well so he decided to come get it checked out. . Historical: - Allergies: 01/19 23:48 No Known Allergies; jb4 - PMHx: 23:48 cardiac stent; High Cholesterol; Hypertension; Diabetes - IDDM; PERITONEAL DIALYSIS; jb4 dialysis TTS; - PSHx: 23:48 Double bipass (PERITONEAL DIALYSIS ); jb4 - Immunization history:: Adult Immunizations up to date. - Social history:: Smoking status: Patient denies any tobacco usage or history of. ROS: 01/20 00:05 Constitutional: As per HPI kb Exam: 00:05 Constitutional: This is a well developed, well nourished patient who is awake, alert, kb and in no acute distress. Head/Face: Normocephalic, atraumatic. ENT: Moist Mucous membranes Cardiovascular: Regular rate Respiratory: Respirations even and unlabored. No increased work of breathing. Talking in full sentences Skin: Warm, dry with normal turgor. Normal color. MS/ Extremity: Pulses equal, no cyanosis. Neurovascular intact. Full, normal range of motion. Neuro: Awake and alert, GCS 15, oriented to person, place, time, and situation. Moves all extremities. Normal gait. 00:05 Abdomen/GI: Inspection: abdomen appears normal, Bowel sounds: normal, Palpation: soft, in all quadrants, moderate abdominal tenderness, in the right upper quadrant and right lower quadrant, Vital Signs: 01/19 23:45 BP 163 / 56; Pulse 64; Resp 16; Temp 97.9; Pulse Ox 100% on R/A; Weight 84.82 kg (R); jb4 Height 5 ft. 7 in. (R); Pain 03/15; 01/20 00:48 BP 136 / 54; Pulse 63; Resp 16; Pulse Ox 100% on R/A; jb4 01:45 BP 151 / 56; Pulse 60; Resp 16; Pulse Ox 100% on R/A; cm10 02:00 BP 161 / 58; Pulse 63; Resp 16; Pulse Ox 98% on R/A; cm10 03:00 BP 150 / 60; Pulse 64; Resp 16; Pulse Ox 94% on R/A; cm10 04:07 BP 161 / 64; Pulse 58; Resp 16; Pulse Ox 100% on R/A; cm10 01/19 23:45 Body Mass Index 29.29 (84.82 kg, 170.18 cm) jb4 01/19 23:45 Pain Scale: Adult jb4 MDM: 01/19 23:27 Patient medically screened. kb 01/20 00:07 Data reviewed: vital signs, nurses notes. kb 00:46 Transition of care: After a detail discussion of the patient's case, care is kb transferred to Vin Guzman MD. 04:02 ED course: EXAM DESCRIPTION: Abdomen Pelvis Wo Contrast CLINICAL HISTORY: 79 years sp4 Male, RLQ AND BACK PAIN, ABD SWELLING TECHNIQUE: Helical CT axial images are obtained from the lung bases to the pubic symphysis without IV contrast. No oral contrast was administered. Multiplanar reconstruction. This exam was performed according to our departmental dose-optimization program, which includes automated exposure control, adjustment of the mA and/or kV according to patient size and/or use of iterative reconstruction technique. COMPARISON: None. FINDINGS: LUNG BASES: No basilar consolidation or effusions. LIVER: Normal in size. Normal attenuation. No focal masses. HEPATOBILIARY: Normal-appearing gallbladder. No intra- or extrahepatic ductal dilatation. SPLEEN: Normal size. Sub-5 mm calcified granulomata. PANCREAS: Normal size and contour. No focal mass. ADRENAL GLANDS: Normal size. No adrenal masses. KIDNEYS: No obstructing calculi or hydronephrosis bilaterally. Mild bilateral renal atrophy. Moderate renal vascular callus lesions. No nephrolithiasis. A few small simple right renal cysts with the largest within the lower pole measuring 1.8 cm; no further workup is warranted. BOWEL AND MESENTERY: No small or large bowel dilatation. Pandiverticulosis. Normal appendix. No abnormal mesenteric lymphadenopathy. No free fluid or pneumoperitoneum. RETROPERITONEUM: Normal caliber abdominal aorta without aneurysm. Severe arteriosclerosis of the medium caliber vessels. No abnormal retroperitoneal lymphadenopathy. PELVIS: Urinary bladder is suboptimally distended. Normal-sized prostate gland. ABDOMINAL WALL: The abdominal wall is intact. BONES: Grade 1 spondylolisthesis of L5 upon S1 with bilateral L5 pars defect. No suspicious osseous lytic or blastic lesions seen. IMPRESSION: 1. No acute intra-abdominal or pelvic disease. Normal appendix. 2. Pandiverticulosis without diverticulitis. 3. Mild bilateral renal atrophy. 4. Severe arteriosclerosis of the medium caliber vessels. 5. Grade 1 spondylolisthesis L5 upon S1 with bilateral L5 pars defect.. 01/19 23:31 Order name: CBC with Diff; Complete Time: 00:42 kb 01/19 23:31 Order name: CMP; Complete Time: 02:35 kb 01/19 23:31 Order name: Lipase; Complete Time: 02:35 kb 01/19 23:31 Order name: Urinalysis w/ reflexes; Complete Time: 00:13 kb 01/20 00:13 Order name: Urine Culture EDMS 01/19 23:31 Order name: CT Abd/Pelvis - Without Contrast kb 01/19 23:31 Order name: IV Saline Lock; Complete Time: 00:20 kb 01/19 23:31 Order name: Labs collected and sent; Complete Time: 00:20 kb Administered Medications: 03:13 Drug: HYDROcodone-acetaminophen PO 5 mg-325 mg 1 tabs PO once Route: PO; jb4 03:13 Drug: Ondansetron PO 4 mg PO once Route: PO; jb4 Disposition: 04:02 Co-signature as Attending Physician, Vin Guzman MD I agree with the assessment sp4 and plan of care. I reviewed the patient's care provided by Advanced Practice Provider \T\ agree w/ the diagnosis \T\ care plan. I personally saw the pt \T\ performed a substantive portion of the visit, incldng all aspects of the (History/Exam/Medical Decision Making). Disposition Summary: 01/21/24 04:08 Discharge Ordered Notes: Location: Home sp4 Problem: new sp4 Symptoms: have improved sp4 Condition: Stable sp4 Diagnosis - UTI/ Urinary tract infection, site not specified sp4 - Abdominal discomfort, abdominal musculature weakness sp4 Followup: sp4 - With: Jani Escobar DO - When: 7 - 10 days - Reason: Recheck today's complaints Discharge Instructions: - Discharge Summary Sheet sp4 - Urinary Tract Infection, Adult, [id number]-[id number] sp4 Forms: - Patient Portal Instructions sp4 Prescriptions: - Cephalexin 500 mg Oral Capsule - take 1 capsule ORAL route every 12 hours for 10 days; 20 capsule; Refills: 0, sp4 Product Selection Permitted - Tramadol 50 mg Oral tablet - take 1 tablet ORAL route every 8 hours PRN pain; 20 tablet; Refills: 0, Product sp4 Selection Permitted - promethazine 25 mg Oral tablet - take 0.5 tablet ORAL route every 8 hours As needed PRN nausea; 20 tablet; sp4 Refills: 0, Product Selection Permitted Signatures: Dispatcher [employer] EDMS Suzan Monge, Stanley Newby RN RN jb4 Vin Guzman MD MD sp4 Corrections: (The following items were deleted from the chart) 01/19 23:49 23:48 PMHx: Dialysis; jb4 jb4
[2024-01-21 04:50] VITALS: BP 161/64; TEMP 97.9; O2SAT 100
--- NOTE | 2024-01-22 12:26 | RAD REPORT ---
EXAM DESCRIPTION: CT - Abdomen Pelvis Wo Contrast - 01/21/2024 6:37 am CLINICAL HISTORY: 79 years Male, RLQ AND BACK PAIN, ABD SWELLING TECHNIQUE: Helical CT axial images are obtained from the lung bases to the pubic symphysis without I V contrast. No oral contrast was administered. Multiplanar reconstruction. This exam was performed ac cording to our departmental dose-optimization program, which includes automated exposure control, adj ustment of the mA and/or kV according to patient size and/or use of iterative reconstruction techniqu e. COMPARISON: None. FINDINGS: LUNG BASES: No basilar consolidation or effusions. LIVER: Normal in size. Normal attenuation. No focal masses. HEPATOBILIARY: Normal-appearing gallbladder. No intra- or extrahepatic ductal dilatation. SPLEEN: Normal size. Sub-5 mm calcified granulomata. PANCREAS: Normal size and contour. No focal mass. ADRENAL GLANDS: Normal size. No adrenal masses. KIDNEYS: No obstructing calculi or hydronephrosis bilaterally. Mild bilateral renal atrophy. Modera te renal vascular callus lesions. No nephrolithiasis. A few small simple right renal cysts with the l argest within the lower pole measuring 1.8 cm; no further workup is warranted. BOWEL AND MESENTERY: No small or large bowel dilatation. Pandiverticulosis. Normal appendix. No abn ormal mesenteric lymphadenopathy. No free fluid or pneumoperitoneum. RETROPERITONEUM: Normal caliber abdominal aorta without aneurysm. Severe arteriosclerosis of the medi um caliber vessels. No abnormal retroperitoneal lymphadenopathy. PELVIS: Urinary bladder is suboptimally distended. Normal-sized prostate gland. ABDOMINAL WALL: The abdominal wall is intact. BONES: Grade 1 spondylolisthesis of L5 upon S1 with bilateral L5 pars defect. No suspicious osseous lytic or blastic lesions seen. IMPRESSION: 1. No acute intra-abdominal or pelvic disease. Normal appendix. 2. Pandiverticulosis without diverticulitis. 3. Mild bilateral renal atrophy. 4. Severe arteriosclerosis of the medium caliber vessels. 5. Grade 1 spondylolisthesis L5 upon S1 with bilateral L5 pars defect. Electronically signed by: Josh Watt MD 01/21/2024 12:48 AM CDT Due to temporary technical issues with the PACS/Fluency reporting system, reports are being signed by the in house radiologist without review as a courtesy to ensure prompt reporting. The interpreting r adiologist is fully responsible for the content of the report.
== END ==
LOC: ER 23:14
DX: N39.0 Urinary tract infection, site not specified (principal); M62.81 Muscle weakness (generalized); Z99.2 Dependence on renal dialysis; Z95.818 Presence of other cardiac implants and grafts; Z95.1 Presence of aortocoronary bypass graft
CPT/HCPCS: 36415; 74176; 81001; 87086; 87088; 99284

== ENCOUNTER 2024-04-04 09:51 | Emergency (ER) | payer OTHER ==
[2024-04-04 10:52] LABS: Absolute Eosinophils 0.2 K/uL (0-0.5); Absolute Monocytes 0.5 K/uL (0.1-1.3); Absolute Neutrophil 3.3 K/uL (1.8-8.0); Basophils % 0.9 % (0-1.3); Eosinophils % 4.3 % (0-4.4); Hemoglobin 9.2 g/dL (13.6-17.9); Lymphocytes % 19.3 % (15.3-44.8); MCH 29.9 pg (27.0-35.0); MCHC 32.8 g/dL (32.0-36.0); MCV 91.3 fL (80-100); MPV 9.3 fL (7.6-11.3); Monocytes % 9.1 % (3.3-12.3); Neutrophils % 66.4 % (41.7-73.7); Platelets 153 thou/uL (152-406); RBC Red Blood Cell Count 3.07 M/uL (4.33-5.43); Red Cell Distribution Width 15.4 % (12.1-15.2)
[2024-04-04 11:04] LABS: PT Prothrombin Time 11.7 SECONDS (9.5-12.5); Protime INR 1.07
[2024-04-04 11:16] LABS: ALT/SGPT 15 U/L (16-61); Albumin 3.4 g/dL (3.4-5.0); Albumin/Globulin Ratio 1.1 (1.1-1.8); Alkaline Phosphatase 108 U/L (45-117); Anion Gap 13.9 mEq/L (5.0-15.0); BUN Blood Urea Nitrogen 87 mg/dL (7-18); Bicarbonate 24 mEq/L (21-32); Bilirubin Total 0.4 mg/dL (0.2-1.0); Globulin 3.2 g/dL (2.3-3.5); Glomerular Filtration Rate 5 ml/min (=/>90); Glucose Level 221 mg/dL (74-106); Magnesium 2.5 mg/dL (1.6-2.4); Potassium 4.9 mEq/L (3.5-5.1); Protein, Total 6.6 g/dL (6.4-8.2); Sodium Level 136 mEq/L (136-145); Troponin High Sensitivity 37.2 pg/mL (<58.9)
[2024-04-04 11:19] LABS: AST/SGOT < 10 U/L (15-37); Bilirubin Direct < 0.2 mg/dL (0-0.2); Bilirubin Indirect, Calculated 0.2 mg/dL (0.2-0.8)
--- NOTE | 2024-04-04 11:49 | RAD REPORT ---
EXAM DESCRIPTION: CT - Abdomen Pelvis W Contrast - 04/04/2024 11:01 am CLINICAL HISTORY: Abd pain;Lower GI bleed COMPARISON: No comparisons TECHNIQUE: Thin cut axial CT imaging of the abdomen and pelvis was performed following intravenous a dministration of 100 mL Isovue 300. Multiplanar reformats were generated and reviewed. All CT scans are performed using dose optimization technique as appropriate and may include automated exposure control or mA/KV adjustment according to patient size. FINDINGS: No suspicious findings in the lung bases. The liver, spleen, adrenal glands, and pancreas show no suspicious findings. Gallbladder is decompres sed limiting evaluation. Symmetric renal function, with bilateral cortical atrophic changes and vascular calcifications. Exoph ytic right mid to lower pole 2.1 cm cyst anteriorly and other smaller cortical cysts are incidentally noted, favored to be benign with no hydronephrosis or suspicious renal mass. No dilated bowel loops or bowel wall thickening. No free air, free fluid or inflammatory stranding. N o hernia, mass or bulky lymphadenopathy. The urinary bladder is decompressed with show limits evaluat ion, with diffuse mild bladder wall thickening. No suspicious bony findings. Bilateral pars interarticularis defects at L5, without significant sublu xation. IMPRESSION: No acute intra-abdominal process. No suspicious masses or vascular malformations identified on this CT. If there is persistent lower GI bleeding, abdominal scintigraphy, or GI bleeding CT protocol including arterial phase imaging, may b e considered to be performed at the time of active bleeding.
--- NOTE | 2024-04-04 12:00 | EDPHYS ---
Physician Documentation [facility] Name: Kel Clark Age: 79 yrs Sex: Male : 1945 Arrival Date: 04/04/2024 Time: 09:51 Bed 20 Private MD: ED Physician Ramiro Donald HPI: 04/04 10:47 This 79 yrs old Male presents to ER via Ambulatory with complaints of Rectal sp3 Bleeding. 10:47 79-year-old male with a history of coronary artery disease status post triple bypass sp3 approximately 2 months ago, end-stage renal disease on dialysis, diabetes, hypertension now presents to the ED with chief complaint bloody stool x 2 since 4 AM. They state that the stool is dark brown but not bright red. No prior history of GI bleeds. Last colonoscopy approximately 5 years ago. Patient has no other symptoms including weakness, syncope, near syncope, chest pain, shortness of breath, paleness, abdominal pain, vomiting, bleeding anywhere else, rash, or any other signs or symptoms on ROS at this time.. Historical: - Allergies: 10:03 No Known Allergies; jl7 - PMHx: 10:03 cardiac stent; High Cholesterol; dialysis TTS; PERITONEAL DIALYSIS; Hypertension; jl7 Diabetes - IDDM; - PSHx: 10:03 Double bipass ([place]); jl7 - Immunization history:: Adult Immunizations up to date. - Infectious Disease History:: Denies. - Social history:: Smoking status: Patient denies any tobacco usage or history of. ROS: 10:49 Constitutional: Negative for fever, chills, and weight loss, Eyes: Negative for injury, sp3 pain, redness, and discharge, Neck: Negative for injury, pain, and swelling, Cardiovascular: Negative for chest pain, palpitations, and edema, Respiratory: Negative for shortness of breath, cough, wheezing, and pleuritic chest pain, Back: Negative for injury and pain, MS/Extremity: Negative for injury and deformity, Skin: Negative for injury, rash, and discoloration, Neuro: Negative for headache, weakness, numbness, tingling, and seizure, Psych: Negative for depression, anxiety, suicide ideation, homicidal ideation, and hallucinations, Allergy/Immunology: Negative for hives, rash, and allergies, Endocrine: Negative for neck swelling, polydipsia, polyuria, polyphagia, and marked weight changes, Hematologic/Lymphatic: Negative for swollen nodes, abnormal bleeding, and unusual bruising, 10:49 All other systems are negative, Exam: 10:49 Constitutional: This is a well developed, well nourished patient who is awake, alert, sp3 and in no acute distress. Head/Face: Normocephalic, atraumatic. Eyes: Pupils equal round and reactive to light, extra-ocular motions intact. Lids and lashes normal. Conjunctiva and sclera are non-icteric and not injected. Cornea within normal limits. Periorbital areas with no swelling, redness, or edema. Neck: Trachea midline, no thyromegaly or masses palpated, and no cervical lymphadenopathy. Supple, full range of motion without nuchal rigidity, or vertebral point tenderness. No Meningismus. Chest/axilla: Normal chest wall appearance and motion. Nontender with no deformity. No lesions are appreciated. Cardiovascular: Regular rate and rhythm with a normal S1 and S2. No gallops, murmurs, or rubs. Normal PMI, no JVD. No pulse deficits. Respiratory: Lungs have equal breath sounds bilaterally, clear to auscultation and percussion. No rales, rhonchi or wheezes noted. No increased work of breathing, no retractions or nasal flaring. Abdomen/GI: Soft, non-tender, with normal bowel sounds. No distension or tympany. No guarding or rebound. No evidence of tenderness throughout. Back: No spinal tenderness. No costovertebral tenderness. Full range of motion. Skin: Warm, dry with normal turgor. Normal color with no rashes, no lesions, and no evidence of cellulitis. MS/ Extremity: Pulses equal, no cyanosis. Neurovascular intact. Full, normal range of motion. Neuro: Awake and alert, GCS 15, oriented to person, place, time, and situation. Cranial nerves II-XII grossly intact. Motor strength 5/5 in all extremities. Sensory grossly intact. Cerebellar exam normal. Normal gait. Psych: Awake, alert, with orientation to person, place and time. Behavior, mood, and affect are within normal limits. 10:49 : Rectal exam: Rectal exam demonstrates normal stool with no darkness or active bleeding., 11:18 ECG was reviewed by the Attending Physician. EKG demonstrates normal sinus rhythm at 67 sp3 bpm with a first-degree AV block with AK interval 224, normal intervals otherwise, normal axis, normal QRS, nonspecific ST's ST changes without evidence of acute ischemia and occasional PVC. Vital Signs: 10:02 BP 140 / 50; Pulse 83; Resp 16; Temp 98.1; Pulse Ox 100% ; jl7 10:44 BP 101 / 40; Pulse 84; Resp 15; Pulse Ox 99% ; nj1 12:20 BP 111 / 49; Pulse 76; Resp 19; Pulse Ox 100% ; nj1 MDM: 10:22 Patient medically screened. sp3 10:50 Data reviewed: vital signs, nurses notes, old medical records, lab test result(s), sp3 radiologic studies. ED course: 79-year-old male with PMH above now with 2 episodes of dark stools. No current diarrhea or active bowel movements. Rectal exam normal. Vital signs are normal including pulse rate and blood pressure. Will obtain general laboratory values and CT scan of the abdomen pelvis to assess. If workup negative likely discharge with GI follow-up. Differential diagnosis includes hemorrhoidal bleed, lower GI bleed, intermittent bleed, colitis, among others. I am not highly suspicious for vascular pathology, sepsis, shock or any other critical illness/process. Patient is okay with the plan and all questions answered.. 11:58 ED course: Hemoglobin 9.2 slightly down from 10.1 one month ago. Patient has no active sp3 bleeding. Hemodynamically continues to be stable. We will safely discharge him home with follow-up to PCP and GI instructions return here for any further bleeding or concerns.. 04/04 10:24 Order name: Basic Metabolic Panel; Complete Time: :3 04/04 10:24 Order name: CBC with Diff; Complete Time: 3 04/04 10:24 Order name: LFT's; Complete Time: 3 04/04 10:24 Order name: Magnesium; Complete Time: 3 04/04 10:24 Order name: PT-INR; Complete Time: 3 04/04 10:24 Order name: Troponin HS; Complete Time: 3 04/04 10:24 Order name: CT Abd/Pelvis - IV Contrast Only; Complete Time: 11:3 04/04 10:24 Order name: EKG; Complete Time: 10:25 sp3 04/04 10:24 Order name: Cardiac monitoring; Complete Time: : sp3 04/04 10:24 Order name: EKG - Nurse/Tech; Complete Time: 11:00 sp3 04/04 10:24 Order name: IV Saline Lock; Complete Time: : sp3 04/04 10:24 Order name: Labs collected and sent; Complete Time: : sp3 04/04 10:24 Order name: O2 Per Protocol; Complete Time: : sp3 04/04 10:24 Order name: O2 Sat Monitoring; Complete Time: : sp3 Administered Medications: No medications were administered Disposition Summary: 04/04/24 11:59 Discharge Ordered Notes: Location: Home sp3 Condition: Stable sp3 Diagnosis - Melena, abdominal pain resolved sp3 Followup: sp3 - With: Private Physician - When: Upon discharge from the Emergency Department - Reason: Continuance of care Discharge Instructions: - Discharge Summary Sheet sp3 - Rectal Bleeding sp3 Forms: - Medication Reconciliation Form sp3 - Antibiotic Education sp3 - Prescription Opioid Use sp3 - Patient Portal Instructions sp3 - Leadership Thank You Letter sp3 Signatures: Dispatcher [employer] Dorothea Monsalve RN RN jl7 Ramiro Donald MD MD sp3 Corrections: (The following items were deleted from the chart) 10:25 10:25 Abdomen Pelvis W Con+CT.RAD.BRZ ordered. RUDI GRIJALVA
--- NOTE | 2024-04-04 12:00 | ER ---
Nurse's Notes [facility] [place] Name: Kel Clark Age: 79 yrs Sex: Male : 1945 Arrival Date: 04/04/2024 Time: 09:51 Bed 20 Private MD: Diagnosis: Melena, abdominal pain resolved Presentation: 04/04 10:02 Chief complaint: Patient states: RECTAL BLEEDING SINCE THIS AM. Coronavirus screen: At jl7 this time, the client does not indicate any symptoms associated with coronavirus-19. Ebola Screen: No symptoms or risks identified at this time. Initial Sepsis Screen: Does the patient meet any 2 criteria? No. Patient's initial sepsis screen is negative. Does the patient have a suspected source of infection? No. Patient's initial sepsis screen is negative. Risk Assessment: Do you want to hurt yourself or someone else? Patient reports no desire to harm self or others. Onset of symptoms was April 04, 2024. 10:02 Method Of Arrival: Ambulatory [facility] 10:02 Acuity: SAMEER 3 jl7 Triage Assessment: 10:03 General: Appears in no apparent distress. Behavior is calm, cooperative, appropriate jl7 for age. Pain: Denies pain. GI: Reports rectal bleeding. Historical: - Allergies: 10:03 No Known Allergies; jl7 - PMHx: 10:03 cardiac stent; High Cholesterol; dialysis TTS; PERITONEAL DIALYSIS; Hypertension; jl7 Diabetes - IDDM; - PSHx: 10:03 Double bipass ([place]); jl7 - Immunization history:: Adult Immunizations up to date. - Infectious Disease History:: Denies. - Social history:: Smoking status: Patient denies any tobacco usage or history of. Screenin:12 [place] ED Fall Risk Assessment (Adult) History of falling in the last 3 months, nj1 including since admission No falls in past 3 months (0 pts) Confusion or Disorientation No (0 pts) Intoxicated or Sedated No (0 pts) Impaired Gait Yes (1 pt) Mobility Assist Device Used Yes (1 pt) Altered Elimination No (0 pt) Score/Fall Risk Level 0 - 2 = Low Risk Oriented to surroundings, Maintained a safe environment, Hourly rounding (assess needs \T\ fall precautionary measures) done. Abuse screen: Denies threats or abuse. Denies injuries from another. Nutritional screening: No deficits noted. Tuberculosis screening: No symptoms or risk factors identified. Assessment: 10:11 General: Appears in no apparent distress. comfortable, Behavior is calm, cooperative, nj1 appropriate for age. Neuro: Level of Consciousness is awake, alert, obeys commands, Oriented to person, place, time, situation. Cardiovascular: Patient's skin is warm and dry. Respiratory: Airway is patent Respiratory effort is even, unlabored. GI: Reports rectal bleeding. 10:11 Pain: Denies pain. nj1 12:10 Reassessment: DC on hold, awaiting on Dr Donald to come talk to patient. nj1 12:10 Reassessment: Patient appears in no apparent distress at this time. Patient and/or nj1 family updated on plan of care and expected duration. Pain level reassessed. Patient is alert, oriented x 3, equal unlabored respirations, skin warm/dry/pink. Vital Signs: 10:02 BP 140 / 50; Pulse 83; Resp 16; Temp 98.1; Pulse Ox 100% ; jl7 10:44 BP 101 / 40; Pulse 84; Resp 15; Pulse Ox 99% ; nj1 12:20 BP 111 / 49; Pulse 76; Resp 19; Pulse Ox 100% ; nj1 ED Course: 09:55 Patient arrived in ED. im 09:55 Carlos A Bailon MD is Attending Physician. rt 09:55 Attending Physician role handed off by Carlos A Bailon MD sp3 09:55 Ramiro Donald MD is Attending Physician. sp3 10:03 Triage completed. jl7 10:04 Annamarie Ontiveros, RN is Primary Nurse. nj1 10:04 Arm band placed on. jl7 10:12 Patient has correct armband on for positive identification. Bed in low position. Call nj1 light in reach. Side rails up X 1. Adult w/ patient. Provided Education on: call light, fall precautions. 10:15 Placed in gown. nj1 10:40 Client placed on continuous cardiac and pulse oximetry monitoring. NIBP monitoring nj1 applied. environmental monitoring specialist on. 10:40 Inserted saline lock: 20 gauge in right antecubital area, using aseptic technique. nj1 Blood collected. 11:00 EKG done, by ED staff, reviewed by Ramiro Donald MD. zm 11:03 CT Abd/Pelvis - IV Contrast Only In Process Unspecified. EDMS 12:30 No provider procedures requiring assistance completed. nj1 12:30 IV discontinued, intact, bleeding controlled, Pressure dressing applied. nj1 Administered Medications: No medications were administered Medication: 12:30 VIS not applicable for this client. nj1 Outcome: 11:59 Discharge ordered by . sp3 12:30 Discharged to home ambulatory, with family, nj1 12:30 Condition: stable 12:30 Discharge instructions given to patient, Instructed on discharge instructions, follow up and referral plans. Demonstrated understanding of instructions, follow-up care, 12:35 Patient left the ED. nj1 Signatures: Dispatcher [employer] EDMS Dorothea Mittal RN RN jl7 Ramiro Donald MD MD sp3 Lucretia Fernández Ryan, MD MD rt Annamarie Ontiveros RN RN nj1 Yanira Levy Corrections: (The following items were deleted from the chart) 10:45 10:11 General: Appears in no apparent distress. comfortable, Behavior is calm, nj1 cooperative, appropriate for age, nj1
[2024-04-04 12:47] VITALS: TEMP 98.1; O2SAT 100
[2024-04-04 13:04] VITALS: BP 111/49
--- NOTE | 2024-04-05 16:53 | EKG ---
Test Date: 2024-04-04 Test Time: 10:50:49 Staff Scientist: DELILAH MEASUREMENT RESULTS: Intervals: Rate: 67 MD: 224 QRSD: 96 QT: 416 QTc: 439 [place]: P: 55 MD: 224 QRS: 66 T: 90 INTERPRETIVE STATEMENTS: Sinus rhythm with 1st degree AV block with occasional premature ventricular complexes Otherwise normal ECG Compared to ECG 09/01/2023 17:46:02 First degree AV block now present Sinus tachycardia no longer present Myocardial infarct finding no longer present T-wave abnormality no longer present Possible ischemia no longer present Electronically Signed On 04-05-24 16:49:22 CDT by Rayshawn Trejo
== END 2024-04-04 12:35 | disposition home or self-care (01) ==
LOC: ER 09:51
DX: K92.1 Melena (principal); E11.22 Type 2 diabetes mellitus with diabetic chronic kidney disease; I12.0 Hypertensive chronic kidney disease with stage 5 chronic kidney disease or end stage renal disease; N18.6 End stage renal disease; Z95.1 Presence of aortocoronary bypass graft; Z95.818 Presence of other cardiac implants and grafts; Z99.2 Dependence on renal dialysis
CPT/HCPCS: 93005; 85025; 80048; 36415; 83735; 85610; 80076; 84484; 74177; 99284; Q9967

== ENCOUNTER 2025-08-13 10:10 | Emergency (ER) | payer OTHER ==
[2025-08-13 11:03] LABS: Absolute Lymphocytes (CBC) 1.0 K/uL (0.7-4.9); Hematocrit 36.1 % (39.6-49.0); Hemoglobin 12.0 g/dL (13.6-17.9); MCH 28.9 pg (27.0-35.0); MCHC 33.3 g/dL (32.0-36.0); MCV 86.7 fL (80-100); MPV 8.4 fL (7.6-11.3); Nucleated RBC Absolute Count 0.0 (0-0); Nucleated Red Blood Cells % 0.1 % (0-0); RBC Red Blood Cell Count 4.16 M/uL (4.33-5.43); White Blood Count 6.20 thou/uL (4.3-10.9)
[2025-08-13 11:05] LABS: PT Prothrombin Time 12.0 SECONDS (10-13.0); Protime INR 1.06
[2025-08-13 11:21] LABS: Anion Gap 8.2 mEq/L (5.0-15.0); BUN Blood Urea Nitrogen 18.0 mg/dL (7-18); Glucose Level 171.0 mg/dL (74-106); Magnesium 2.2 mg/dL (1.6-2.4); Potassium 3.2 mEq/L (3.5-5.1); Troponin High Sensitivity 46.2 pg/mL (<58.9)
--- NOTE | 2025-08-13 11:41 | ER ---
Nurse's Notes [facility] Name: Kel Clark Age: 80 yrs Sex: Male : 1945 Arrival Date: 08/13/2025 Time: 10:10 Bed 12 Private MD: Diagnosis: Chest pain, unspecified Presentation: 08/13 10:36 Chief complaint: EMS states: chest pain while at dialysis, started about an hour ago , iw finished all but 20 minutes of dialysis. they gave 1 SL Nitro and [employer], pain has now resolved. Coronavirus screen: At this time, the client does not indicate any symptoms associated with coronavirus-19. Ebola Screen: No symptoms or risks identified at this time. Initial Sepsis Screen: Does the patient meet any 2 criteria? No. Patient's initial sepsis screen is negative. Does the patient have a suspected source of infection? No. Patient's initial sepsis screen is negative. Risk Assessment: Do you want to hurt yourself or someone else? Patient reports no desire to harm self or others. Onset of symptoms was August 13, 2025. 10:36 Method Of Arrival: EMS: [facility] iw 10:36 Acuity: SAMEER 2 iw Triage Assessment: 11:50 General: Appears in no apparent distress. Behavior is calm, cooperative. iw Historical: - Allergies: 10:53 No Known Allergies; iw - PMHx: 10:37 cardiac stent; Diabetes - IDDM; dialysis TTS; High Cholesterol; Hypertension; iw PERITONEAL DIALYSIS; - PSHx: 10:37 Coronary artery bypass graft; iw Screenin:00 [facility] ED Fall Risk Assessment (Adult) History of falling in the last 3 months, iw including since admission No falls in past 3 months (0 pts) Confusion or Disorientation No (0 pts) Intoxicated or Sedated No (0 pts) Impaired Gait No (0 pts) Mobility Assist Device Used No (0 pt) Altered Elimination No (0 pt) Score/Fall Risk Level 0 - 2 = Low Risk Oriented to surroundings, Maintained a safe environment. Abuse screen: Denies threats or abuse. Nutritional screening: No deficits noted. Tuberculosis screening: No symptoms or risk factors identified. Assessment: 10:36 General: Appears in no apparent distress. Behavior is calm, cooperative. Pain: iw Complains of pain in chest Pain does not radiate. Pain currently is 0 out of 10 on a pain scale. Pain began 1 hour ago. Is episodic. Neuro: Level of Consciousness is awake, alert, obeys commands, Oriented to person, place, time, situation, Moves all extremities. Full function. Cardiovascular: Patient's skin is warm and dry. Respiratory: Respiratory effort is even, unlabored, Respiratory pattern is regular, symmetrical. 11:58 Reassessment: Patient appears in no apparent distress at this time. Patient and/or iw family updated on plan of care and expected duration. Pain level reassessed. Patient is alert, oriented x 3, equal unlabored respirations, skin warm/dry/pink. Patient denies pain at this time. Patient states feeling better. Patient states symptoms have improved. Vital Signs: 10:37 BP 151 / 71; Pulse 78; Resp 19; Temp 98.1; Pulse Ox 98% on R/A; iw ED Course: 10:13 Patient arrived in ED. bd 10:21 Suzan Monge FNP-C is PHCP. kb 10:21 Gregory Alvarez DO is Attending Physician. kb 10:36 Arm band placed on. iw 10:37 Triage completed. iw 10:50 Inserted saline lock: 20 gauge in right antecubital area, using aseptic technique. iw Blood collected. Flushed with 10 mL NS. 10:52 Kenisha Carlisle, RN is Primary Nurse. iw 11:00 Patient has correct armband on for positive identification. Client placed on continuous iw cardiac and pulse oximetry monitoring. NIBP monitoring applied. panel monitor on. 11:34 XRAY Chest (1 view) In Process Unspecified. EDMS 11:58 No provider procedures requiring assistance completed. IV discontinued, intact, iw bleeding controlled, No redness/swelling at site. Pressure dressing applied. Patient maintains SpO2 saturation greater than 95% on room air. Administered Medications: No medications were administered Outcome: 11:41 Discharge ordered by MD. kb 11:58 Discharged to home ambulatory, iw 11:58 Condition: good 11:58 Discharge instructions given to patient, Instructed on discharge instructions, follow up and referral plans. Demonstrated understanding of instructions, follow-up care, medications, 11:59 Patient left the ED. iw Signatures: Dispatcher [employer] EDMS Suzan Monge FNP-C FNP-Trisha Farfan Kenisha Carlisle, RN RN iw Corrections: (The following items were deleted from the chart) 10:37 10:37 PSHx: Double bipass; iw iw 10:53 10:37 Pulse 78bpm; Resp 19bpm; Pulse Ox 98% RA; Temp 98.1F; iw iw 08/14 08:48 10 10:50 Inserted saline lock: 14 gauge 20 gauge in right antecubital area, using iw aseptic technique. Blood collected. Flushed with 10 mL NS iw
--- NOTE | 2025-08-13 11:41 | EDPHYS ---
Physician Documentation [facility] Name: Kel Clark Age: 80 yrs Sex: Male : 1945 Arrival Date: 08/13/2025 Time: 10:10 Bed 12 Private MD: ED Physician Gregory Alvarez HPI: 08/13 10:43 This 80 yrs old Male presents to ER via EMS with complaints of Chest Pain. 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 States kb the pain decreased after nitro that was given to him at dialysis then resolved after aspirin given by EMS. Reports he did have shortness of breath, but that has resolved as well. . Historical: - Allergies: 10:53 No Known Allergies; iw - PMHx: 10:37 cardiac stent; Diabetes - IDDM; dialysis TTS; High Cholesterol; Hypertension; iw PERITONEAL DIALYSIS; - PSHx: 10:37 Coronary artery bypass graft; iw ROS: 10:45 Constitutional: As per HPI kb Exam: 10:45 Constitutional: This is a well developed, well nourished patient who is awake, alert, kb and in no acute distress. Head/Face: Normocephalic, atraumatic. ENT: Moist Mucous membranes Cardiovascular: Regular rate Respiratory: Respirations even and unlabored. No increased work of breathing. Talking in full sentences Skin: Warm, dry with normal turgor. Normal color. MS/ Extremity: Pulses equal, no cyanosis. Neurovascular intact. Full, normal range of motion. Neuro: Awake and alert, GCS 15, oriented to person, place, time, and situation. 10:45 ECG was reviewed by the Attending Physician. Vital Signs: 10:37 BP 151 / 71; Pulse 78; Resp 19; Temp 98.1; Pulse Ox 98% on R/A; iw MDM: 10:21 Medical Screening Exam initiated kb 11:41 Differential diagnosis: arrhythmia, acute mi, cad. Data reviewed: vital signs, nurses kb notes. Consideration of Admission/Observation Escalation of care including admission/observation considered. admission considered and recommended, but pt does not want to stay. States he is ready to go home now. States he feels good now and will return if symptoms come back. Historians other than the Patient: EMS: [facility]. Counseling: I had a detailed discussion with the patient and/or guardian regarding the historical points, exam findings, and any diagnostic results supporting the discharge/admit diagnosis, lab results, radiology results, the need for further work-up and treatment in the hospital. 08/13 10:23 Order name: Basic Metabolic Panel; Complete Time: 11:22 kb 08/13 10:23 Order name: CBC with Diff; Complete Time: 11:22 kb 08/13 10:23 Order name: Magnesium; Complete Time: 11:22 kb 08/13 10:23 Order name: PT-INR; Complete Time: 11:09 kb 08/13 10:23 Order name: Troponin HS; Complete Time: 11:22 kb 08/13 10:23 Order name: XRAY Chest (1 view); Complete Time: 12:26 kb 08/13 10:23 Order name: Cardiac monitoring kb 08/13 10:23 Order name: EKG - Nurse/Tech; Complete Time: 10:52 kb 08/13 10:23 Order name: IV Saline Lock; Complete Time: 10:52 kb 08/13 10:23 Order name: Labs collected and sent; Complete Time: 10:52 kb 08/13 10:23 Order name: O2 Per Protocol kb 08/13 10:23 Order name: O2 Sat Monitoring kb EC:45 Rate is 71 beats/min. Rhythm is regular. QRS [place] is Normal. [place] interval is prolonged kb at 226 msec. QRS interval is normal at 90 msec. QT interval is normal at 469 msec. Administered Medications: No medications were administered Disposition: 14:54 I was immediately available on-site in the Emergency Department for consultation in the [facility] care of the patient. Disposition Summary: 08/13/25 11:41 Discharge Ordered Notes: Location: Home kb Condition: Stable kb Diagnosis - Chest pain, unspecified kb Followup: kb - With: Emergency Department - When: As needed - Reason: Worsening of condition Followup: kb - With: Private Physician - When: 2 - 3 days - Reason: Recheck today's complaints, Continuance of care, Re-evaluation by your physician Discharge Instructions: - Discharge Summary Sheet kb - Nonspecific Chest Pain, Adult, [id number] kb Forms: - Medication Reconciliation Form kb - Antibiotic Education kb - Prescription Opioid Use kb - Patient Portal Instructions kb - Leadership Thank You Letter kb Signatures: Dispatcher [employer] EDSuzan Samano SURGICAL ASST-C SURGICAL ASST-Ckb Kenisha Carlisle, RN RN iw Gregory Alvarez, DO ms3 Corrections: (The following items were deleted from the chart) 10:24 10:24 BASIC METABOLIC PANEL+C.LAB.BRZ ordered. EDMS EDMS 10:24 10:24 CBC+H.LAB.BRZ ordered. EDMS EDMS 10:24 10:24 MAGNESIUM+C.LAB.BRZ ordered. EDMS EDMS 10:24 10:24 PROTIME (+INR)+COAG.LAB.BRZ ordered. EDMS EDMS 10:24 10:24 Troponin High Sensitivity+C.LAB.BRZ ordered. EDMS EDMS 10:24 10:24 Chest Single View+RAD.RAD.BRZ ordered. EDMS EDMS 10:37 10:37 PSHx: Double bipass; iw iw
--- NOTE | 2025-08-13 11:58 | RAD REPORT ---
EXAMINATION: ONE VIEW CHEST XR CLINICAL INDICATION: Male, 80 years old.,CHEST PAIN TECHNIQUE: Frontal chest projection is submitted. Examination is limited by patient positioning and t echnique. COMPARISON: 09/01/2023 FINDINGS: The lungs are well inflated and clear. No pneumothorax or sizable effusion. The heart is normal in s ize. Mediastinal contours are unremarkable. IMPRESSION: No acute intrathoracic abnormalities.
[2025-08-13 12:30] VITALS: BP 151/71; TEMP 98.1; O2SAT 98
== END 2025-08-13 11:59 | disposition home or self-care (01) ==
LOC: ER 10:10
DX: R07.9 Chest pain, unspecified (principal); Z99.2 Dependence on renal dialysis; Z95.818 Presence of other cardiac implants and grafts; Z95.1 Presence of aortocoronary bypass graft
CPT/HCPCS: 36415; 71045; 80048; 83735; 84484; 85025; 85610; 93005; 99284